=== PATIENT | male | born 1980 | race Caucasian/White ===

== ENCOUNTER 2019-10-25 16:06 | Emergency (ER) | payer SELFPAY ==
[2019-10-25] MEDS ORDERED: LORAZEPAM 1 MG TABLET ONE (16:51)
--- NOTE | 2019-10-25 17:18 | EDPHYS ---
Physician Documentation [facility] Name: Hermann Blackburn Age: 38 yrs Sex: Male : 1980 Arrival Date: 10/25/2019 Time: 16:08 Bed 5 Private MD: ED Physician Kirk Watson HPI: 10/24 16:42 This 38 yrs old Male presents to ER via Ambulatory with complaints of Anxiety.rn 16:42 The patient presents to the emergency department with anxiety. Onset: The rn symptoms/episode began/occurred yesterday. Severity of symptoms: At their worst the symptoms were moderate in the emergency department the symptoms are unchanged. The patient has experienced similar episodes in the past. The patient has not recently seen a physician. Reports having a lot of anxiety lately, recently moved from [place], denies drug use, states these symptoms identical to previous panic attacks. No new symptoms. Thoughts are racing but denies suicidal or homicidal thoughts. Denies hallucinations.. Historical: - Allergies: 16:30 No Known Allergies; ca1 - Home Meds: 16:30 None [Active]; ca1 - PMHx: 16:30 Anxiety; Hypertension; ca1 - PSHx: 16:30 None; ca1 - Immunization history:: Adult Immunizations up to date, Flu vaccine is up to date. - Social history:: Smoking status: Patient reports the use of cigarette tobacco products, smokes one pack cigarettes per day. Patient uses alcohol, Patient/guardian denies using street drugs, IV drugs. ROS: 16:52 Constitutional: Negative for fever, chills, and weight loss, Neck: Negative for injury, rn pain, and swelling, Cardiovascular: Negative for chest pain, palpitations, and edema, Respiratory: Negative for shortness of breath, cough, wheezing, and pleuritic chest pain, Abdomen/GI: Negative for abdominal pain, nausea, vomiting, diarrhea, and constipation, MS/Extremity: Negative for injury and deformity, Skin: Negative for injury, rash, and discoloration, Neuro: Negative for headache, weakness, numbness, tingling, and seizure. Exam: 16:52 Constitutional: This is a well developed, well nourished patient who is awake, alert, rn and in no acute distress. Ambulatory to room without difficulty or assistance. Head/Face: Normocephalic, atraumatic. ENT: MMM Cardiovascular: Tachycardic, regular Respiratory: Speaking full sentences, no increased respiratory effort Skin: Warm, dry MS/ Extremity: Pulses equal, no cyanosis. Neurovascular intact. Full, normal range of motion. Equal circumference. Neuro: Awake and alert, GCS 15, oriented to person, place, time, and situation. Cranial nerves II-XII grossly intact. Motor strength 5/5 in all extremities. Sensory grossly intact. Cerebellar exam normal. Normal gait. Vital Signs: 16:23 BP 133 / 90; Pulse 108; Resp 17 S; Temp 97.6(TE); Pulse Ox 97% on R/A; Weight 68.04 kg ca1 (R); Height 5 ft. 11 in. (180.34 cm) (R); Pain 0/10; 17:10 BP 120 / 90; Pulse 98; Resp 16; Pulse Ox 100% on R/A; Pain 0/10; iw 16:23 Body Mass Index 20.92 (68.04 kg, 180.34 cm) ca1 MDM: 16:30 Patient medically screened. rn 17:17 Differential diagnosis: anxiety, paranoia, bipolar. Data reviewed: vital signs, nurses rn notes, and as a result, I will discharge patient. Counseling: I had a detailed discussion with the patient and/or guardian regarding: the historical points, exam findings, and any diagnostic results supporting the discharge/admit diagnosis, the need for outpatient follow up, to return to the emergency department if symptoms worsen or persist or if there are any questions or concerns that arise at home. Response to treatment: the patient's symptoms have markedly improved after treatment, and as a result, I will discharge patient. Special discussion: I discussed with the patient/guardian in detail that at this point there is no indication for admission to the hospital. It is understood, however, that if the symptoms persist or worsen the patient needs to return immediately for re-evaluation. ED course: Has ride home, feels better, recommend pcp and psychiatric f/u. . Administered Medications: 16:51 Drug: Ativan 2 mg Route: PO; iw 17:24 Follow up: Response: No adverse reaction iw Disposition: 10/25/19 17:18 Discharged to Home. Impression: Anxiety disorder, unspecified. - Condition is Stable. - Discharge Instructions: Panic Attacks, Generalized Anxiety Disorder. - Medication Reconciliation Form, Thank You Letter, Antibiotic Education, Prescription Opioid Use form. - Follow up: Private Physician; When: As needed; Reason: Recheck today's complaints, Re-evaluation by your physician. - Problem is an acute exacerbation. - Symptoms have improved. Signatures: Melita Lopez RN RN iw Kirk Watson MD MD rn Acob, JEFF Caicedo RN ca1 Corrections: (The following items were deleted from the chart) 17:01 16:52 Constitutional: This is a well developed, well nourished patient who is awake, rn alert, and in no acute distress. Ambulatory to room without difficulty or assistance. rn 17:24 17:18 10/25/2019 17:18 Discharged to Home. Impression: Anxiety disorder, unspecified. iw Condition is Stable. Forms are Medication Reconciliation Form, Thank You Letter, Antibiotic Education, Prescription Opioid Use. Follow up: Private Physician; When: As needed; Reason: Recheck today's complaints, Re-evaluation by your physician. Problem is an acute exacerbation. Symptoms have improved. rn
--- NOTE | 2019-10-25 17:18 | ER ---
Nurse's Notes [facility] Name: Hermann Blackburn Age: 38 yrs Sex: Male : 1980 Arrival Date: 10/25/2019 Time: 16:08 Bed 5 Private MD: Diagnosis: Anxiety disorder, unspecified Presentation: 10/24 16:23 Chief complaint: Patient states: I have panic attacks periodically. I come to the ER, ca1 they give me Ativan I feel better after few hours. I am supposed to take medications but there are some process I have to get through but I haven't done yet because of work and because of everything that's going on. Today, around 1pm I started having anxiety attacks, I can't breathe, some SOB, rapid thoughts. Coronavirus screen: Proceed with normal triage. Patient denies a cough. Patient reports shortness of breath or difficulty breathing. Patient denies measured and/or subjective temperature greater than 100.4F prior to today's visit. Patient denies travel on a cruise ship or to a country the [facility] currently lists as an affected area. Patient denies contact with known and/or suspected case of COVID-19. Ebola Screen: Patient negative for fever greater than or equal to 101.5 degrees Fahrenheit, and additional compatible Ebola Virus Disease symptoms Patient denies exposure to infectious person. Patient denies travel to an Ebola-affected area in the 21 days before illness onset. No symptoms or risks identified at this time. Initial Sepsis Screen: Does the patient meet any 2 criteria? No. Patient's initial sepsis screen is negative. Does the patient have a suspected source of infection? No. Patient's initial sepsis screen is negative. Risk Assessment: Do you want to hurt yourself or someone else? Patient reports no desire to harm self or others. Onset of symptoms was October 25, 2019 at 13:00. 16:23 Method Of Arrival: Ambulatory ca1 16:23 Acuity: MEGHNA 3 ca1 16:34 Note Reports taking half of Xanax [employer]. ca1 Historical: - Allergies: 16:30 No Known Allergies; ca1 - Home Meds: 16:30 None [Active]; ca1 - PMHx: 16:30 Anxiety; Hypertension; ca1 - PSHx: 16:30 None; ca1 - Immunization history:: Adult Immunizations up to date, Flu vaccine is up to date. - Social history:: Smoking status: Patient reports the use of cigarette tobacco products, smokes one pack cigarettes per day. Patient uses alcohol, Patient/guardian denies using street drugs, IV drugs. Screenin:42 Abuse screen: Denies threats or abuse. Denies injuries from another. Nutritional iw screening: No deficits noted. Tuberculosis screening: No symptoms or risk factors identified. Fall Risk None identified. Assessment: 16:41 General: Appears in no apparent distress. comfortable, well developed, Behavior is iw cooperative, anxious. Pain: Denies pain. Neuro: Level of Consciousness is awake, alert, obeys commands, Oriented to person, place, time, situation, Moves all extremities. Full function. Cardiovascular: Patient's skin is warm and dry. Respiratory: Respiratory effort is even, unlabored, Respiratory pattern is regular, symmetrical. GI: Abdomen is flat, non-distended. Derm: Skin is intact, is healthy with good turgor. Musculoskeletal: Range of motion: intact in all extremities. Vital Signs: 16:23 BP 133 / 90; Pulse 108; Resp 17 S; Temp 97.6(TE); Pulse Ox 97% on R/A; Weight 68.04 kg ca1 (R); Height 5 ft. 11 in. (180.34 cm) (R); Pain 0/10; 17:10 BP 120 / 90; Pulse 98; Resp 16; Pulse Ox 100% on R/A; Pain 0/10; iw 16:23 Body Mass Index 20.92 (68.04 kg, 180.34 cm) ca1 ED Course: 16:08 Patient arrived in ED. as 16:28 Triage completed. ca1 16:30 Kirk Watson MD is Attending Physician. rn 16:30 Arm band placed on right wrist. ca1 16:35 Melita Lopez RN is Primary Nurse. iw 16:42 Patient has correct armband on for positive identification. iw 16:42 No provider procedures requiring assistance completed. Patient did not have IV access iw during this emergency room visit. Administered Medications: 16:51 Drug: Ativan 2 mg Route: PO; iw 17:24 Follow up: Response: No adverse reaction iw Outcome: 17:18 Discharge ordered by . rn 17:24 Patient left the ED. iw 17:25 Discharged to home ambulatory. iw 17:25 Condition: good 17:25 Discharge instructions given to patient, Instructed on discharge instructions, follow up and referral plans. Signatures: Keli Dangelo Irene, RN RN iw Kirk Watson MD MD rn AcMarifer benoit RN RN ca1
[2019-10-25 17:30] VITALS: TEMP 97.6
[2019-10-25 17:31] VITALS: BP 120/90; O2SAT 100
== END 2019-10-25 17:24 | disposition home or self-care (01) ==
LOC: ER 16:06
DX: F41.9 Anxiety disorder, unspecified (principal); I10 Essential (primary) hypertension; F17.210 Nicotine dependence, cigarettes, uncomplicated
CPT/HCPCS: 99283

== ENCOUNTER 2019-11-04 22:16 | Emergency (ER) | payer SELFPAY ==
--- NOTE | 2019-11-05 00:06 | EDPHYS ---
Physician Documentation [facility] Name: Hermann Blackburn Age: 38 yrs Sex: Male : 1980 Arrival Date: 11/04/2019 Time: 22:17 Bed 17 Private MD: ED Physician Kenneth Meade HPI: 11/04 00:00 This 38 yrs old Male presents to ER via Ambulatory with complaints of snw Anxiety, PTSD. 00:00 Associated signs and symptoms: Pertinent positives: unable to sleep, cannot calm snw himself, was here before and had ativan which helps. The patient has experienced similar episodes in the past, multiple times, and the symptoms today are exactly the same. The patient has been recently seen by a physician: The patient has been recently seen at the [facility], last week, for similar complaints encouraged to f/u psych and pcp. Historical: - Allergies: 11/03 22:33 No Known Allergies; ao - Home Meds: 22:33 None [Active]; ao - PMHx: 22:33 Anxiety; Hypertension; PTSD; Depression; ao - PSHx: 22:33 None; ao - Immunization history:: Adult Immunizations up to date. - Social history:: Smoking status: Patient reports the use of cigarette tobacco products, smokes one pack cigarettes per day. Patient/guardian denies using alcohol, street drugs. ROS: 23:59 Constitutional: Negative for fever, chills, and weight loss, Eyes: Negative for injury, snw pain, redness, and discharge, ENT: Negative for injury, pain, and discharge, Neck: Negative for injury, pain, and swelling, Cardiovascular: Negative for chest pain, palpitations, and edema, Respiratory: Negative for shortness of breath, cough, wheezing, and pleuritic chest pain, Abdomen/GI: Negative for abdominal pain, nausea, vomiting, diarrhea, and constipation, Back: Negative for injury and pain, : Negative for injury, bleeding, discharge, and swelling, MS/Extremity: Negative for injury and deformity, Skin: Negative for injury, rash, and discoloration, Neuro: Negative for headache, weakness, numbness, tingling, and seizure. 23:59 Psych: Positive for anxiety, depression, paranoia . Exam: 23:58 Head/Face: Normocephalic, atraumatic. snw 23:58 ENT: Nares patent. No nasal discharge, no septal abnormalities noted. Tympanic membranes are normal and external auditory canals are clear. Oropharynx with no redness, swelling, or masses, exudates, or evidence of obstruction, uvula midline. Mucous membranes moist. Neck: Trachea midline, no thyromegaly or masses palpated, and no cervical lymphadenopathy. Supple, full range of motion without nuchal rigidity, or vertebral point tenderness. No Meningismus. Chest/axilla: Normal chest wall appearance and motion. Nontender with no deformity. No lesions are appreciated. Cardiovascular: Regular rate and rhythm with a normal S1 and S2. No gallops, murmurs, or rubs. Normal PMI, no JVD. No pulse deficits. Respiratory: Lungs have equal breath sounds bilaterally, clear to auscultation and percussion. No rales, rhonchi or wheezes noted. No increased work of breathing, no retractions or nasal flaring. Abdomen/GI: Soft, non-tender, with normal bowel sounds. No distension or tympany. No guarding or rebound. No evidence of tenderness throughout. Back: No spinal tenderness. No costovertebral tenderness. Full range of motion. Skin: Warm, dry with normal turgor. Normal color with no rashes, no lesions, and no evidence of cellulitis. MS/ Extremity: Pulses equal, no cyanosis. Neurovascular intact. Full, normal range of motion. Neuro: Awake and alert, GCS 15, oriented to person, place, time, and situation. Cranial nerves II-XII grossly intact. Motor strength 5/5 in all extremities. Sensory grossly intact. Cerebellar exam normal. Normal gait. 23:58 Constitutional: The patient appears alert, awake, anxious, restless. 23:58 Eyes: Pupils: equal, round, and reactive to light and accomodation, right pupil is approximately 2 mm(s), left pupil is approximately 2 mm(s), Extraocular movements: no acute changes, Conjunctiva: normal. 23:58 Psych: Behavior/mood is cooperative, anxious, paranoid. Affect is animated, Oriented to person, place, time, Patient has no thoughts/intents to harm self or others. Judgement / Insight is normal. Memory is normal. Vital Signs: 22:27 BP 124 / 99; Pulse 98; Resp 18; Temp 100.3(TE); Pulse Ox 99% on R/A; Weight 68.04 kg; ao Height 5 ft. 11 in. (180.34 cm); Pain 0/10; 23:38 BP 130 / 86; Pulse 60; Resp 18; Pulse Ox 98% on R/A; Pain 0/10; jb4 11/04 00:00 BP 124 / 84; Pulse 62; Resp 16; Pulse Ox 100% on R/A; jb4 11/03 22:27 Body Mass Index 20.92 (68.04 kg, 180.34 cm) ao MDM: 11/03 23:54 Patient medically screened. 7 11/04 00:02 Data reviewed: vital signs, nurses notes. Data interpreted: Pulse oximetry: on room air snw is 98 %. Interpretation: normal. Counseling: I had a detailed discussion with the patient and/or guardian regarding: the historical points, exam findings, and any diagnostic results supporting the discharge/admit diagnosis, the need for outpatient follow up, to return to the emergency department if symptoms worsen or persist or if there are any questions or concerns that arise at home. Response to treatment: the patient's symptoms have mildly improved after treatment. Special discussion: Based on the history and exam findings, there is no indication for further emergent testing or inpatient evaluation. I discussed with the patient/guardian the need to see the primary care provider for further evaluation of the symptoms. I discussed with the patient/guardian the need to see the psychiatrist for further evaluation of the symptoms. ED course: Pt notified that Ativan is not appropriate for lobsterman management of anxiety. Encouraged to f/u psych. Administered Medications: 00:17 Drug: Ativan 1 mg Route: PO; jb4 00:17 Follow up: Response: Medication administered at discharge. jb4 Disposition: 06:39 Co-signature as Attending Physician, Kenneth Meade MD. mh7 Disposition: 11/05/19 00:05 Discharged to Home. Impression: Anxiety disorder, unspecified, Panic disorder [episodic paroxysmal anxiety] without agoraphobia. - Condition is Stable. - Discharge Instructions: Panic Attacks, Generalized Anxiety Disorder. - Medication Reconciliation Form, Thank You Letter, Antibiotic Education, Prescription Opioid Use form. - Follow up: Emergency Department; When: As needed; Reason: Worsening of condition. Follow up: Private Physician; When: 1 - 2 days; Reason: Recheck today's complaints, Continuance of care, Re-evaluation by your physician. Signatures: Jodi Llanes FNP-C [employer]GER [employer] Francisco Javier Taylor, RN RN Matt Varela RN RN jb4 Lenard Brown mw2 Kenneth Meade MD MD mh7 Corrections: (The following items were deleted from the chart) 00:17 00:05 11/05/2019 00:05 Discharged to Home. Impression: Anxiety disorder, unspecified; mw2 Panic disorder [episodic paroxysmal anxiety] without agoraphobia. Condition is Stable. Forms are Medication Reconciliation Form, Thank You Letter, Antibiotic Education, Prescription Opioid Use. Follow up: Emergency Department; When: As needed; Reason: Worsening of condition. Follow up: Private Physician; When: 1 - 2 days; Reason: Recheck today's complaints, Continuance of care, Re-evaluation by your physician. [facility] 00:17 00:17 11/05/2019 00:05 Discharged to Home. Impression: Anxiety disorder, unspecified; mw2 Panic disorder [episodic paroxysmal anxiety] without agoraphobia. Condition is Stable. Discharge Instructions: Panic Attacks, Generalized Anxiety Disorder. Forms are Medication Reconciliation Form, Thank You Letter, Antibiotic Education, Prescription Opioid Use. Follow up: Emergency Department; When: As needed; Reason: Worsening of condition. Follow up: Private Physician; When: 1 - 2 days; Reason: Recheck today's complaints, Continuance of care, Re-evaluation by your physician. mw2
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
[2019-11-05] MEDS ORDERED: LORAZEPAM 1 MG TABLET ONE (00:22)
[2019-11-05 00:34] VITALS: TEMP 100.3
[2019-11-05 00:39] VITALS: BP 130/86; O2SAT 98
== END 2019-11-05 00:17 | disposition home or self-care (01) ==
LOC: ER 22:16
DX: F41.0 Panic disorder [episodic paroxysmal anxiety] (principal); F43.10 Post-traumatic stress disorder, unspecified; F17.210 Nicotine dependence, cigarettes, uncomplicated; I10 Essential (primary) hypertension
CPT/HCPCS: 99283

== ENCOUNTER 2019-11-12 03:22 | Emergency (ER) | payer SELFPAY ==
--- NOTE | 2019-11-12 03:54 | ER ---
Nurse's Notes [facility] Name: Hermann Blackburn Age: 38 yrs Sex: Male : 1980 Arrival Date: 11/12/2019 Time: 03:24 Bed 17 Private MD: Diagnosis: Encounter for issue of repeat prescription Presentation: 11/11 03:25 Chief complaint: EMS states: he has PTSD and anxiety attack tonight. been out of his mg2 medication. last time he took ativan was 4 days ago here in ED. Coronavirus screen: Proceed with normal triage. Patient denies a cough. Patient denies shortness of breath or difficulty breathing. Patient denies measured and/or subjective temperature greater than 100.4F prior to today's visit. Patient denies travel on a cruise ship or to a country the [facility] currently lists as an affected area. Patient denies contact with known and/or suspected case of COVID-19. Ebola Screen: No symptoms or risks identified at this time. Initial Sepsis Screen: Does the patient meet any 2 criteria? No. Patient's initial sepsis screen is negative. Does the patient have a suspected source of infection? No. Patient's initial sepsis screen is negative. Risk Assessment: Do you want to hurt yourself or someone else? Patient reports no desire to harm self or others. Onset of symptoms was November 12, 2019. 03:25 Method Of Arrival: EMS: [place] [id number] 03:25 Acuity: MEGHNA 4 mg2 Triage Assessment: 03:32 General: Appears in no apparent distress. comfortable, Behavior is calm, cooperative. mg2 Pain: Denies pain. 03:32 EENT: No deficits noted. Neuro: Level of Consciousness is awake, alert, obeys commands, mg2 Oriented to person, place, time, situation, Reports anxiety. Cardiovascular: Capillary refill < 3 seconds Patient's skin is warm and dry. Respiratory: Airway is patent Respiratory effort is even, unlabored, Respiratory pattern is regular, symmetrical. GI: No signs and/or symptoms were reported involving the gastrointestinal system. : No signs and/or symptoms were reported regarding the genitourinary system. Derm: Skin is intact, is healthy with good turgor, Skin is pink, warm \T\ dry. normal. Musculoskeletal: Circulation, motion, and sensation intact. Capillary refill < 3 seconds. Historical: - Allergies: 03:31 No Known Allergies; mg2 - Home Meds: 03:31 Ativan Oral [Active]; mg2 - PMHx: 03:31 Anxiety; Depression; Hypertension; PTSD; mg2 - PSHx: 03:31 None; mg2 - Immunization history:: Flu vaccine status is unknown. - Social history:: Smoking status: Patient reports the use of cigarette tobacco products, smokes one pack cigarettes per day. Patient uses alcohol, occasionally. Patient/guardian denies using street drugs, IV drugs. Screenin:32 Abuse screen: Denies threats or abuse. Denies injuries from another. Nutritional mg2 screening: No deficits noted. Tuberculosis screening: No symptoms or risk factors identified. Fall Risk None identified. Assessment: 03:32 Reassessment: see triage assessment. mg2 Vital Signs: 03:25 Pulse 67; Temp 98.6; Pulse Ox 100% on R/A; sg 03:25 BP 142 / 80; Resp 18; sg ED Course: 03:24 Patient arrived in ED. sg 03:28 Ulices Krishnan, RN is Primary Nurse. mg2 03:30 Triage completed. mg2 03:31 Arm band placed on. mg2 03:33 Patient has correct armband on for positive identification. mg2 03:33 No provider procedures requiring assistance completed. Patient did not have IV access mg2 during this emergency room visit. 03:37 Gregorio Choudhary MD is Attending Physician. tw4 Administered Medications: 04:15 Drug: Ativan 1 mg Route: PO; mg2 04:15 Follow up: Response: No adverse reaction; Medication administered at discharge. mg2 Outcome: 03:52 Discharge ordered by . [facility] 04:16 Discharged to home ambulatory. mg2 04:16 Condition: good 04:16 Discharge instructions given to patient, Instructed on discharge instructions, follow up and referral plans. Demonstrated understanding of instructions, follow-up care. 04:16 Patient left the ED. mg2 Signatures: Josue Jaramillo RN RN sg Wadley, Terrence, MD MD [facility] Ulices Krishnan RN RN mg2
--- NOTE | 2019-11-12 03:54 | EDPHYS ---
Physician Documentation [facility] Name: Hermann Blackburn Age: 38 yrs Sex: Male : 1980 Arrival Date: 11/12/2019 Time: 03:24 Bed 17 Private MD: ED Physician Gregorio Choudhary HPI: 11/11 04:41 This 38 yrs old Male presents to ER via EMS with complaints of Anxiety. tw4 04:41 pt states he is having anxiety and needs medication for his anxiety and PTSD. Onset: tw4 The symptoms/episode began/occurred today. Severity of symptoms: At their worst the symptoms were mild in the emergency department the symptoms are unchanged. The patient has not experienced similar symptoms in the past. Historical: - Allergies: 03:31 No Known Allergies; mg2 - Home Meds: 03:31 Ativan Oral [Active]; mg2 - PMHx: 03:31 Anxiety; Depression; Hypertension; PTSD; mg2 - PSHx: 03:31 None; mg2 - Immunization history:: Flu vaccine status is unknown. - Social history:: Smoking status: Patient reports the use of cigarette tobacco products, smokes one pack cigarettes per day. Patient uses alcohol, occasionally. Patient/guardian denies using street drugs, IV drugs. ROS: 04:41 Constitutional: Negative for fever, chills, and weight loss, Eyes: Negative for injury, tw4 pain, redness, and discharge, Cardiovascular: Negative for chest pain, palpitations, and edema, Respiratory: Negative for shortness of breath, cough, wheezing, and pleuritic chest pain, Abdomen/GI: Negative for abdominal pain, nausea, vomiting, diarrhea, and constipation, Back: Negative for injury and pain, Skin: Negative for injury, rash, and discoloration, Neuro: Negative for headache, weakness, numbness, tingling, and seizure. 04:41 Psych: Positive for anxiety, Negative for depression, drug dependence, alcohol dependence, auditory hallucinations, visual hallucinations, homicidal ideation, insomnia, suicide gesture. Exam: 04:44 Constitutional: This is a well developed, well nourished patient who is awake, alert, tw4 and in no acute distress. Head/Face: Normocephalic, atraumatic. Eyes: Pupils equal round and reactive to light, extra-ocular motions intact. Lids and lashes normal. Conjunctiva and sclera are non-icteric and not injected. Cornea within normal limits. Periorbital areas with no swelling, redness, or edema. Chest/axilla: Normal chest wall appearance and motion. Nontender with no deformity. No lesions are appreciated. Cardiovascular: Regular rate and rhythm with a normal S1 and S2. No gallops, murmurs, or rubs. Normal PMI, no JVD. No pulse deficits. Respiratory: Lungs have equal breath sounds bilaterally, clear to auscultation and percussion. No rales, rhonchi or wheezes noted. No increased work of breathing, no retractions or nasal flaring. Abdomen/GI: Soft, non-tender, with normal bowel sounds. No distension or tympany. No guarding or rebound. No evidence of tenderness throughout. Back: No spinal tenderness. No costovertebral tenderness. Full range of motion. MS/ Extremity: Pulses equal, no cyanosis. Neurovascular intact. Full, normal range of motion. Neuro: Awake and alert, GCS 15, oriented to person, place, time, and situation. Cranial nerves II-XII grossly intact. Motor strength 5/5 in all extremities. Sensory grossly intact. Cerebellar exam normal. Normal gait. Psych: Awake, alert, with orientation to person, place and time. Behavior, mood, and affect are within normal limits. Vital Signs: 03:25 Pulse 67; Temp 98.6; Pulse Ox 100% on R/A; sg 03:25 BP 142 / 80; Resp 18; sg MDM: 03:37 Patient medically screened. tw4 03:47 Differential Diagnosis medication refill, anxiety. Data reviewed: vital signs, nurses tw4 notes. Data interpreted: Pulse oximetry: Interpretation: normal. Test interpretation: by ED physician or midlevel provider: not applicable. Counseling: I had a detailed discussion with the patient and/or guardian regarding: the historical points, exam findings, and any diagnostic results supporting the discharge/admit diagnosis. Medical screen evaluation completed. EMTALA emergency medical condition absent. Special discussion: I discussed with the patient/guardian in detail that at this point there is no indication for admission to the hospital. It is understood, however, that if the symptoms persist or worsen the patient needs to return immediately for re-evaluation. Administered Medications: 04:15 Drug: Ativan 1 mg Route: PO; mg2 04:15 Follow up: Response: No adverse reaction; Medication administered at discharge. mg2 Disposition: 11/12/19 03:52 Discharged to Home. Impression: Encounter for issue of repeat prescription. - Condition is Stable. - Medication Reconciliation Form, Thank You Letter, Antibiotic Education, Prescription Opioid Use form. - Follow up: Private Physician; When: Upon discharge from the Emergency Department; Reason: Recheck today's complaints, Continuance of care, Re-evaluation by your physician. - Problem is new. - Symptoms are unchanged. Signatures: Gregorio Choudhary MD MD tw4 Ulices Krishnan RN RN mg2 Corrections: (The following items were deleted from the chart) 04:16 03:52 11/12/2019 03:52 Discharged to Home. Impression: Encounter for issue of repeat mg2 prescription. Condition is Stable. Forms are Medication Reconciliation Form, Thank You Letter, Antibiotic Education, Prescription Opioid Use. Follow up: Private Physician; When: Upon discharge from the Emergency Department; Reason: Recheck today's complaints, Continuance of care, Re-evaluation by your physician. Problem is new. Symptoms are unchanged. tw4
[2019-11-12] MEDS ORDERED: LORAZEPAM 1 MG TABLET ONE (04:18)
[2019-11-12 04:21] VITALS: BP 142/80; TEMP 98.6; O2SAT 100
== END 2019-11-12 04:16 | disposition home or self-care (01) ==
LOC: ER 03:22
DX: F41.9 Anxiety disorder, unspecified (principal); F17.210 Nicotine dependence, cigarettes, uncomplicated; F43.10 Post-traumatic stress disorder, unspecified; Z76.0 Encounter for issue of repeat prescription
CPT/HCPCS: 99283

== ENCOUNTER 2020-02-17 20:43 | Emergency (ER) | payer SELFPAY ==
--- OUTSIDE RECORDS SUMMARY | 2020-02-17 20:45 | XMS REPORT | Continuity of Care Document ---
:1980 Author Organization [facility] t Address [address] [place] [address] [address] [place] [address] Care Team Providers Name Role Phone Singer HAMMOND Attending Clinician Problems This patient has no known problems. Allergies, Adverse Reactions, Alerts This patient has no known allergies or adverse reactions. Medications This patient has no known medications. Procedures This patient has no known procedures. Encounters Start End Encounter Admission Attending Care Care Encounter Source Date/Time Date/Time Type Type Clinicians Facility Department ID 2019-11-19 2019-11-19 Emergency Singer [facility] [id number] 13:21:25 14:37:00 Tono Castaneda [id number] [place] [id number] [place] [id number] Results This patient has no known results.
[2020-02-17] MEDS ORDERED: LORAZEPAM 1 MG TABLET ONE ×2 (21:13→21:34)
--- NOTE | 2020-02-17 21:47 | EDPHYS ---
Physician Documentation [facility] Name: Hermann Blackburn Age: 39 yrs Sex: Male : 1980 Arrival Date: 02/17/2020 Time: 20:43 Bed 2 Private MD: ED Physician Kenneth Meade HPI: 02/16 21:02 This 39 yrs old Male presents to ER via Ambulatory with complaints of Anxiety.mh7 21:02 The patient presents to the emergency department with anxiety, over unknown mh7 circumstances. Onset: The symptoms/episode began/occurred 3 day(s) ago. Past psychiatric history: Prior diagnosis: depression, Anxiety. Associated signs and symptoms: Pertinent positives; hallucinations, Hearing voices sometimes, Pertinent negatives: abdominal pain, chest pain, chills, delusions, depression, fever, headache, homicidal ideation, nausea, night sweats, palpitations, paranoia, shortness of breath, substance abuse, suicide ideation, tremor, vomiting. Severity of symptoms: At their worst the symptoms were moderate yesterday, in the emergency department the symptoms have improved moderately. The patient has experienced similar episodes in the past, multiple times. Historical: - PMHx: 21:54 Anxiety; Hypertension; Depression; PTSD; mt2 - Immunization history:: Adult Immunizations up to date. - Social history:: Smoking status: Patient reports the use of cigarette tobacco products, smokes one pack cigarettes per day. ROS: 21:15 Constitutional: Negative for fever, chills, and weight loss, Eyes: Negative for injury, mh7 pain, redness, and discharge, ENT: Negative for injury, pain, and discharge, Neck: Negative for injury, pain, and swelling, Cardiovascular: Negative for chest pain, palpitations, and edema, Respiratory: Negative for shortness of breath, cough, wheezing, and pleuritic chest pain, Abdomen/GI: Negative for abdominal pain, nausea, vomiting, diarrhea, and constipation, Back: Negative for injury and pain, : Negative for injury, bleeding, discharge, and swelling, MS/Extremity: Negative for injury and deformity, Skin: Negative for injury, rash, and discoloration, Neuro: Negative for headache, weakness, numbness, tingling, and seizure, Allergy/Immunology: Negative for hives, rash, and allergies, Endocrine: Negative for neck swelling, polydipsia, polyuria, polyphagia, and marked weight changes, Hematologic/Lymphatic: Negative for swollen nodes, abnormal bleeding, and unusual bruising. Exam: 21:15 Head/Face: Normocephalic, atraumatic. Eyes: Pupils equal round and reactive to light, mh7 extra-ocular motions intact. Lids and lashes normal. Conjunctiva and sclera are non-icteric and not injected. Cornea within normal limits. Periorbital areas with no swelling, redness, or edema. Neck: Trachea midline, no thyromegaly or masses palpated, and no cervical lymphadenopathy. Supple, full range of motion without nuchal rigidity, or vertebral point tenderness. No Meningismus. Chest/axilla: Normal chest wall appearance and motion. Nontender with no deformity. No lesions are appreciated. Cardiovascular: Regular rate and rhythm with a normal S1 and S2. No gallops, murmurs, or rubs. Normal PMI, no JVD. No pulse deficits. Respiratory: Lungs have equal breath sounds bilaterally, clear to auscultation and percussion. No rales, rhonchi or wheezes noted. No increased work of breathing, no retractions or nasal flaring. Abdomen/GI: Soft, non-tender, with normal bowel sounds. No distension or tympany. No guarding or rebound. No evidence of tenderness throughout. Back: No spinal tenderness. No costovertebral tenderness. Full range of motion. Skin: Warm, dry with normal turgor. Normal color with no rashes, no lesions, and no evidence of cellulitis. MS/ Extremity: Pulses equal, no cyanosis. Neurovascular intact. Full, normal range of motion. Neuro: Awake and alert, GCS 15, oriented to person, place, time, and situation. Cranial nerves II-XII grossly intact. Motor strength 5/5 in all extremities. Sensory grossly intact. Cerebellar exam normal. Normal gait. 21:15 Constitutional: The patient appears in no acute distress, alert, awake, comfortable, anxious. 21:15 Psych: Behavior/mood is pleasant, cooperative, anxious, Affect is calm, Oriented to person, place, time, Patient has no thoughts/intents to harm self or others. Judgement / Insight is normal. Memory is normal. Delusions/hallucinations are not present. Vital Signs: 20:56 BP 153 / 96; Pulse 85; Resp 18; Temp 98.5; Pulse Ox 98% on R/A; Weight 68.04 kg; Height ea 5 ft. 11 in. (180.34 cm); 20:56 Body Mass Index 20.92 (68.04 kg, 180.34 cm) ea MDM: 21:01 Patient medically screened. [facility] 21:45 Differential diagnosis: depression, psychosis secondary to non-compliance, Anxiety. [facility] Data reviewed: vital signs, nurses notes, old medical records. Data interpreted: Pulse oximetry: on room air is 98 %. Interpretation: normal. Counseling: I had a detailed discussion with the patient and/or guardian regarding: the historical points, exam findings, and any diagnostic results supporting the discharge/admit diagnosis, the presence of at least one elevated blood pressure reading (>120/80) during this emergency department visit, the need for outpatient follow up, a psychiatrist, to return to the emergency department if symptoms worsen or persist or if there are any questions or concerns that arise at home. Response to treatment: the patient's symptoms have resolved after treatment, the patient's blood pressure is in an acceptable range, mental status has returned to baseline, the patient no longer shows bradycardia, the patient is not short of breath, the patient is not tachycardic, the patient's pain is gone, the patient's temperature has normalized, the patient is now symptom free, patient is well hydrated. Refusal of service: The patient/guardian displays adequate decision making capability and despite a detailed discussion of alternatives, benefits, risks, and consequences refuses: all lab tests. Administered Medications: 21:04 Drug: Ativan 1 mg Route: PO; ea 21:55 Follow up: Response: No adverse reaction; Anxiety decreased mt2 21:25 Drug: Ativan 1 mg Route: PO; ea 21:54 Follow up: Response: No adverse reaction; Anxiety decreased mt2 Disposition: 02/17 06:47 Co-signature as Attending Physician, Kenneth Meade MD. [facility] Disposition: 02/17/20 21:47 Discharged to Home. Impression: Anxiety. - Condition is Stable. - Discharge Instructions: Generalized Anxiety Disorder. - Medication Reconciliation Form, Thank You Letter, Antibiotic Education, Prescription Opioid Use form. - Follow up: Private Physician; When: 1 - 2 days; Reason: Worsening of condition, Recheck today's complaints, Continuance of care, Re-evaluation by your physician. Follow up: Mc Seals MD; When: 1 - 2 days; Reason: Worsening of condition, Recheck today's complaints. - Problem is an acute exacerbation. - Symptoms have improved. Signatures: Opal Pickens RN RN Kenneth Pisano MD MD mh7 Ivette Stevenson RN RN mt2 Corrections: (The following items were deleted from the chart) 02/16 21:55 21:47 02/17/2020 21:47 Discharged to Home. Impression: Anxiety. Condition is Stable. ea Forms are Medication Reconciliation Form, Thank You Letter, Antibiotic Education, Prescription Opioid Use. Follow up: Private Physician; When: 1 - 2 days; Reason: Worsening of condition, Recheck today's complaints, Continuance of care, Re-evaluation by your physician. Follow up: Mc Seals; When: 1 - 2 days; Reason: Worsening of condition, Recheck today's complaints. Problem is an acute exacerbation. Symptoms have improved. 7
--- NOTE | 2020-02-17 21:47 | ER ---
Nurse's Notes [facility] Name: Hermann Blackburn Age: 39 yrs Sex: Male : 1980 Arrival Date: 02/17/2020 Time: 20:43 Bed 2 Private MD: Diagnosis: Anxiety Presentation: 02/16 20:56 Chief complaint: Patient states: Reports he has been having anxiety attacks and has ea been hearing voices. Denies HI and SI . States "sometimes I just get really anxious and can't control my anxiety". Coronavirus screen: At this time, the client does not indicate any symptoms associated with coronavirus-19. Ebola Screen: No symptoms or risks identified at this time. Initial Sepsis Screen: Does the patient meet any 2 criteria? No. Patient's initial sepsis screen is negative. Does the patient have a suspected source of infection? No. Patient's initial sepsis screen is negative. Risk Assessment: Do you want to hurt yourself or someone else? Patient reports no desire to harm self or others. Onset of symptoms was February 17, 2020. 20:56 Method Of Arrival: Ambulatory ea 20:56 Acuity: MEGHNA 3 ea Triage Assessment: 20:59 General: Appears in no apparent distress. Behavior is calm, cooperative, appropriate ea for age. Pain: Denies pain. Historical: - PMHx: 21:54 Anxiety; Hypertension; Depression; PTSD; mt2 - Immunization history:: Adult Immunizations up to date. - Social history:: Smoking status: Patient reports the use of cigarette tobacco products, smokes one pack cigarettes per day. Screenin:56 Abuse screen: Denies threats or abuse. Nutritional screening: No deficits noted. ea Tuberculosis screening: No symptoms or risk factors identified. Fall Risk None identified. Assessment: 21:00 General: Appears in no apparent distress. Behavior is calm, cooperative, appropriate ea for age. Pain: Denies pain. Neuro: Level of Consciousness is awake, alert, obeys commands, Oriented to person, place, time. Cardiovascular: No deficits noted. Respiratory: Airway is patent Respiratory effort is even, unlabored, Respiratory pattern is regular, symmetrical. Derm: Skin is pink, warm \\T\\ dry. 21:53 Reassessment: Patient and/or family updated on plan of care and expected duration. Pain mt2 level reassessed. Patient is alert, oriented x 3, equal unlabored respirations, skin warm/dry/pink. Patient denies pain at this time. General: Appears in no apparent distress. Behavior is cooperative. 21:54 Reassessment: Patient and/or family updated on plan of care and expected duration. Pain ea level reassessed. Patient is alert, oriented x 3, equal unlabored respirations, skin warm/dry/pink. Discharge instruction given to patient, verbalized the understanding of instruction. Pt left ED ambulatory tolerating well. Vital Signs: 20:56 BP 153 / 96; Pulse 85; Resp 18; Temp 98.5; Pulse Ox 98% on R/A; Weight 68.04 kg; Height ea 5 ft. 11 in. (180.34 cm); 20:56 Body Mass Index 20.92 (68.04 kg, 180.34 cm) ea ED Course: 20:43 Patient arrived in ED. am2 20:47 Ivette Stevenson RN is Primary Nurse. mt2 20:47 Kenneth Meade MD is Attending Physician. [facility] 20:56 Patient has correct armband on for positive identification. Bed in low position. Call ea light in reach. 20:59 Triage completed. ea 20:59 Arm band placed on right wrist. Patient placed in an exam room, on a stretcher, on ea pulse oximetry. 21:46 Mc Seals MD is Referral Physician. [facility] 21:53 No provider procedures requiring assistance completed. Patient did not have IV access mt2 during this emergency room visit. Administered Medications: 21:04 Drug: Ativan 1 mg Route: PO; ea 21:55 Follow up: Response: No adverse reaction; Anxiety decreased mt2 21:25 Drug: Ativan 1 mg Route: PO; ea 21:54 Follow up: Response: No adverse reaction; Anxiety decreased mt2 Outcome: 21:47 Discharge ordered by . 7 21:54 Discharged to home ambulatory. mt2 21:54 Condition: good 21:54 Discharge instructions given to patient, Instructed on discharge instructions, follow up and referral plans. Demonstrated understanding of instructions, follow-up care. 21:55 Patient left the ED. ea Signatures: Brenda Moreira am2 Opal Pickens RN RN ea Holmes, Maurice, MD MD [facility] Graham, Ivette, RN RN mt2
[2020-02-22 17:25] VITALS: BP 153/96; TEMP 98.5; O2SAT 98
== END 2020-02-17 21:55 | disposition home or self-care (01) ==
LOC: ER 20:43
DX: F41.9 Anxiety disorder, unspecified (principal); I10 Essential (primary) hypertension; F43.10 Post-traumatic stress disorder, unspecified; F17.210 Nicotine dependence, cigarettes, uncomplicated
CPT/HCPCS: 93005; 99283

== ENCOUNTER 2020-03-04 19:31 | Emergency (ER) | payer SELFPAY ==
--- OUTSIDE RECORDS SUMMARY | 2020-03-04 19:34 | XMS REPORT | Continuity of Care Document ---
:1980 Author Organization [facility] t Address [address] [place] [address] Care Team Providers Name Role Phone Singer [...] Facility Department ID 2019-11-19 2019-11-19 Emergency Singer [facility] [id number] 13:21:25 14:37:00 Tono Castaneda [id number] [place] [id number] [place] [phone] [id number] Results This patient has no known results.
[2020-03-04 20:23] LABS: Absolute Lymphocytes (CBC) 2.3 K/uL (0.7-4.9); Basophils % 0.3 % (0-1.3); Hematocrit 44.5 % (39.6-49.0); Lymphocytes % 33.4 % (15.3-44.8); MPV 7.9 fL (7.6-11.3); RBC Red Blood Cell Count 5.11 M/uL (4.33-5.43)
[2020-03-04 20:25] LABS: Protime INR 0.97
[2020-03-04 20:36] LABS: Urine Blood NEGATIVE (NEG); Urine Glucose NEGATIVE (NEG); Urine Protein NEGATIVE (NEG); Urine Specific Gravity 1.015 (1.005-1.030)
[2020-03-04 20:39] LABS: ALT/SGPT 30 U/L (12-78); AST/SGOT 18 U/L (15-37); Albumin 4.1 g/dL (3.4-5.0); Alkaline Phosphatase 72 U/L (45-117); BUN Blood Urea Nitrogen 10 mg/dL (7-18); Bicarbonate 28 mmol/L (21-32); Bilirubin Direct < 0.1 mg/dL (0-0.2); Bilirubin Total 0.4 mg/dL (0.2-1.0); Glucose Level 93 mg/dL (74-106); Protein, Total 7.4 g/dL (6.4-8.2); Sodium Level 140 mmol/L (136-145)
[2020-03-04 20:49] LABS: Barbiturates NEGATIVE (NEGATIVE); Benzodiazepines NEGATIVE (NEGATIVE); Cocaine NEGATIVE (NEGATIVE); METHAMPHETAM NEGATIVE (NEGATIVE); Methadone NEGATIVE (NEGATIVE); Opiates NEGATIVE (NEGATIVE); Phencyclidine NEGATIVE (NEGATIVE); THC Cannibis NEGATIVE (NEGATIVE)
--- NOTE | 2020-03-04 21:01 | EDPHYS ---
Physician Documentation [facility] Name: Hermann Blackburn Age: 39 yrs Sex: Male : 1980 Arrival Date: 03/04/2020 Time: 19:33 Bed 17 Private MD: ED Physician Gregorio Choudhary HPI: 03/05 03:33 This 39 yrs old Male presents to ER via Ambulatory with complaints of tw4 Anxiety, HEARING VOICES. 03:33 The patient presents to the emergency department with psychosis, has experienced tw4 auditory hallucinations. Onset: The symptoms/episode began/occurred 2 week(s) ago, and became persistent today. Past psychiatric history: Prior diagnosis: bipolar disorder. Associated signs and symptoms: Pertinent positives; anxiety. Severity of symptoms: At their worst the symptoms were mild. The patient has not experienced similar symptoms in the past. 03:33 pt states that he has not been taking his medications. tw4 Historical: - Allergies: 03/04 19:40 No Known Allergies; jd3 - Home Meds: 19:40 None [Active]; jd3 - PMHx: 19:40 Anxiety; Depression; Hypertension; PTSD; jd3 - PSHx: 19:40 None; jd3 - Immunization history:: Adult Immunizations up to date. - Social history:: Smoking status: Patient reports the use of cigarette tobacco products, smokes one pack cigarettes per day. ROS: 03/05 03:33 Constitutional: Negative for fever, chills, and weight loss, Eyes: Negative for injury, tw4 pain, redness, and discharge, Cardiovascular: Negative for chest pain, palpitations, and edema, Respiratory: Negative for shortness of breath, cough, wheezing, and pleuritic chest pain, Abdomen/GI: Negative for abdominal pain, nausea, vomiting, diarrhea, and constipation, Back: Negative for injury and pain, Skin: Negative for injury, rash, and discoloration, Neuro: Negative for headache, weakness, numbness, tingling, and seizure. Psych: Positive for anxiety, auditory hallucinations. Exam: 03:33 Constitutional: This is a well developed, well nourished patient who is awake, alert, tw4 and in no acute distress. Head/Face: Normocephalic, atraumatic. Chest/axilla: Normal chest wall appearance and motion. Nontender with no deformity. No lesions are appreciated. Cardiovascular: Regular rate and rhythm with a normal S1 and S2. No gallops, murmurs, or rubs. Normal PMI, no JVD. No pulse deficits. Respiratory: Lungs have equal breath sounds bilaterally, clear to auscultation and percussion. No rales, rhonchi or wheezes noted. No increased work of breathing, no retractions or nasal flaring. Abdomen/GI: Soft, non-tender, with normal bowel sounds. No distension or tympany. No guarding or rebound. No evidence of tenderness throughout. Back: No spinal tenderness. No costovertebral tenderness. Full range of motion. MS/ Extremity: Pulses equal, no cyanosis. Neurovascular intact. Full, normal range of motion. Neuro: Awake and alert, GCS 15, oriented to person, place, time, and situation. Cranial nerves II-XII grossly intact. Motor strength 5/5 in all extremities. Sensory grossly intact. Cerebellar exam normal. Normal gait. 03:33 Psych: Behavior/mood is pleasant, Affect is calm, Oriented to person, place, time, Patient has no thoughts/intents to harm self or others. Judgement / Insight is normal. Vital Signs: 03/04 19:40 BP 130 / 87; Pulse 84; Resp 16 S; Temp 97.6(TE); Pulse Ox 97% on R/A; Weight 68.04 kg jd3 (R); Height 5 ft. 11 in. (180.34 cm) (R); Pain 0/10; 21:21 BP 123 / 83; Pulse 61; Resp 16; Pulse Ox 100% on R/A; jb4 19:40 Body Mass Index 20.92 (68.04 kg, 180.34 cm) jd3 MDM: 20:00 Patient medically screened. tw4 03/05 03:33 Differential diagnosis: drug withdrawal. acute psychotic break, psychosis secondary to tw4 non-compliance. Data reviewed: vital signs, nurses notes. Data interpreted: Pulse oximetry: Interpretation: normal. Counseling: I had a detailed discussion with the patient and/or guardian regarding: the historical points, exam findings, and any diagnostic results supporting the discharge/admit diagnosis, lab results. Special discussion: I discussed with the patient/guardian in detail that at this point there is no indication for admission to the hospital. It is understood, however, that if the symptoms persist or worsen the patient needs to return immediately for re-evaluation. 03/04 19:38 Order name: Acetaminophen; Complete Time: 20:43 03/04 20:43 Interpretation: Within normal limits: ACETA < 2.0. 03/04 19:38 Order name: Basic Metabolic Panel; Complete Time: 20:43 03/04 20:43 Interpretation: Normal except: GFR 85. 03/04 19:38 Order name: CBC with Diff; Complete Time: 20:43 03/04 20:44 Interpretation: Within normal limits. 03/04 19:38 Order name: ETOH Level; Complete Time: 20:44 03/04 20:44 Interpretation: Within normal limits: ETOH < 10. 03/04 19:38 Order name: Hepatic Function; Complete Time: 20:44 03/04 20:44 Interpretation: Within normal limits. 03/04 19:38 Order name: PT-INR; Complete Time: 20:43 03/04 20:44 Interpretation: Within normal limits: PT 11.4. 03/04 19:38 Order name: Ptt, Activated; Complete Time: 20:43 03/04 20:44 Interpretation: Within normal limits: PTT 30.9. 03/04 19:38 Order name: Salicylate; Complete Time: 20:43 03/04 20:45 Interpretation: Within normal limits: ROBIN 3.1. 03/04 19:38 Order name: Urine Drug Screen; Complete Time: 21:05 03/04 21:05 Interpretation: Within normal limits. 03/04 19:38 Order name: IV Saline Lock; Complete Time: 20:02 03/04 20:24 Order name: Urine Dipstick--Ancillary (enter results); Complete Time: 20:43 [facility] 03/04 20:45 Interpretation: Within normal limits. 03/04 19:38 Order name: Labs collected and sent; Complete Time: 20:02 03/04 19:38 Order name: Urine Dipstick-Ancillary (obtain specimen); Complete Time: 20:32 tw Administered Medications: 03/04 21:15 Not Given (Other Intervention Used): Depakene 250 mg PO once jb4 21:15 Drug: Ativan 0.5 mg Route: PO; jb4 21:22 Follow up: Response: No adverse reaction jb4 21:15 Drug: Depakote 250 mg Route: PO; jb4 21:22 Follow up: Response: No adverse reaction jb4 Disposition: 03/04/20 21:00 Discharged to Home. Impression: Anxiety disorder, unspecified. - Condition is Stable. - Discharge Instructions: Social Anxiety Disorder, Psychosis, Generalized Anxiety Disorder. - Prescriptions for Depakote 250 mg Oral Tablet - take 1 tablet by ORAL route every 12 hours; 60 tablet. - Medication Reconciliation Form, Thank You Letter, Antibiotic Education, Prescription Opioid Use form. - Follow up: Private Physician; When: Upon discharge from the Emergency Department; Reason: Recheck today's complaints, Continuance of care, Re-evaluation by your physician. - Problem is new. - Symptoms have improved. Signatures: Dispatcher [employer] EDMS Matt Rocha RN RN jb4 Akil Lamas RN RN jd3 Gregorio Choudhary MD MD tw4 Corrections: (The following items were deleted from the chart) 21:23 21:00 03/04/2020 21:00 Discharged to Home. Impression: Anxiety disorder, unspecified. jb4 Condition is Stable. Forms are Medication Reconciliation Form, Thank You Letter, Antibiotic Education, Prescription Opioid Use. Follow up: Private Physician; When: Upon discharge from the Emergency Department; Reason: Recheck today's complaints, Continuance of care, Re-evaluation by your physician. Problem is new. Symptoms have improved. tw4
--- NOTE | 2020-03-04 21:01 | ER ---
Nurse's Notes [facility] Name: Hermann Blackburn Age: 39 yrs Sex: Male : 1980 Arrival Date: 03/04/2020 Time: 19:33 Bed 17 Private MD: Diagnosis: Anxiety disorder, unspecified Presentation: 03/04 19:37 Chief complaint: Patient states: "I am having panic attacks and hearing voices. this is jd3 almost an everyday thing, but I don't have insurance for me to get the medications that I have prescribed to me. I don't want to hurt myself or others, I just want to stop this cycle of hearing these mean voices and the panic/anxiety attacks.". Coronavirus screen: At this time, the client does not indicate any symptoms associated with coronavirus-19. Ebola Screen: Patient negative for fever greater than or equal to 101.5 degrees Fahrenheit, and additional compatible Ebola Virus Disease symptoms. Initial Sepsis Screen: Does the patient meet any 2 criteria? No. Patient's initial sepsis screen is negative. Does the patient have a suspected source of infection? No. Patient's initial sepsis screen is negative. Risk Assessment: Do you want to hurt yourself or someone else? Patient reports no desire to harm self or others. Onset of symptoms was March 04, 2020. 19:37 Method Of Arrival: Ambulatory jd3 19:37 Acuity: MEGHNA 2 jd3 Historical: - Allergies: 19:40 No Known Allergies; jd3 - Home Meds: 19:40 None [Active]; jd3 - PMHx: 19:40 Anxiety; Depression; Hypertension; PTSD; jd3 - PSHx: 19:40 None; jd3 - Immunization history:: Adult Immunizations up to date. - Social history:: Smoking status: Patient reports the use of cigarette tobacco products, smokes one pack cigarettes per day. Screenin:00 Abuse screen: Denies threats or abuse. Nutritional screening: No deficits noted. jb4 Tuberculosis screening: No symptoms or risk factors identified. Fall Risk None identified. Assessment: 20:00 General: Appears in no apparent distress. comfortable, Behavior is calm, cooperative, jb4 appropriate for age. Pain: Denies pain. Neuro: Level of Consciousness is awake, alert, obeys commands, Oriented to person, place, time, situation, Reports Auditory Hallucinations. Cardiovascular: Patient's skin is warm and dry. Respiratory: Airway is patent Respiratory effort is even, unlabored, Respiratory pattern is regular, symmetrical. GI: No signs and/or symptoms were reported involving the gastrointestinal system. : No signs and/or symptoms were reported regarding the genitourinary system. EENT: No signs and/or symptoms were reported regarding the EENT system. Derm: Skin is intact, Skin is pink, warm \\T\\ dry. Musculoskeletal: Circulation, motion, and sensation intact. Range of motion: intact in all extremities. 21:13 Reassessment: Patient appears in no apparent distress at this time. Patient and/or jb4 family updated on plan of care and expected duration. Pain level reassessed. Patient is alert, oriented x 3, equal unlabored respirations, skin warm/dry/pink. 21:21 Reassessment: Patient appears in no apparent distress at this time. Patient and/or jb4 family updated on plan of care and expected duration. Pain level reassessed. Patient is alert, oriented x 3, equal unlabored respirations, skin warm/dry/pink. PT verbalized understanding of d/c and follow up instructions. Ambulated out of ED with steady gait. Vital Signs: 19:40 BP 130 / 87; Pulse 84; Resp 16 S; Temp 97.6(TE); Pulse Ox 97% on R/A; Weight 68.04 kg jd3 (R); Height 5 ft. 11 in. (180.34 cm) (R); Pain 0/10; 21:21 BP 123 / 83; Pulse 61; Resp 16; Pulse Ox 100% on R/A; jb4 19:40 Body Mass Index 20.92 (68.04 kg, 180.34 cm) jd3 ED Course: 19:33 Patient arrived in ED. cf2 19:37 Gregorio Choudhary MD is Attending Physician. tw4 19:39 Triage completed. jd3 19:41 Arm band placed on. jd3 19:47 Matt Rocha, RN is Primary Nurse. jb4 20:00 Patient has correct armband on for positive identification. Bed in low position. Call jb4 light in reach. Side rails up X 1. 20:00 Inserted saline lock: 20 gauge in right forearm, using aseptic technique. Blood jb4 collected. 21:21 No provider procedures requiring assistance completed. IV discontinued, intact, jb4 bleeding controlled, No redness/swelling at site. Pressure dressing applied. Administered Medications: 21:15 Not Given (Other Intervention Used): Depakene 250 mg PO once jb4 21:15 Drug: Ativan 0.5 mg Route: PO; jb4 21:22 Follow up: Response: No adverse reaction jb4 21:15 Drug: Depakote 250 mg Route: PO; jb4 21:22 Follow up: Response: No adverse reaction jb4 Outcome: 21:00 Discharge ordered by . tw4 21:21 Discharged to home ambulatory. jb4 21:21 Condition: stable 21:21 Discharge instructions given to patient, Instructed on discharge instructions, follow up and referral plans. medication usage, Demonstrated understanding of instructions, follow-up care, medications, Prescriptions given X 1. 21:23 Patient left the ED. jb4 Signatures: Matt Rocha RN RN jb4 Akil Lamas RN RN jd3 Wadley, Terrence, MD MD tw4 Brenda Willett cf2 Corrections: (The following items were deleted from the chart) 19:42 19:37 Chief complaint: Patient states: "I am having panic attacks and hearing voices. jd3 this is almost an everyday thing, but I don't have insurance for me to get the medications that I have prescribed to me." jd3
[2020-03-04] MEDS ORDERED: LORAZEPAM 0.5 MG TABLET ONE (21:18)
[2020-03-04] MEDS ORDERED: DIVALPROEX DR 250 MG TAB PO ONE (21:21)
[2020-03-04 21:30] VITALS: TEMP 97.6
[2020-03-04 21:31] VITALS: BP 123/83; O2SAT 100
== END 2020-03-04 21:23 | disposition home or self-care (01) ==
LOC: ER 19:31
DX: F41.9 Anxiety disorder, unspecified (principal); I10 Essential (primary) hypertension; F17.210 Nicotine dependence, cigarettes, uncomplicated
CPT/HCPCS: 36415; 80048; 80076; 80307; 80320; 80329; 81003; 85025; 85610; 85730; 99284

== ENCOUNTER 2020-05-19 06:29 | Emergency (ER) | payer SELFPAY ==
--- OUTSIDE RECORDS SUMMARY | 2020-05-19 06:31 | XMS REPORT | Continuity of Care Document ---
:1980 Author Organization [facility] t Address [address] [place] [address] Care Team Providers Name Role Phone Singer [...] Facility Department ID 2019-11-19 2019-11-19 Emergency Singer [facility] [id number] 13:21:25 14:37:00 Tono Castaneda [id number] [place] [id number] [place] [id number] Results This patient has no known results.
--- NOTE | 2020-05-19 07:30 | ER ---
Nurse's Notes [facility] Name: Hermann Blackburn Age: 39 yrs Sex: Male : 1980 Arrival Date: 05/19/2020 Time: 06:32 Bed 5 Private MD: Diagnosis: Anxiety disorder, unspecified Presentation: 05/19 06:42 Chief complaint: Patient states: I AM HEARING VOICES, IT HAPPENED BETWEEN 2-3AM LAST rv NIGHT. THEY ARE THREATENING ME. I TAKE ATIVAN FOR IT, BUT SINCE I MOVED FROM [place], DON'T HAVE MY INSURANCE, I COULD NOT GET A PRESCRIPTION. PATIENT DENIES THREAT TO SELF OR OTHERS. Coronavirus screen: Client denies travel out of the [place] in the last 14 days. Ebola Screen: No symptoms or risks identified at this time. Initial Sepsis Screen: Does the patient meet any 2 criteria? No. Patient's initial sepsis screen is negative. Does the patient have a suspected source of infection? No. Patient's initial sepsis screen is negative. Risk Assessment: Do you want to hurt yourself or someone else? Patient reports no desire to harm self or others. Onset of symptoms was May 19, 2020 at 02:00. 06:42 Method Of Arrival: Ambulatory rv 06:42 Acuity: MEGHNA 3 rv Triage Assessment: 06:45 General: Appears comfortable, Behavior is calm, cooperative. Pain: Denies pain. EENT: rv No signs and/or symptoms were reported regarding the EENT system. Neuro: Level of Consciousness is awake, alert, obeys commands, Oriented to person, place, time, situation. Cardiovascular: Patient's skin is warm and dry. Respiratory: Airway is patent Respiratory effort is even, unlabored, Breath sounds are clear bilaterally. Derm: Skin is intact. Historical: - Allergies: 06:45 No Known Allergies; rv - PMHx: 06:45 Anxiety; Depression; Hypertension; PTSD; rv - PSHx: 06:45 None; rv - Immunization history:: Adult Immunizations up to date. - Social history:: Smoking status: Patient reports the use of cigarette tobacco products, smokes one pack cigarettes per day. Patient/guardian denies using alcohol, street drugs, The patient lives with family. - Family history:: not pertinent. Screenin:46 Abuse screen: Denies threats or abuse. Denies injuries from another. Nutritional rv screening: No deficits noted. Tuberculosis screening: No symptoms or risk factors identified. Fall Risk None identified. Assessment: 07:20 General: Appears in no apparent distress. uncomfortable, Behavior is calm, cooperative. jl7 Pain: Denies pain. Neuro: Level of Consciousness is awake, alert, obeys commands, Oriented to person, place, time, situation, Moves all extremities. Full function Gait is steady, Speech is normal. Cardiovascular: Denies chest pain, Patient's skin is warm and dry. Respiratory: Airway is patent Respiratory effort is even, unlabored, Respiratory pattern is regular, symmetrical, Denies shortness of breath. Derm: Skin is pink, warm \T\ dry. Vital Signs: 06:42 BP 128 / 87; Pulse 65; Resp 16; Temp 98; Pulse Ox 98% ; Weight 70.31 kg; Height 5 ft. rv 11 in. (180.34 cm); Pain 0/10; 06:42 Body Mass Index 21.62 (70.31 kg, 180.34 cm) rv ED Course: 06:32 Patient arrived in ED. cl3 06:45 Triage completed. rv 06:45 Arm band placed on right wrist. Patient placed in the treatment room, on a stretcher, rv Patient notified of wait time. 06:46 Patient has correct armband on for positive identification. Call light in reach. Side rv rails up X 1. Side rails up X2. Pulse ox on. NIBP on. 07:21 Jerome Cronin RN is Primary Nurse. jl7 07:26 Sanket Alvarez MD is Attending Physician. ma2 07:36 No provider procedures requiring assistance completed. Patient did not have IV access jl7 during this emergency room visit. Administered Medications: 07:30 Drug: Ativan 1 mg Route: PO; jl7 07:37 Follow up: Response: Medication administered at discharge. jl7 Outcome: 07:30 Discharge ordered by . ma2 07:36 Discharged to home ambulatory. jl7 07:36 Condition: stable 07:36 Discharge instructions given to patient, Instructed on discharge instructions, follow up and referral plans. medication usage, Demonstrated understanding of instructions, follow-up care, medications, Prescriptions given X 1. 07:37 Patient left the ED. jl7 Signatures: Jerome Cronin RN RN jl7 Sanket Alvarez MD MD ma2 Jet Leija RN RN rv Tiffany Spear cl3
--- NOTE | 2020-05-19 07:31 | EDPHYS ---
Physician Documentation [facility] Name: Hermann Blackburn Age: 39 yrs Sex: Male : 1980 Arrival Date: 05/19/2020 Time: 06:32 Bed 5 Private MD: ED Physician Sanket Alvarez HPI: 05/19 07:27 This 39 yrs old Male presents to ER via Ambulatory with complaints of ma2 Anxiety, Hearing Voices. 07:27 The patient presents to the emergency department with anxiety. Onset: The ma2 symptoms/episode began/occurred gradually, 2 day(s) ago. Severity of symptoms: At their worst the symptoms were mild in the emergency department the symptoms are unchanged. The patient has not experienced similar symptoms in the past. Historical: - Allergies: 06:45 No Known Allergies; rv - PMHx: 06:45 Anxiety; Depression; Hypertension; PTSD; rv - PSHx: 06:45 None; rv - Immunization history:: Adult Immunizations up to date. - Social history:: Smoking status: Patient reports the use of cigarette tobacco products, smokes one pack cigarettes per day. Patient/guardian denies using alcohol, street drugs, The patient lives with family. - Family history:: not pertinent. ROS: 07:27 Constitutional: Negative for fever, chills, and weight loss. ma2 07:27 All other systems are negative. Exam: 07:27 Constitutional: This is a well developed, well nourished patient who is awake, alert, ma2 and in no acute distress. Chest/axilla: Normal chest wall appearance and motion. Nontender with no deformity. No lesions are appreciated. Cardiovascular: Regular rate and rhythm with a normal S1 and S2. No gallops, murmurs, or rubs. Normal PMI, no JVD. No pulse deficits. Respiratory: Lungs have equal breath sounds bilaterally, clear to auscultation and percussion. No rales, rhonchi or wheezes noted. No increased work of breathing, no retractions or nasal flaring. Abdomen/GI: Soft, non-tender, with normal bowel sounds. No distension or tympany. No guarding or rebound. No evidence of tenderness throughout. Back: No spinal tenderness. No costovertebral tenderness. Full range of motion. Skin: Warm, dry with normal turgor. Normal color with no rashes, no lesions, and no evidence of cellulitis. MS/ Extremity: Pulses equal, no cyanosis. Neurovascular intact. Full, normal range of motion. Neuro: Awake and alert, GCS 15, oriented to person, place, time, and situation. Cranial nerves II-XII grossly intact. Motor strength 5/5 in all extremities. Sensory grossly intact. Cerebellar exam normal. Normal gait. Psych: Awake, alert, with orientation to person, place and time. Behavior, and affect are within normal limits. he is anxius no si or hi or avh Vital Signs: 06:42 BP 128 / 87; Pulse 65; Resp 16; Temp 98; Pulse Ox 98% ; Weight 70.31 kg; Height 5 ft. rv 11 in. (180.34 cm); Pain 0/10; 06:42 Body Mass Index 21.62 (70.31 kg, 180.34 cm) rv MDM: 07:26 Patient medically screened. ma2 07:27 Differential diagnosis: acute psychotic break, depression, psychosis secondary to ma2 non-compliance. Data reviewed: vital signs, nurses notes. Counseling: I had a detailed discussion with the patient and/or guardian regarding: the historical points, exam findings, and any diagnostic results supporting the discharge/admit diagnosis, the presence of at least one elevated blood pressure reading (>120/80) during this emergency department visit, the need for outpatient follow up. Response to treatment: the patient's symptoms have markedly improved after treatment. Administered Medications: 07:30 Drug: Ativan 1 mg Route: PO; [facility] 07:37 Follow up: Response: Medication administered at discharge. jl7 Disposition: 05/19/20 07:30 Discharged to Home. Impression: Anxiety disorder, unspecified. - Condition is Stable. - Discharge Instructions: Generalized Anxiety Disorder. - Prescriptions for Ativan 0.5 mg Oral Tablet - take 1 tablet by ORAL route every 8 hours As needed; 20 tablet. - Medication Reconciliation Form, Thank You Letter, Antibiotic Education, Prescription Opioid Use form. - Follow up: Private Physician; When: Tomorrow; Reason: Continuance of care. Signatures: Jerome Cronin RN RN jl7 Sanket Alvarez MD MD il2 Jet Leija RN RN rv Corrections: (The following items were deleted from the chart) 07:37 07:30 05/19/2020 07:30 Discharged to Home. Impression: Anxiety disorder, unspecified. jl7 Condition is Stable. Forms are Medication Reconciliation Form, Thank You Letter, Antibiotic Education, Prescription Opioid Use. Follow up: Private Physician; When: Tomorrow; Reason: Continuance of care. ma2
[2020-05-19] MEDS ORDERED: LORAZEPAM 1 MG TABLET ONE (07:43)
[2020-05-19 07:44] VITALS: BP 128/87; TEMP 98; O2SAT 98
== END 2020-05-19 07:37 | disposition home or self-care (01) ==
LOC: ER 06:29
DX: F41.8 Other specified anxiety disorders (principal); I10 Essential (primary) hypertension; F17.210 Nicotine dependence, cigarettes, uncomplicated
CPT/HCPCS: 99283

== ENCOUNTER 2020-06-06 19:13 | Emergency (ER) | payer SELFPAY ==
--- OUTSIDE RECORDS SUMMARY | 2020-06-06 19:15 | XMS REPORT | Continuity of Care Document ---
:1980 Author Organization [facility] t Address [address] [place] [address] Care Team Providers Name Role Phone Singer [...] Facility Department ID 2019-11-19 2019-11-19 Emergency Singer [facility] [id number] 13:21:25 14:37:00 Tono Castaneda [id number] [place] [id number] [place] [id number] Results This patient has no known results.
--- NOTE | 2020-06-06 20:27 | ER ---
Nurse's Notes [facility] Name: Hermann Blackburn Age: 39 yrs Sex: Male : 1980 Arrival Date: 06/06/2020 Time: 19:15 Bed 7 Private MD: Diagnosis: Anxiety disorder, unspecified Presentation: 06/06 19:24 Chief complaint: Patient states: Really bad anxiety attacks, I couldn't sleep last ca1 night. Hallucinations and delusions, way different than any normal day. it just so weird. I ran out of my meds about a week ago. Coronavirus screen: Client denies travel out of the [place] in the last 14 days. At this time, the client does not indicate any symptoms associated with coronavirus-19. Ebola Screen: Patient negative for fever greater than or equal to 101.5 degrees Fahrenheit, and additional compatible Ebola Virus Disease symptoms Patient denies exposure to infectious person. Patient denies travel to an Ebola-affected area in the 21 days before illness onset. No symptoms or risks identified at this time. Initial Sepsis Screen: Does the patient meet any 2 criteria? No. Patient's initial sepsis screen is negative. Does the patient have a suspected source of infection? No. Patient's initial sepsis screen is negative. Risk Assessment: Do you want to hurt yourself or someone else? Patient reports no desire to harm self or others. Onset of symptoms was June 06, 2020. 19:24 Method Of Arrival: Ambulatory ca1 19:24 Acuity: MEGHNA 4 ca1 Historical: - Allergies: 19:27 No Known Allergies; ca1 - PMHx: 19:27 Anxiety; Depression; Hypertension; PTSD; ca1 - PSHx: 19:27 None; ca1 - Immunization history:: Adult Immunizations up to date, Flu vaccine is up to date. - Social history:: Smoking status: Patient reports the use of cigarette tobacco products, smokes one pack cigarettes per day. Patient/guardian denies using alcohol, street drugs. Screenin:10 Abuse screen: Denies threats or abuse. Denies injuries from another. Nutritional ca1 screening: No deficits noted. Tuberculosis screening: No symptoms or risk factors identified. Fall Risk None identified. Assessment: 20:10 General: Appears in no apparent distress. comfortable, Behavior is calm, cooperative, ca1 appropriate for age. Pain: Denies pain. Neuro: Level of Consciousness is awake, alert, obeys commands, Oriented to person, place, time, situation. Derm: Skin is intact, is healthy with good turgor, Skin is pink, warm \T\ dry. Musculoskeletal: Circulation, motion, and sensation intact. Capillary refill < 3 seconds. Vital Signs: 19:24 BP 120 / 77; Pulse 79; Resp 16 S; Temp 97.8(TE); Pulse Ox 100% on R/A; Weight 70.31 kg ca1 (R); Height 5 ft. 11 in. (180.34 cm) (R); Pain 0/10; 20:10 BP 110 / 71; Pulse 81; Resp 16 S; Pulse Ox 100% on R/A; ca1 19:24 Body Mass Index 21.62 (70.31 kg, 180.34 cm) ca1 ED Course: 19:15 Patient arrived in ED. mr 19:26 Triage completed. ca1 19:27 Arm band placed on right wrist. ca1 20:05 Kendrick Washington NP is PHCP. pm1 20:05 Kirk Watson MD is Attending Physician. pm1 20:10 Patient has correct armband on for positive identification. Bed in low position. Call ca1 light in reach. Side rails up X 1. Pulse ox on. NIBP on. 20:33 Marifer Benitez RN is Primary Nurse. ca1 20:37 No provider procedures requiring assistance completed. Patient did not have IV access ca1 during this emergency room visit. Administered Medications: 20:35 Drug: Ativan 0.5 mg Route: PO; ca1 Outcome: 20:27 Discharge ordered by . pm1 20:37 Discharged to home ambulatory. ca1 20:37 Condition: stable 20:37 Discharge instructions given to patient, Instructed on discharge instructions, follow up and referral plans. no drinking with medication, no driving heavy equipment, medication usage, Demonstrated understanding of instructions, follow-up care, medications, Prescriptions given X 1. 20:39 Patient left the ED. ca1 Signatures: Karl Radha adams Kendrick Washington, FILER HELPER FILER HELPER pm1 Marifer Benitez RN RN ca1
--- NOTE | 2020-06-06 20:27 | EDPHYS ---
Physician Documentation [facility] Name: Hermann Blackburn Age: 39 yrs Sex: Male : 1980 Arrival Date: 06/06/2020 Time: 19:15 Bed 7 Private MD: ED Physician Kirk Watson HPI: 06/06 20:26 This 39 yrs old Male presents to ER via Ambulatory with complaints of Anxiety.pm1 20:26 The patient presents to the emergency department requesting refill(s) for: Ativan. The pm1 patient chronically suffers from Anxiety, Depression, PTSD. The patient has not recently seen a physician, and does not have an established primary care provider. Patient here for refill of Ativan for anxiety. Reports having hallucinations and delusions when his anxiety gets this bad. Historical: - Allergies: 19:27 No Known Allergies; ca1 - PMHx: 19:27 Anxiety; Depression; Hypertension; PTSD; ca1 - PSHx: 19:27 None; ca1 - Immunization history:: Adult Immunizations up to date, Flu vaccine is up to date. - Social history:: Smoking status: Patient reports the use of cigarette tobacco products, smokes one pack cigarettes per day. Patient/guardian denies using alcohol, street drugs. ROS: 20:26 Constitutional: Negative for fever, chills, and weight loss, Cardiovascular: Negative pm1 for chest pain, palpitations, and edema, Respiratory: Negative for shortness of breath, cough, wheezing, and pleuritic chest pain, Abdomen/GI: Negative for abdominal pain, nausea, vomiting, diarrhea, and constipation. 20:26 MS/Extremity: Negative for injury and deformity, Skin: Negative for injury, rash, and discoloration. 20:26 Psych: Positive for anxiety, Negative for homicidal ideation, suicide gesture, suicidal ideation. Exam: 20:26 Constitutional: This is a well developed, well nourished patient who is awake, alert, pm1 and in no acute distress. Head/Face: Normocephalic, atraumatic. 20:26 Back: No spinal tenderness. No costovertebral tenderness. Full range of motion. Skin: Warm, dry with normal turgor. Normal color with no rashes, no lesions, and no evidence of cellulitis. MS/ Extremity: Pulses equal, no cyanosis. Neurovascular intact. Full, normal range of motion. 20:26 Cardiovascular: Exam negative for acute changes, Rate: normal, Rhythm: regular, Pulses: no pulse deficits are appreciated. 20:26 Respiratory: Exam negative for acute changes, respiratory distress, shortness of breath. 20:26 Neuro: Exam negative for acute changes, Orientation: is normal, Mentation: is normal, Motor: is normal, moves all fours, Gait: is steady, at a normal pace, without difficulty. Vital Signs: 19:24 BP 120 / 77; Pulse 79; Resp 16 S; Temp 97.8(TE); Pulse Ox 100% on R/A; Weight 70.31 kg ca1 (R); Height 5 ft. 11 in. (180.34 cm) (R); Pain 0/10; 20:10 BP 110 / 71; Pulse 81; Resp 16 S; Pulse Ox 100% on R/A; ca1 19:24 Body Mass Index 21.62 (70.31 kg, 180.34 cm) ca1 MDM: 20:22 Patient medically screened. pm1 20:26 Data reviewed: vital signs. Data interpreted: Pulse oximetry: on room air is 100 %. pm1 Interpretation: normal. Counseling: I had a detailed discussion with the patient and/or guardian regarding: the historical points, exam findings, and any diagnostic results supporting the discharge/admit diagnosis, the need for outpatient follow up, for definitive care, a family practitioner, a psychiatrist, to return to the emergency department if symptoms worsen or persist or if there are any questions or concerns that arise at home. 20:26 ED course: [place] reviewed. pm1 Administered Medications: 20:35 Drug: Ativan 0.5 mg Route: PO; ca1 Disposition: 20:51 Co-signature as Attending Physician, Kirk Watson MD. rn Disposition: 06/06/20 20:27 Discharged to Home. Impression: Anxiety disorder, unspecified. - Condition is Stable. - Discharge Instructions: Panic Attacks, Generalized Anxiety Disorder. - Prescriptions for Ativan 0.5 mg Oral Tablet - take 1 tablet by ORAL route every 8 hours As needed; 12 tablet. - Medication Reconciliation Form, Thank You Letter, Antibiotic Education, Prescription Opioid Use form. - Follow up: Emergency Department; When: As needed; Reason: Worsening of condition. Follow up: Private Physician; When: 2 - 3 days; Reason: Recheck today's complaints, Continuance of care, Re-evaluation by your physician. - Problem is new. - Symptoms are unchanged. Signatures: Kirk Watson MD MD rn Marinas, Patrick, CHANGE CONTROL MANAGER CHANGE CONTROL MANAGER pm1 Marifer Benitez RN RN ca1 Corrections: (The following items were deleted from the chart) 20:39 20:27 06/06/2020 20:27 Discharged to Home. Impression: Anxiety disorder, unspecified. ca1 Condition is Stable. Forms are Medication Reconciliation Form, Thank You Letter, Antibiotic Education, Prescription Opioid Use. Follow up: Emergency Department; When: As needed; Reason: Worsening of condition. Follow up: Private Physician; When: 2 - 3 days; Reason: Recheck today's complaints, Continuance of care, Re-evaluation by your physician. Problem is new. Symptoms are unchanged. pm1
[2020-06-06] MEDS ORDERED: LORAZEPAM 0.5 MG TABLET ONE (20:48)
[2020-06-09 12:15] VITALS: TEMP 97.8; O2SAT 100
[2020-06-09 12:16] VITALS: BP 110/71
== END 2020-06-06 20:39 | disposition home or self-care (01) ==
LOC: ER 19:13
DX: F41.9 Anxiety disorder, unspecified (principal); F32.9 Major depressive disorder, single episode, unspecified; I10 Essential (primary) hypertension; F17.210 Nicotine dependence, cigarettes, uncomplicated
CPT/HCPCS: 99283

== ENCOUNTER 2020-08-21 20:24 | Emergency (ER) | payer SELFPAY ==
--- OUTSIDE RECORDS SUMMARY | 2020-08-21 20:27 | XMS REPORT | Continuity of Care Document ---
:1980 Author Organization [facility] t Address [address] [place] [id number] Care Team Providers Name Role Phone Singer [...] Department ID 2019-11-19 2019-11-19 Emergency Singer [facility] [id number] 13:21:25 14:37:00 Tono Castaneda [id number] [place] [id number] [place] [id number] Results This patient has no known results.
--- NOTE | 2020-08-21 21:37 | EDPHYS ---
Physician Documentation [facility] Name: Hermann Blackburn Age: 39 yrs Sex: Male : 1980 Arrival Date: 08/21/2020 Time: 20:25 Bed 23 Private MD: ED Physician Kenneth Meade HPI: 08/21 21:30 This 39 yrs old Male presents to ER via Ambulatory with complaints of Panic mh7 Attack. 21:30 The patient presents to the emergency department with anxiety, over unknown mh7 circumstances. Onset: The symptoms/episode began/occurred 1 week(s) ago. Past psychiatric history: Prior diagnosis: depression, Anxiety, Psychiatric medications include: Ativan, Primary psychiatric physician: the patient does not have a primary psychiatric physician, the patient has not had a prior suicide gesture, the patient does not have a previous inpatient psychiatric history, the patient's last psychiatric treatment was 1 year(s) ago. Associated signs and symptoms: Pertinent positives; anxiety, hallucinations, auditory without any directions to do anything, Pertinent negatives: abdominal pain, chest pain, chills, delusions, depression, fever, headache, homicidal ideation, nausea, night sweats, palpitations, paranoia, shortness of breath, substance abuse, suicide ideation, tremor, vomiting. Severity of symptoms: At their worst the symptoms were moderate 5 day(s) ago, in the emergency department the symptoms are unchanged. The patient has experienced similar episodes in the past, chronically. Historical: - Allergies: 20:32 No Known Allergies; mg2 - Home Meds: 20:32 None [Active]; mg2 - PMHx: 20:32 Anxiety; Depression; PTSD; Hypertension; mg2 - PSHx: 20:32 None; mg2 - Immunization history:: Flu vaccine is not up to date. - Social history:: Smoking status: Patient reports the use of cigarette tobacco products, smokes one pack cigarettes per day. Patient/guardian denies using alcohol, street drugs, IV drugs. ROS: 21:30 Constitutional: Negative for fever, chills, and weight loss, Eyes: Negative for injury, mh7 pain, redness, and discharge, ENT: Negative for injury, pain, and discharge, Neck: Negative for injury, pain, and swelling, Cardiovascular: Negative for chest pain, palpitations, and edema, Respiratory: Negative for shortness of breath, cough, wheezing, and pleuritic chest pain, Abdomen/GI: Negative for abdominal pain, nausea, vomiting, diarrhea, and constipation, Back: Negative for injury and pain, : Negative for injury, bleeding, discharge, and swelling, MS/Extremity: Negative for injury and deformity, Skin: Negative for injury, rash, and discoloration, Neuro: Negative for headache, weakness, numbness, tingling, and seizure, Allergy/Immunology: Negative for hives, rash, and allergies, Endocrine: Negative for neck swelling, polydipsia, polyuria, polyphagia, and marked weight changes, Hematologic/Lymphatic: Negative for swollen nodes, abnormal bleeding, and unusual bruising. Exam: 21:30 Head/Face: Normocephalic, atraumatic. Eyes: Pupils equal round and reactive to light, mh7 extra-ocular motions intact. Lids and lashes normal. Conjunctiva and sclera are non-icteric and not injected. Cornea within normal limits. Periorbital areas with no swelling, redness, or edema. Neck: Trachea midline, no thyromegaly or masses palpated, and no cervical lymphadenopathy. Supple, full range of motion without nuchal rigidity, or vertebral point tenderness. No Meningismus. Chest/axilla: Normal chest wall appearance and motion. Nontender with no deformity. No lesions are appreciated. Cardiovascular: Regular rate and rhythm with a normal S1 and S2. No gallops, murmurs, or rubs. Normal PMI, no JVD. No pulse deficits. Respiratory: Lungs have equal breath sounds bilaterally, clear to auscultation and percussion. No rales, rhonchi or wheezes noted. No increased work of breathing, no retractions or nasal flaring. Abdomen/GI: Soft, non-tender, with normal bowel sounds. No distension or tympany. No guarding or rebound. No evidence of tenderness throughout. Back: No spinal tenderness. No costovertebral tenderness. Full range of motion. Skin: Warm, dry with normal turgor. Normal color with no rashes, no lesions, and no evidence of cellulitis. MS/ Extremity: Pulses equal, no cyanosis. Neurovascular intact. Full, normal range of motion. Neuro: Awake and alert, GCS 15, oriented to person, place, time, and situation. Cranial nerves II-XII grossly intact. Motor strength 5/5 in all extremities. Sensory grossly intact. Cerebellar exam normal. Normal gait. 21:30 Constitutional: The patient appears in no acute distress, alert, awake, anxious. 08/22 03:08 Psych: Behavior/mood is pleasant, cooperative, anxious, Affect is calm, Oriented to [facility] person, place, time, Patient has no thoughts/intents to harm self or others. Judgement / Insight is normal. Memory is normal. Delusions/hallucinations are not present. Vital Signs: 08/21 20:30 BP 135 / 90; Pulse 80; Resp 18; Temp 98.2; Pulse Ox 98% on R/A; Weight 65.77 kg; Height mg2 5 ft. 11 in. (180.34 cm); 21:15 BP 114 / 99; Pulse 70; Resp 20; Pulse Ox 99% on R/A; vg1 20:30 Body Mass Index 20.22 (65.77 kg, 180.34 cm) mg2 MDM: 21:36 Patient medically screened. [facility] 08/22 03:08 Differential diagnosis: depression, psychosis secondary to non-compliance, Anxiety, 7 Panic attack. Data reviewed: vital signs, nurses notes, old medical records. Data interpreted: Pulse oximetry: on room air is 99 %. Interpretation: normal. Counseling: I had a detailed discussion with the patient and/or guardian regarding: the historical points, exam findings, and any diagnostic results supporting the discharge/admit diagnosis, the need for outpatient follow up, to return to the emergency department if symptoms worsen or persist or if there are any questions or concerns that arise at home. Response to treatment: the patient's symptoms have resolved after treatment, the patient's blood pressure is in an acceptable range, mental status has returned to baseline, the patient no longer shows bradycardia, the patient is not short of breath, the patient is not tachycardic, the patient's pain is gone, the patient's temperature has normalized. Administered Medications: 08/21 21:29 Drug: Ativan 0.5 mg Route: PO; vg1 21:41 Follow up: Response: Medication administered at discharge. vg1 Disposition: 08/21/20 21:36 Discharged to Home. Impression: Anxiety. - Condition is Stable. - Discharge Instructions: Generalized Anxiety Disorder. - Medication Reconciliation Form, Thank You Letter, Antibiotic Education, Prescription Opioid Use form. - Follow up: Emergency Department; When: 1 - 2 days; Reason: Worsening of condition, Recheck today's complaints, Continuance of care, Re-evaluation by your physician. - Problem is chronic. - Symptoms have improved. Signatures: Ulices Krishnan RN RN mg2 Sandra Asher RN RN vg1 Kenneth Meade MD MD mh7 Corrections: (The following items were deleted from the chart) 21:41 21:36 08/21/2020 21:36 Discharged to Home. Impression: Anxiety. Condition is Stable. vg1 Forms are Medication Reconciliation Form, Thank You Letter, Antibiotic Education, Prescription Opioid Use. Follow up: Emergency Department; When: 1 - 2 days; Reason: Worsening of condition, Recheck today's complaints, Continuance of care, Re-evaluation by your physician. Problem is chronic. Symptoms have improved. mh7
--- NOTE | 2020-08-21 21:37 | ER ---
Nurse's Notes [facility] Name: Hermann Blackburn Age: 39 yrs Sex: Male : 1980 Arrival Date: 08/21/2020 Time: 20:25 Bed 23 Private MD: Diagnosis: Anxiety Presentation: 08/21 20:30 Chief complaint: Patient states: jorge luis been having panic attack, hearing voices, but im mg2 not suicidal. Coronavirus screen: Client denies travel out of the [place] in the last 14 days. Ebola Screen: No symptoms or risks identified at this time. Initial Sepsis Screen: Does the patient meet any 2 criteria? No. Patient's initial sepsis screen is negative. Does the patient have a suspected source of infection? No. Patient's initial sepsis screen is negative. Risk Assessment: Do you want to hurt yourself or someone else? Patient reports no desire to harm self or others. Onset of symptoms was July 2020. 20:30 Method Of Arrival: Ambulatory mg2 20:30 Acuity: MEGHNA 3 mg2 Triage Assessment: 20:32 General: Appears in no apparent distress. comfortable, Behavior is cooperative. mg2 Historical: - Allergies: 20:32 No Known Allergies; mg2 - Home Meds: 20:32 None [Active]; mg2 - PMHx: 20:32 Anxiety; Depression; PTSD; Hypertension; mg2 - PSHx: 20:32 None; mg2 - Immunization history:: Flu vaccine is not up to date. - Social history:: Smoking status: Patient reports the use of cigarette tobacco products, smokes one pack cigarettes per day. Patient/guardian denies using alcohol, street drugs, IV drugs. Screenin:15 Abuse screen: Denies threats or abuse. Nutritional screening: No deficits noted. vg1 Tuberculosis screening: No symptoms or risk factors identified. Fall Risk No fall in past 12 months (0 pts). No secondary diagnosis (0 pts). No IV (0 pts). Ambulatory Aid- None/Bed Rest/Nurse Assist (0 pts). Gait- Normal/Bed Rest/Wheelchair (0 pts) Mental Status- Oriented to own ability (0 pts). Total Herrera Fall Scale indicates No Risk (0-24 pts). Assessment: 21:14 General: Appears in no apparent distress. uncomfortable, Behavior is cooperative, vg1 anxious. Pain: Denies pain. Neuro: Level of Consciousness is awake, alert, obeys commands, Oriented to person, place, time. Cardiovascular: Patient's skin is warm and dry. Respiratory: Airway is patent Respiratory effort is even, unlabored, Respiratory pattern is regular, symmetrical. Derm: Skin is intact, is healthy with good turgor. Musculoskeletal: Circulation, motion, and sensation intact. 21:22 Reassessment: Received VO from Dr Meade to administer Ativan 0.5 mg PO x1. vg1 Vital Signs: 20:30 BP 135 / 90; Pulse 80; Resp 18; Temp 98.2; Pulse Ox 98% on R/A; Weight 65.77 kg; Height mg2 5 ft. 11 in. (180.34 cm); 21:15 BP 114 / 99; Pulse 70; Resp 20; Pulse Ox 99% on R/A; vg1 20:30 Body Mass Index 20.22 (65.77 kg, 180.34 cm) mg2 ED Course: 20:25 Patient arrived in ED. cl3 20:31 Triage completed. mg2 20:32 Arm band placed on. mg2 21:01 Kenneth Meade MD is Attending Physician. 7 21:10 Sandra Asher RN is Primary Nurse. vg1 21:16 Patient has correct armband on for positive identification. Bed in low position. Call vg1 light in reach. 21:40 No provider procedures requiring assistance completed. Patient did not have IV access vg1 during this emergency room visit. Administered Medications: 21:29 Drug: Ativan 0.5 mg Route: PO; vg1 21:41 Follow up: Response: Medication administered at discharge. vg1 Outcome: 21:36 Discharge ordered by . 7 21:40 Discharged to home ambulatory. vg1 21:40 Condition: good 21:40 Discharge instructions given to patient, Instructed on discharge instructions, follow up and referral plans. Demonstrated understanding of instructions, follow-up care. 21:41 Patient left the ED. vg1 Signatures: Ulices Krishnan RN [place] [facility] [place]iffany Spear cl3 Sandra Asher RN RN 1 Kenneth Meade MD MD [facility]
[2020-08-21] MEDS ORDERED: LORAZEPAM 0.5 MG TABLET ONE (21:43)
[2020-08-22 01:56] VITALS: TEMP 98.2
[2020-08-22 01:57] VITALS: BP 114/99; O2SAT 99
== END 2020-08-21 21:41 | disposition home or self-care (01) ==
LOC: ER 20:24
DX: F41.8 Other specified anxiety disorders (principal); I10 Essential (primary) hypertension; F17.210 Nicotine dependence, cigarettes, uncomplicated
CPT/HCPCS: 99283

== ENCOUNTER 2020-08-28 23:10 | Emergency (ER) | payer SELFPAY ==
--- OUTSIDE RECORDS SUMMARY | 2020-08-28 23:15 | XMS REPORT | Continuity of Care Document ---
:1980 Author Organization [facility] t Address [address] [place] [id number] Care Team Providers Name Role Phone Singer [...] Facility Department ID 2019-11-19 2019-11-19 Emergency Singer [facility] [id number] 13:21:25 14:37:00 Tono Castaneda [id number] [place] [id number] [place] [id number] Results This patient has no known results.
--- NOTE | 2020-08-28 23:54 | EDPHYS ---
Physician Documentation [facility] Name: Hermann Blackburn Age: 39 yrs Sex: Male : 1980 Arrival Date: 08/28/2020 Time: 23:19 Bed 6 Private MD: ED Physician Kenneth Meade HPI: 08/29 00:15 This 39 yrs old Male presents to ER via Ambulatory with complaints of kb Toothache. 00:15 The patient presents with pain, swelling. The problem is located in the lower right kb second bicuspid (#29). Onset: The symptoms/episode began/occurred 3 day(s) ago. Duration: The symptoms are continuous. Modifying factors: The symptoms are alleviated by nothing, the symptoms are aggravated by nothing. Associated signs and symptoms: Pertinent positives: pain, redness in area, swelling. Severity of symptoms: At their worst the symptoms were severe, in the emergency department the symptoms are unchanged. The patient has not experienced similar symptoms in the past. The patient has not recently seen a physician. Historical: - Allergies: 08/28 23:29 No Known Allergies; rr5 - Home Meds: 23:29 None [Active]; rr5 - PMHx: 23:29 Hypertension; Anxiety; Depression; PTSD; rr5 - PSHx: 23:29 None; rr5 - Immunization history:: Adult Immunizations unknown. - Social history:: Smoking status: Patient reports the use of cigarette tobacco products, smokes one pack cigarettes per day. ROS: 08/29 00:10 Constitutional: Negative for fever, chills, and weight loss, Cardiovascular: Negative kb for chest pain, palpitations, and edema, Respiratory: Negative for shortness of breath, cough, wheezing, and pleuritic chest pain, Abdomen/GI: Negative for abdominal pain, nausea, vomiting, diarrhea, and constipation, MS/Extremity: Negative for injury and deformity, Skin: Negative for injury, rash, and discoloration, Neuro: Negative for headache, weakness, numbness, tingling, and seizure. ENT: Positive for dental pain. Exam: 00:10 Constitutional: This is a well developed, well nourished patient who is awake, alert, kb and in no acute distress. Head/Face: Normocephalic, atraumatic. Skin: Warm, dry with normal turgor. Normal color with no rashes, no lesions, and no evidence of cellulitis. MS/ Extremity: Pulses equal, no cyanosis. Neurovascular intact. Full, normal range of motion. Neuro: Awake and alert, GCS 15, oriented to person, place, time, and situation. Cranial nerves II-XII grossly intact. Moves all extremities. Sensory grossly intact. Cerebellar exam normal. Normal gait. 00:10 ENT: Dental exam: abscess, that is mild, specifically in the lower right second bicuspid, gum swelling, that is mild, specifically in the lower right second bicuspid (#29), pain, that is moderate, that is severe, specifically in the lower right second bicuspid (#29). 00:10 Respiratory: the patient does not display signs of respiratory distress, Respirations: normal. Vital Signs: 08/28 23:27 BP 121 / 70; Pulse 60; Resp 16; Temp 98; Pulse Ox 100% ; Weight 68.04 kg; Height 5 ft. rr5 11 in. (180.34 cm); Pain 8/10; 23:27 Body Mass Index 20.92 (68.04 kg, 180.34 cm) rr5 MDM: 23:32 Patient medically screened. kb 08/29 00:10 Data reviewed: vital signs, nurses notes. Data interpreted: Pulse oximetry: on room air kb is 100 %. Interpretation: normal. Counseling: I had a detailed discussion with the patient and/or guardian regarding: the historical points, exam findings, and any diagnostic results supporting the discharge/admit diagnosis, the need for outpatient follow up, a dentist, to return to the emergency department if symptoms worsen or persist or if there are any questions or concerns that arise at home. Administered Medications: 00:13 Drug: [place] 10 mg-325 mg 1 tabs Route: PO; em 00:15 Follow up: Response: Medication administered at discharge. em 00:13 Drug: Augmentin 875 mg Route: PO; em 00:15 Follow up: Response: Medication held due to patient's status em Disposition: 05:54 Co-signature as Attending Physician, Kenneth Meade MD. [email or web address] Disposition: 08/28/20 23:53 Discharged to Home. Impression: Periapical abscess without sinus. - Condition is Stable. - Discharge Instructions: Dental Pain, [id number], Dental Abscess, [id number]. - Prescriptions for Augmentin 875- 125 mg Oral Tablet - take 1 tablet by ORAL route every 12 hours for 10 days; 20 tablet. Tramadol 50 mg Oral Tablet - take 1 tablet by ORAL route every 8 hours as needed; 12 tablet. - Medication Reconciliation Form, Thank You Letter, Antibiotic Education, Prescription Opioid Use form. - Follow up: Emergency Department; When: As needed; Reason: Worsening of condition. Follow up: Private Physician; When: 2 - 3 days; Reason: Recheck today's complaints, Continuance of care, Re-evaluation by your physician. Signatures: Jyothi Mills FNP-C ZACKARY-Ben Marion RN RN Brian Gautam RN RN rr5 Kenneth Meade MD MD 7 Corrections: (The following items were deleted from the chart) 00:15 08/28 23:53 08/28/2020 23:53 Discharged to Home. Impression: Periapical abscess without em sinus. Condition is Stable. Forms are Medication Reconciliation Form, Thank You Letter, Antibiotic Education, Prescription Opioid Use. Follow up: Emergency Department; When: As needed; Reason: Worsening of condition. Follow up: Private Physician; When: 2 - 3 days; Reason: Recheck today's complaints, Continuance of care, Re-evaluation by your physician. kb
--- NOTE | 2020-08-28 23:54 | ER ---
Nurse's Notes [facility] Name: Hermann Blackburn Age: 39 yrs Sex: Male : 1980 Arrival Date: 08/28/2020 Time: 23:19 Bed 6 Private MD: Diagnosis: Periapical abscess without sinus Presentation: 08/28 23:27 Chief complaint: Patient states: my tooth is hurting so bad started 2 days ago,took rr5 ibuprofen 30 before I got here. no fever. Coronavirus screen: Client denies travel out of the [place] in the last 14 days. At this time, the client does not indicate any symptoms associated with coronavirus-19. Ebola Screen: Patient negative for fever greater than or equal to 101.5 degrees Fahrenheit, and additional compatible Ebola Virus Disease symptoms Patient denies exposure to infectious person. Patient denies travel to an Ebola-affected area in the 21 days before illness onset. Initial Sepsis Screen: Does the patient meet any 2 criteria? No. Patient's initial sepsis screen is negative. Does the patient have a suspected source of infection? No. Patient's initial sepsis screen is negative. Risk Assessment: Do you want to hurt yourself or someone else? Patient reports no desire to harm self or others. Onset of symptoms was August 27, 2020. 23:27 Method Of Arrival: Ambulatory rr5 23:27 Acuity: MEGHNA 4 rr5 Triage Assessment: 23:34 General: Appears in no apparent distress. uncomfortable, Behavior is calm, cooperative, rr5 appropriate for age. Pain: Complains of pain in lower right second bicuspid. EENT: Reports pain in lower right second bicuspid Pain is 8 out of 10 on a pain scale. Historical: - Allergies: 23:29 No Known Allergies; rr5 - Home Meds: 23:29 None [Active]; rr5 - PMHx: 23:29 Hypertension; Anxiety; Depression; PTSD; rr5 - PSHx: 23:29 None; rr5 - Immunization history:: Adult Immunizations unknown. - Social history:: Smoking status: Patient reports the use of cigarette tobacco products, smokes one pack cigarettes per day. Screenin:33 Abuse screen: Denies threats or abuse. Denies injuries from another. Nutritional rr5 screening: No deficits noted. Tuberculosis screening: No symptoms or risk factors identified. Fall Risk None identified. Total Herrera Fall Scale indicates No Risk (0-24 pts). Vital Signs: 23:27 BP 121 / 70; Pulse 60; Resp 16; Temp 98; Pulse Ox 100% ; Weight 68.04 kg; Height 5 ft. rr5 11 in. (180.34 cm); Pain 8/10; 23:27 Body Mass Index 20.92 (68.04 kg, 180.34 cm) rr5 ED Course: 23:19 Patient arrived in ED. es 23:29 Triage completed. rr5 23:30 Arm band placed on right wrist. rr5 23:31 Jyothi Mills FNP-C is PHCP. kb 23:32 Kenneth Meade MD is Attending Physician. kb 23:33 Patient has correct armband on for positive identification. Bed in low position. Call rr5 light in reach. Pulse ox on. NIBP on. 23:57 Opal Pickens, RN is Primary Nurse. cayden 08/29 00:14 No provider procedures requiring assistance completed. Patient did not have IV access em during this emergency room visit. Administered Medications: 00:13 Drug: [place] 10 mg-325 mg 1 tabs Route: PO; em 00:15 Follow up: Response: Medication administered at discharge. em 00:13 Drug: Augmentin 875 mg Route: PO; em 00:15 Follow up: Response: Medication held due to patient's status em Outcome: 08/28 23:53 Discharge ordered by . tiesha 08/29 00:14 Discharged to home ambulatory. em Condition: good Discharge instructions given to patient, Instructed on discharge instructions, follow up and referral plans. no drinking with medication, no driving heavy equipment, medication usage, Demonstrated understanding of instructions, follow-up care, medications, Prescriptions given X 2. 00:15 Patient left the ED. em Signatures: Jyothi Mills FNP-C FNP-Yelena Collado Edgar, RN JEFF em Opal Pickens, Brian Rodriguez RN, ea RN RN rr5
[2020-08-29] MEDS ORDERED: AMOX/K CLAV 875 MG TAB ONE (00:27)
[2020-08-29] MEDS ORDERED: HYDROCODONE/APAP 10/325 TAB ONE (00:27)
[2020-08-29 01:18] VITALS: BP 121/70; TEMP 98; O2SAT 100
== END 2020-08-29 00:15 | disposition home or self-care (01) ==
LOC: ER 23:10
DX: K04.7 Periapical abscess without sinus (principal); I10 Essential (primary) hypertension; F17.210 Nicotine dependence, cigarettes, uncomplicated
CPT/HCPCS: 99283

== ENCOUNTER 2020-09-19 04:09 | Emergency (ER) | payer SELFPAY ==
--- OUTSIDE RECORDS SUMMARY | 2020-09-19 04:12 | XMS REPORT | Continuity of Care Document ---
:1980 Author Organization [facility] t Address [address] [place] [id number] Care Team Providers Name Role Phone Singer [...] Facility Department ID 2019-11-19 2019-11-19 Emergency Singer [facility] [phone] 13:21:25 14:37:00 Tono Castaneda [id number] [place] [id number] [place] [id number] Results This patient has no known results.
[2020-09-19 04:45] LABS: Basophils % 0.7 % (0-1.3); Hematocrit 42.7 % (39.6-49.0); Lymphocytes % 46.8 % (15.3-44.8); MPV 7.7 fL (7.6-11.3); RBC Red Blood Cell Count 4.85 M/uL (4.33-5.43)
[2020-09-19 04:53] LABS: Protime INR 0.96
[2020-09-19] MEDS ORDERED: NALOXONE 0.4 MG/ML VIAL ONE (04:57)
[2020-09-19 05:05] LABS: Barbiturates NEGATIVE (NEGATIVE); Benzodiazepines POSITIVE (NEGATIVE); Cocaine POSITIVE (NEGATIVE); METHAMPHETAM NEGATIVE (NEGATIVE); Methadone NEGATIVE (NEGATIVE); Opiates NEGATIVE (NEGATIVE); Phencyclidine NEGATIVE (NEGATIVE); THC Cannibis NEGATIVE (NEGATIVE)
[2020-09-19 05:14] LABS: ALT/SGPT 30 U/L (12-78); AST/SGOT 24 U/L (15-37); Albumin 3.5 g/dL (3.4-5.0); Alkaline Phosphatase 69 U/L (45-117); BUN Blood Urea Nitrogen 13 mg/dL (7-18); Bicarbonate 29 mmol/L (21-32); Bilirubin Direct < 0.1 mg/dL (0-0.2); Bilirubin Total 0.3 mg/dL (0.2-1.0); Glucose Level 90 mg/dL (74-106); Potassium 3.4 mmol/L (3.5-5.1); Sodium Level 141 mmol/L (136-145)
[2020-09-19] MEDS ORDERED: NA CHLORIDE 0.9% 1,000 ML ONE (05:37)
[2020-09-19 06:01] LABS: Creatine Phosphokinase 154 U/L (39-308); Troponin (Emerg Dept Use Only) < 0.02 ng/mL (0.0-0.045)
[2020-09-19 06:21] LABS: Urine Blood TRACE (Negative); Urine Glucose NEGATIVE (Negative); Urine Protein NEGATIVE (NEG); Urine pH 5.5 (5.0-7.0)
[2020-09-19] MEDS ORDERED: TETANUS & DIPHTHERIA TOX,ADULT 0.5 ML VIAL ONE (06:46)
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
[2020-09-19 11:33] VITALS: TEMP 97.5
[2020-09-19 11:38] VITALS: BP 100/67; O2SAT 96
--- NOTE | 2020-09-20 12:57 | EKG ---
Test Date: 2020-09-19 Test Time: 04:52:45 Financial Legal Assistant: MORTEZA MEASUREMENT RESULTS: Intervals: Rate: 69 CA: 140 QRSD: 82 QT: 398 QTc: 426 [place]: P: 83 CA: 140 QRS: 63 T: 68 INTERPRETIVE STATEMENTS: Normal sinus rhythm Possible Left atrial enlargement Early repolarization Borderline ECG Compared to ECG 02/17/2020 20:52:59 Early repolarization now present Left ventricular hypertrophy no longer present Electronically Signed On 09-20-20 12:53:01 CDT by Clement Mcclellan
== END 2020-09-19 11:11 | disposition home or self-care (01) ==
LOC: ER 04:09
DX: S02.2XXA Fracture of nasal bones, initial encounter for closed fracture (principal); Y00.XXXA Assault by blunt object, initial encounter; Y93.9 Activity, unspecified; Y92.89 Other specified places as the place of occurrence of the external cause; I10 Essential (primary) hypertension; F43.10 Post-traumatic stress disorder, unspecified
CPT/HCPCS: 36415; 70450; 70486; 71260; 72125; 74177; 76377; 80048; 80076; 80307; 80320; 80329; 81003; 82550; 82565; 84484; 85025; 85610; 85730; 86850; 86900; 86901; 90471; 90714; 93005; 96361; 96374; 99291; 99292; G0390; J2310; J7030; Q9967

== ENCOUNTER 2020-10-20 00:22 | Emergency (ER) | payer SELFPAY ==
--- OUTSIDE RECORDS SUMMARY | 2020-10-20 00:25 | XMS REPORT | Continuity of Care Document ---
:1980 Author Organization [facility] t Address [address] [place] [id number] Care Team Providers Name Role Phone Singer [...] Facility Department ID 2019-11-19 2019-11-19 Emergency [facility] [id number] 13:21:25 14:37:00 Tono Castaneda [id number] [place] [id number] [place] [phone] [id number] Results This patient has no known results.
--- NOTE | 2020-10-20 01:28 | EDPHYS ---
Physician Documentation [facility] Name: Hermann Blackburn Age: 39 yrs Sex: Male : 1980 Arrival Date: 10/20/2020 Time: 00:26 Bed Waiting Private MD: ED Physician Rikki Cho HPI: 10/20 01:25 This 39 yrs old Male presents to ER via Ambulatory with complaints of Dental jr8 pain. 01:25 Onset: The symptoms/episode began/occurred gradually, 2 day(s) ago, and became worse jr8 and became persistent. Associated signs and symptoms: The patient has no apparent associated signs or symptoms. Severity of symptoms: At their worst the symptoms were moderate, in the emergency department the symptoms are unchanged. The patient has experienced a previous episode. The patient has not recently seen a physician. Patient stated that he has history of bad dentition with infection in past. Started with pain for the past couple of days that is now not being relieved and getting worse . Historical: - Allergies: :53 No Known Allergies; bb - Home Meds: :53 None [Active]; bb - PMHx: :53 Anxiety; Depression; Hypertension; PTSD; bb - PSHx: :53 None; bb - Immunization history:: Adult Immunizations up to date. - Social history:: Smoking status: Patient reports the use of cigarette tobacco products, smokes one-half pack cigarettes per day. ROS: 01:25 Eyes: Negative for injury, pain, redness, and discharge, Neck: Negative for injury, jr8 pain, and swelling, Cardiovascular: Negative for chest pain, palpitations, and edema, Respiratory: Negative for shortness of breath, cough, wheezing, and pleuritic chest pain, Abdomen/GI: Negative for abdominal pain, nausea, vomiting, diarrhea, and constipation, Back: Negative for injury and pain, MS/Extremity: Negative for injury and deformity, Skin: Negative for injury, rash, and discoloration, Neuro: Negative for headache, weakness, numbness, tingling, and seizure. 01:25 ENT: Positive for dental pain. Exam: 01:25 Head/Face: Normocephalic, atraumatic. Eyes: Pupils equal round and reactive to light, jr8 extra-ocular motions intact. Lids and lashes normal. Conjunctiva and sclera are non-icteric and not injected. Cornea within normal limits. Periorbital areas with no swelling, redness, or edema. Neck: Trachea midline, no thyromegaly or masses palpated, and no cervical lymphadenopathy. Supple, full range of motion without nuchal rigidity, or vertebral point tenderness. No Meningismus. Cardiovascular: Regular rate and rhythm with a normal S1 and S2. No gallops, murmurs, or rubs. Normal PMI, no JVD. No pulse deficits. Respiratory: Lungs have equal breath sounds bilaterally, clear to auscultation and percussion. No rales, rhonchi or wheezes noted. No increased work of breathing, no retractions or nasal flaring. Skin: Warm, dry with normal turgor. Normal color with no rashes, no lesions, and no evidence of cellulitis. MS/ Extremity: Pulses equal, no cyanosis. Neurovascular intact. Full, normal range of motion. Neuro: Awake and alert, GCS 15, oriented to person, place, time, and situation. Motor strength 5/5 in all extremities. Sensory grossly intact. 01:25 ENT: Exam is negative for ear discharge, TM abnormalities, nasal discharge, pharyngitis, exudate, Dental exam: dental caries, that is moderate, diffusely, missing teeth, diffusely, pain, that is moderate, specifically in the upper right first molar (#3), no gum abscess noted . Vital Signs: 00:51 BP 119 / 88; Pulse 73; Resp 16 S; Temp 98.1(O); Pulse Ox 98% on R/A; Weight 70.31 kg bb (R); Height 5 ft. 11 in. (180.34 cm) (R); Pain 8/10; 00:51 Body Mass Index 21.62 (70.31 kg, 180.34 cm) bb MDM: 01:25 Data reviewed: vital signs, nurses notes, and as a result, I will discharge patient. jr8 Data interpreted: Pulse oximetry: on room air is 98 %. Interpretation: normal. Counseling: I had a detailed discussion with the patient and/or guardian regarding: the historical points, exam findings, and any diagnostic results supporting the discharge/admit diagnosis, the need for outpatient follow up, a dentist, to return to the emergency department if symptoms worsen or persist or if there are any questions or concerns that arise at home. 01:28 Patient medically screened. jr8 Administered Medications: 01:30 Drug: Stryker (HYDROcodone-acetaminophen) (7.5 mg-325 mg) 1 tabs {Note: RASS 0.} Route: bb PO; 01:39 Follow up: Response: No adverse reaction; RASS: Alert and Calm (0) bb Disposition: 03:06 Co-signature as Attending Physician, Rikki Cho MD. pkl Disposition: 10/20/20 01:28 Discharged to Home. Impression: Dental pain, Periapical abscess without sinus. - Condition is Stable. - Discharge Instructions: Dental Abscess, Dental Pain, Root Canal. - Prescriptions for Amoxicillin 875 mg Oral Tablet - take 1 tablet by ORAL route every 12 hours for 10 days; 20 tablet. Tramadol 50 mg Oral Tablet - take 1 tablet by ORAL route every 8 hours as needed; 12 tablet. - Medication Reconciliation Form, Thank You Letter, Antibiotic Education, Prescription Opioid Use form. - Follow up: Private Physician; When: 5 - 6 days; Reason: Recheck today's complaints, Continuance of care, Re-evaluation by your physician. - Problem is new. - Symptoms have improved. Signatures: Rikki Cho MD MD pkl Luisa Cam RN RN Shawn Damian PA PA jr8 Corrections: (The following items were deleted from the chart) 01:40 01:28 10/20/2020 01:28 Discharged to Home. Impression: Dental pain; Periapical abscess bb without sinus. Condition is Stable. Forms are Medication Reconciliation Form, Thank You Letter, Antibiotic Education, Prescription Opioid Use. Follow up: Private Physician; When: 5 - 6 days; Reason: Recheck today's complaints, Continuance of care, Re-evaluation by your physician. Problem is new. Symptoms have improved. jr8
--- NOTE | 2020-10-20 01:28 | ER ---
Nurse's Notes [facility] Name: Hermann Blackburn Age: 39 yrs Sex: Male : 1980 Arrival Date: 10/20/2020 Time: 00:26 Bed Waiting Private MD: Diagnosis: Dental pain;Periapical abscess without sinus Presentation: 10/20 00:51 Chief complaint: Patient states: he has had a tooth abscess for several days and the bb pain is getting worse. Coronavirus screen: At this time, the client does not indicate any symptoms associated with coronavirus-19. Ebola Screen: No symptoms or risks identified at this time. Initial Sepsis Screen: Does the patient meet any 2 criteria? No. Patient's initial sepsis screen is negative. Does the patient have a suspected source of infection? No. Patient's initial sepsis screen is negative. Risk Assessment: Do you want to hurt yourself or someone else? Patient reports no desire to harm self or others. Onset of symptoms is unknown. 00:51 Method Of Arrival: Ambulatory bb 00:51 Acuity: MEGHNA 5 bb Triage Assessment: 00:53 General: Appears in no apparent distress. uncomfortable, slender, Behavior is calm, bb cooperative. Pain: Complains of pain in lower right jaw Pain currently is 8 out of 10 on a pain scale. EENT: Reports pain in right lower jaw. Neuro: Level of Consciousness is awake, alert, obeys commands, Oriented to person, place, time, situation. Cardiovascular: No deficits noted. Respiratory: Respiratory effort is even, unlabored, Respiratory pattern is regular. GI: No deficits noted. Derm: Skin is pink, warm \T\ dry. Musculoskeletal: Circulation, motion, and sensation intact. Historical: - Allergies: 00:53 No Known Allergies; bb - Home Meds: 00:53 None [Active]; bb - PMHx: 00:53 Anxiety; Depression; Hypertension; PTSD; bb - PSHx: 00:53 None; bb - Immunization history:: Adult Immunizations up to date. - Social history:: Smoking status: Patient reports the use of cigarette tobacco products, smokes one-half pack cigarettes per day. Assessment: 01:39 Reassessment: pt discharged from triage and verbalized understanding of and agrees to plan of care discharge instructions given pt ambulated with steady gait to exit states his ride his waiting for him. Vital Signs: 00:51 BP 119 / 88; Pulse 73; Resp 16 S; Temp 98.1(O); Pulse Ox 98% on R/A; Weight 70.31 kg bb (R); Height 5 ft. 11 in. (180.34 cm) (R); Pain 8/10; 00:51 Body Mass Index 21.62 (70.31 kg, 180.34 cm) bb ED Course: 00:26 Patient arrived in ED. cf2 00:52 Triage completed. bb 00:53 Arm band placed on. bb 01:19 Shawn Watts PA is PHCP. jr8 01:20 Rikki Cho MD is Attending Physician. jr8 01:40 No provider procedures requiring assistance completed. Patient did not have IV access bb during this emergency room visit. Administered Medications: 01:30 Drug: [place] (HYDROcodone-acetaminophen) (7.5 mg-325 mg) 1 tabs {Note: RASS 0.} Route: bb PO; 01:39 Follow up: Response: No adverse reaction; RASS: Alert and Calm (0) bb Outcome: 01:28 Discharge ordered by . jr8 01:40 Discharged to home ambulatory. bb 01:40 Condition: stable 01:40 Discharge instructions given to patient, Instructed on discharge instructions, follow up and referral plans. no driving heavy equipment, medication usage, Demonstrated understanding of instructions, follow-up care, medications, Prescriptions given X 2. 01:40 Patient left the ED. bb Signatures: Luisa Cam RN RN bb Shawn Watts PA PA jr8 Brenda Willett cf2
[2020-10-20] MEDS ORDERED: HYDROCODONE/APAP 7.5/325 MG TAB ONE (01:42)
[2020-10-20 01:57] VITALS: BP 119/88; TEMP 98.1; O2SAT 98
== END 2020-10-20 01:40 | disposition home or self-care (01) ==
LOC: ER 00:22
DX: K04.7 Periapical abscess without sinus (principal); I10 Essential (primary) hypertension; F17.210 Nicotine dependence, cigarettes, uncomplicated
CPT/HCPCS: 99283

== ENCOUNTER 2020-11-08 19:43 | Emergency (ER) | payer SELFPAY ==
--- OUTSIDE RECORDS SUMMARY | 2020-11-08 19:45 | XMS REPORT | Continuity of Care Document ---
:1980 Author Organization [facility] t Address [address] [place] [address] Care Team Providers Name Role Phone Singer [...] Facility Department ID 2019-11-19 2019-11-[address] [facility] [id number] 13:21:25 14:37:00 Tono Castaneda [id number] [place] [id number] [place] [phone] [phone] Results This patient has no known results.
[2020-11-08 21:59] LABS: Urine Blood Negative (Negative); Urine Glucose Negative (Negative); Urine Protein Negative (Negative)
[2020-11-08] MEDS ORDERED: LORAZEPAM 1 MG TABLET ONE (23:50)
--- NOTE | 2020-11-09 00:01 | ER ---
Nurse's Notes [facility] Name: Hermann Blackburn Age: 39 yrs Sex: Male : 1980 Arrival Date: 11/08/2020 Time: 19:46 Bed 18 Private MD: Diagnosis: Hallucinations, unspecified Presentation: 11/08 20:48 Chief complaint: Patient states: Pt stated had anxiety attack earlier today and is vg1 having auditory hallucinations stating "Im going to kill you". Coronavirus screen: Client denies travel out of the [place] in the last 14 days. Ebola Screen: Patient negative for fever greater than or equal to 101.5 degrees Fahrenheit, and additional compatible Ebola Virus Disease symptoms. Initial Sepsis Screen: Does the patient meet any 2 criteria? No. Patient's initial sepsis screen is negative. Does the patient have a suspected source of infection? No. Patient's initial sepsis screen is negative. Risk Assessment: Do you want to hurt yourself or someone else? Patient reports no desire to harm self or others. Risk Assessment: Do you want to hurt yourself or someone else? Patient reports no desire to harm self or others. Onset of symptoms was November 08, 2020. 20:48 Method Of Arrival: Ambulatory 1 20:48 Acuity: MEGHNA 2 bb Triage Assessment: 22:58 General: Appears in no apparent distress. Behavior is calm, cooperative. Pain: Denies pain. 22:58 General: ran out of ativan prescription. auditory/visual hallucinations. none at this time. denies si/hi.. Historical: - Allergies: 20:53 No Known Allergies; vg1 - Home Meds: 20:53 None [Active]; vg1 - PMHx: 20:53 Anxiety; Depression; PTSD; Hypertension; vg1 - Immunization history:: Adult Immunizations up to date. - Social history:: Smoking status: Patient reports the use of cigarette tobacco products, smokes one pack cigarettes per day. Screenin:57 Abuse screen: Denies threats or abuse. Denies injuries from another. Nutritional screening: No deficits noted. Tuberculosis screening: No symptoms or risk factors identified. 22:58 Fall Risk None identified. Vital Signs: 20:48 BP 127 / 84; Pulse 76; Resp 18; Temp 98.2; Pulse Ox 99% ; Weight 70.31 kg; Height 5 ft. vg1 11 in. (180.34 cm); Pain 0/10; 22:59 BP 114 / 62; Pulse 67; Resp 16; Pulse Ox 99% on R/A; 20:48 Body Mass Index 21.62 (70.31 kg, 180.34 cm) vg1 ED Course: 19:46 Patient arrived in ED. [facility] 20:52 Triage completed. 1 20:53 Arm band placed on Patient placed in waiting room, Patient notified of wait time. 1 21:58 Urine collected: clean catch specimen, clear. [facility] 22:47 Jordana Santiago, RN is Primary Nurse. 22:47 Austin Herndon PA is PHCP. [facility] 22:47 Saturnino Phelps MD is Attending Physician. [facility] 22:57 Patient has correct armband on for positive identification. 22:57 No provider procedures requiring assistance completed. 11/09 00:23 Patient did not have IV access during this emergency room visit. ak2 Administered Medications: 11/08 23:33 Drug: Ativan (LORazepam) 1 mg Route: PO; Outcome: 11/09 00:00 Discharge ordered by . [facility] 00:23 Discharged to home ambulatory. ak2 00:23 Condition: good 00:23 Discharge instructions given to patient, Prescriptions given X 1. 00:24 Patient left the ED. ak2 Signatures: Austin Herndon PA PA jmm Ballard, Brenda, RN RN Jordana Santiago RN RN Sandra Asher RN JEFF [facility] Gardenia Ramos [facility] Madhav Delaney ak2 Corrections: (The following items were deleted from the chart) 11/08 23:48 20:48 Acuity: [facility] 3 [facility]
--- NOTE | 2020-11-09 00:01 | EDPHYS ---
[facility] Name: Hermann Blackburn Age: 39 yrs Sex: Male : 1980 Arrival Date: 11/08/2020 Time: 19:46 Bed 18 Private MD: ED Physician Saturnino Phelps HPI: 11/08 23:18 This 39 yrs old Male presents to ER via Ambulatory with complaints of jmm Anxiety, Hallucinations. 23:18 The patient presents to the emergency department with anxiety, psychosis, has jmm experienced auditory hallucinations. Onset: The symptoms/episode began/occurred today. Onset: The symptoms/episode began/occurred acutely. This is a 39 year old male with a histoyr of anxiety, ptsd, htn that presents to the ED with complaints of hallucinations telling him that they will harm him. Denies command hallucinations, denies SI or HI. . Historical: - Allergies: 20:53 No Known Allergies; vg1 - Home Meds: 20:53 None [Active]; vg1 - PMHx: 20:53 Anxiety; Depression; PTSD; Hypertension; vg1 - Immunization history:: Adult Immunizations up to date. - Social history:: Smoking status: Patient reports the use of cigarette tobacco products, smokes one pack cigarettes per day. ROS: 23:18 Constitutional: Negative for fever, chills, and weight loss, Cardiovascular: Negative jmm for chest pain, palpitations, and edema, Respiratory: Negative for shortness of breath, cough, wheezing, and pleuritic chest pain. 23:18 Psych: Positive for anxiety. 23:18 All other systems are negative. Exam: 23:18 Constitutional: This is a well developed, well nourished patient who is awake, alert, jmm and in no acute distress. Head/Face: atraumatic. Eyes: EOMI, no conjunctival erythema appreciated ENT: Moist Mucus Membranes Neck: Trachea midline, Supple Chest/axilla: Normal chest wall appearance and motion. Cardiovascular: Regular rate and rhythm. No edema appreciated Respiratory: Normal respirations, no respiratory distress appreciated Abdomen/GI: Non distended, soft Back: Normal ROM Skin: General appearance color normal MS/ Extremity: Moves all extremities, no obvious deformities appreciated, no edema noted to the lower extremities Neuro: Awake and alert, normal gait Psych: Behavior is normal, Mood is normal, Patient is cooperative and pleasant Vital Signs: 20:48 BP 127 / 84; Pulse 76; Resp 18; Temp 98.2; Pulse Ox 99% ; Weight 70.31 kg; Height 5 ft. vg1 11 in. (180.34 cm); Pain 0/10; 22:59 BP 114 / 62; Pulse 67; Resp 16; Pulse Ox 99% on R/A; wh 20:48 Body Mass Index 21.62 (70.31 kg, 180.34 cm) vg1 MDM: 22:50 Patient medically screened. [facility] 23:20 Data reviewed: vital signs, nurses notes. Counseling: I had a detailed discussion with [facility] the patient and/or guardian regarding: the historical points, exam findings, and any diagnostic results supporting the discharge/admit diagnosis, lab results. 23:59 ED course: Patient does not have command hallucinations, SI, or HI. Will follow up with [facility] psychiatry. patient is given strict return precautions. patient understood and agrees with the plan of care. . 11/08 22:00 Order name: Urine Dipstick-Ancillary; Complete Time: 23:02 EDMS Administered Medications: 23:33 Drug: Ativan (LORazepam) 1 mg Route: PO; Disposition: 11/09 16:51 Co-signature as Attending Physician, Saturnino Phelps MD I agree with the assessment and [facility] plan of care. Disposition: 11/09/20 00:00 Discharged to Home. Impression: Hallucinations, unspecified. - Condition is Stable. - Discharge Instructions: Schizophrenia. - Prescriptions for Ativan 1 mg Oral Tablet - take 1 tablet by ORAL route every 8 hours As needed; 20 tablet. - Medication Reconciliation Form, Thank You Letter, Antibiotic Education, Prescription Opioid Use form. - Follow up: Private Physician; When: 2 - 3 days; Reason: Recheck today's complaints, Continuance of care, Re-evaluation by your physician. Signatures: Saturnino Phelps MD MD cha Mickail, Joel, PA PA [facility] Jordana Santiago RN RN Sandra Asher RN RN vg1 Madhav Delaney2 Corrections: (The following items were deleted from the chart) 00:24 00:00 11/09/2020 00:00 Discharged to Home. Impression: Hallucinations, unspecified. ak2 Condition is Stable. Forms are Medication Reconciliation Form, Thank You Letter, Antibiotic Education, Prescription Opioid Use. Follow up: Private Physician; When: 2 - 3 days; Reason: Recheck today's complaints, Continuance of care, Re-evaluation by your physician. caroline
[2020-11-09 00:35] VITALS: TEMP 98.2; O2SAT 99
[2020-11-09 00:37] VITALS: BP 114/62
== END 2020-11-09 00:24 | disposition home or self-care (01) ==
LOC: ER 19:43
DX: R44.0 Auditory hallucinations (principal); F41.8 Other specified anxiety disorders; I10 Essential (primary) hypertension; F17.210 Nicotine dependence, cigarettes, uncomplicated
CPT/HCPCS: 81003; 99283

== ENCOUNTER 2021-02-13 18:51 | Emergency (ER) | payer SELFPAY ==
--- NOTE | 2021-02-13 22:13 | ER ---
Nurse's Notes [facility] Name: Hermann Blackburn Age: 40 yrs Sex: Male : 1980 Arrival Date: 02/13/2021 Time: 18:55 Bed External Waiting Private MD: Diagnosis: Adjustment disorder with anxiety Presentation: 02/13 20:17 Chief complaint: Patient states: Pt stated, "I've feeling very anxious like my brain is kg in over drive and I cant over come the voices. They started 3 days ago. This happens to me like every three months and I try to over come it and the medication helps a little to chip off the edge but doesn't take care of it.". Coronavirus screen: Client denies travel out of the [place] in the last 14 days. At this time, unable to obtain information related to travel outside the [place] At this time, the client does not indicate any symptoms associated with coronavirus-19. Ebola Screen: Patient negative for fever greater than or equal to 101.5 degrees Fahrenheit, and additional compatible Ebola Virus Disease symptoms Patient denies exposure to infectious person. Patient denies travel to an Ebola-affected area in the 21 days before illness onset. Initial Sepsis Screen: Does the patient meet any 2 criteria? No. Patient's initial sepsis screen is negative. Does the patient have a suspected source of infection? No. Patient's initial sepsis screen is negative. Risk Assessment: Do you want to hurt yourself or someone else? Patient reports no desire to harm self or others. Onset of symptoms was February 10, 2021. 20:17 Method Of Arrival: Ambulatory kg 20:17 Acuity: MEGHNA 4 kg Triage Assessment: 20:22 General: Appears in no apparent distress. Behavior is calm, cooperative, appropriate kg for age, quiet. Pain: Denies pain. Neuro: Reports auditory hallucinations x 3 days, . Historical: - Allergies: 20:22 No Known Allergies; kg - Home Meds: 20:22 Ativan 0.5 mg Oral tab [Active]; kg - PMHx: 20:22 Anxiety; Depression; Hypertension; PTSD; Schizophrenia; kg - PSHx: 20:22 None; kg - Immunization history:: Adult Immunizations up to date, Client reports receiving the 1st dose of the Covid vaccine, Moderna Pt thinks he got the moderna vaccines here about 6 months ago but is unsure. - Social history:: Smoking status: Patient reports the use of cigarette tobacco products, Patient uses alcohol, occasionally. Screenin:23 Abuse screen: Denies threats or abuse. Nutritional screening: No deficits noted. em Tuberculosis screening: No symptoms or risk factors identified. Fall Risk None identified. Vital Signs: 20:17 BP 134 / 77; Pulse 62; Resp 20; Temp 98.5(O); Pulse Ox 100% on R/A; Weight 68.04 kg kg (R); Height 6 ft. 0 in. (182.88 cm); Pain 0/10; 20:17 Body Mass Index 20.34 (68.04 kg, 182.88 cm) kg ED Course: 18:55 Patient arrived in ED. rg4 20:22 Triage completed. kg 20:41 Gregorio Choudhary MD is Attending Physician. tw4 21:23 Patient has correct armband on for positive identification. em 21:23 No provider procedures requiring assistance completed. Patient did not have IV access em during this emergency room visit. Administered Medications: No medications were administered Outcome: 21:23 Medical screen evaluation completed per provider. Patient declined treatment. em 21:23 Condition: stable 21:23 Discharge instructions given to patient, Instructed on discharge instructions, follow up and referral plans. Demonstrated understanding of instructions, follow-up care. 22:13 Discharge ordered by . tw4 22:15 Patient left the ED. em Signatures: Ben Mo, RN RN em Rachel Asher [facility] Gregorio Choudhary MD MD [facility] Diamond Fleming, RN RN kg Corrections: (The following items were deleted from the chart) 20:26 20:22 Home Meds: Paxil Oral; kg kg 20:26 20:22 Home Meds: lithium carbonate Oral; kg kg
--- NOTE | 2021-02-13 22:13 | EDPHYS ---
Physician Documentation [facility] Name: Hermann Blackburn Age: 40 yrs Sex: Male : 1980 Arrival Date: 02/13/2021 Time: 18:55 Bed External Waiting Private MD: ED Physician Gregorio Choudhary HPI: 02/13 22:21 This 40 yrs old Male presents to ER via Ambulatory with complaints of Anxiety.tw4 22:21 The patient presents to the emergency department with anxiety, over unknown tw4 circumstances. Onset: The symptoms/episode began/occurred today. Past psychiatric history: Prior diagnosis: no previous psychiatric diagnosis known. Associated signs and symptoms: The patient has no apparent associated signs or symptoms. Severity of symptoms: At their worst the symptoms were moderate in the emergency department the symptoms are unchanged. The patient has not experienced similar symptoms in the past. Historical: - Allergies: 20:22 No Known Allergies; kg - Home Meds: 20:22 Ativan 0.5 mg Oral tab [Active]; kg - PMHx: 20:22 Anxiety; Depression; Hypertension; PTSD; Schizophrenia; kg - PSHx: 20:22 None; kg - Immunization history:: Adult Immunizations up to date, Client reports receiving the 1st dose of the Covid vaccine, Moderna Pt thinks he got the moderna vaccines here about 6 months ago but is unsure. - Social history:: Smoking status: Patient reports the use of cigarette tobacco products, Patient uses alcohol, occasionally. ROS: 22:21 Constitutional: Negative for fever, chills, and weight loss, Eyes: Negative for injury, tw4 pain, redness, and discharge, Cardiovascular: Negative for chest pain, palpitations, and edema, Respiratory: Negative for shortness of breath, cough, wheezing, and pleuritic chest pain, Abdomen/GI: Negative for abdominal pain, nausea, vomiting, diarrhea, and constipation, Back: Negative for injury and pain, MS/Extremity: Negative for injury and deformity, Skin: Negative for injury, rash, and discoloration, Neuro: Negative for headache, weakness, numbness, tingling, and seizure. 22:21 Psych: Positive for anxiety, Negative for depression, drug dependence, alcohol dependence, auditory hallucinations, visual hallucinations, homicidal ideation, insomnia, suicide gesture, suicidal ideation. Exam: 22:21 Constitutional: This is a well developed, well nourished patient who is awake, alert, tw4 and in no acute distress. Head/Face: Normocephalic, atraumatic. Chest/axilla: Normal chest wall appearance and motion. Nontender with no deformity. No lesions are appreciated. Cardiovascular: Regular rate and rhythm with a normal S1 and S2. No gallops, murmurs, or rubs. Normal PMI, no JVD. No pulse deficits. Respiratory: Lungs have equal breath sounds bilaterally, clear to auscultation and percussion. No rales, rhonchi or wheezes noted. No increased work of breathing, no retractions or nasal flaring. Abdomen/GI: Soft, non-tender, with normal bowel sounds. No distension or tympany. No guarding or rebound. No evidence of tenderness throughout. Back: No spinal tenderness. No costovertebral tenderness. Full range of motion. Skin: Warm, dry with normal turgor. Normal color with no rashes, no lesions, and no evidence of cellulitis. MS/ Extremity: Pulses equal, no cyanosis. Neurovascular intact. Full, normal range of motion. 22:21 Psych: exam not indicated, patient is an , Behavior/mood is pleasant, tw4 cooperative, anxious, Affect is animated. Vital Signs: 20:17 BP 134 / 77; Pulse 62; Resp 20; Temp 98.5(O); Pulse Ox 100% on R/A; Weight 68.04 kg kg (R); Height 6 ft. 0 in. (182.88 cm); Pain 0/10; 20:17 Body Mass Index 20.34 (68.04 kg, 182.88 cm) kg MDM: 21:07 Patient medically screened. tw4 22:13 Differential diagnosis: drug withdrawal. acute psychotic break, depression. Data tw4 reviewed: vital signs, nurses notes. Medical screen evaluation completed. EMTALA emergency medical condition absent. Special discussion: I discussed with the patient/guardian in detail that at this point there is no indication for admission to the hospital. It is understood, however, that if the symptoms persist or worsen the patient needs to return immediately for re-evaluation. Administered Medications: No medications were administered Disposition Summary: 02/13/21 22:13 Discharge Ordered Location: Home tw4 Problem: an ongoing problem tw4 Symptoms: are unchanged tw4 Condition: Stable tw4 Diagnosis - Adjustment disorder with anxiety tw4 Followup: tw4 - With: Private Physician - When: Upon discharge from the Emergency Department - Reason: Recheck today's complaints, Continuance of care, Re-evaluation by your physician Forms: - Medication Reconciliation Form tw4 - Thank You Letter tw4 - Antibiotic Education tw4 - Prescription Opioid Use tw4 Signatures: Gregorio Choudhary MD MD tw4 Diamond Fleming, RN RN kg Corrections: (The following items were deleted from the chart) 20:26 20:22 Home Meds: Paxil Oral; kg kg 20:26 20:22 Home Meds: lithium carbonate Oral; kg kg
[2021-02-13 22:20] VITALS: BP 134/77; TEMP 98.5; O2SAT 100
--- OUTSIDE RECORDS SUMMARY | 2021-02-13 22:50 | XMS REPORT | Continuity of Care Document ---
:1980 Author Organization [facility] t Address [address] [place] [address] Care Team Providers Name Role Phone Singer [...] Department ID 2019-11-19 2019-11-19 Emergency Singer [facility] [id number] 13:21:25 14:37:00 Tono Castaneda [id number] [place] [id number] [place] [phone] [id number] Results This patient has no known results.
== END 2021-02-13 22:15 | disposition home or self-care (01) ==
LOC: ER 18:51
DX: F43.22 Adjustment disorder with anxiety (principal); I10 Essential (primary) hypertension; F20.9 Schizophrenia, unspecified; Z72.0 Tobacco use
CPT/HCPCS: 99281

== ENCOUNTER 2021-04-11 11:20 | Emergency (ER) | payer SELFPAY ==
--- NOTE | 2021-04-11 12:24 | ER ---
Nurse's Notes [facility] Name: Hermann Blackburn Age: 40 yrs Sex: Male : 1980 Arrival Date: 04/11/2021 Time: 11:22 Bed 7 Private MD: Diagnosis: Generalized anxiety disorder Presentation: 04/11 11:42 Chief complaint: Patient states: Going through some family issues and started feeling vg1 anxious and BP was elevated. Denies NV, headache; states is having some 'chest tension'. Coronavirus screen: Vaccine status: Patient reports receiving the 1st dose of the Covid vaccine. Client denies travel out of the [place] in the last 14 days. Ebola Screen: Patient negative for fever greater than or equal to 101.5 degrees Fahrenheit, and additional compatible Ebola Virus Disease symptoms. Initial Sepsis Screen: Does the patient meet any 2 criteria? No. Patient's initial sepsis screen is negative. Does the patient have a suspected source of infection? No. Patient's initial sepsis screen is negative. Risk Assessment: Do you want to hurt yourself or someone else? Patient reports no desire to harm self or others. Onset of symptoms was April 11, 2021. 11:42 Method Of Arrival: Ambulatory vg1 11:42 Acuity: MEGHNA 3 vg1 Triage Assessment: 11:45 General: Appears in no apparent distress. uncomfortable, Behavior is cooperative, vg1 anxious. Pain: Complains of pain in mid-sternal area. Historical: - Allergies: 11:45 No Known Allergies; vg1 - Home Meds: 11:45 Ativan 0.5 mg Oral tab [Active]; vg1 - PMHx: 11:45 Anxiety; Depression; Hypertension; PTSD; Schizophrenia; vg1 - Immunization history:: Adult Immunizations up to date, Client reports receiving the 1st dose of the Covid vaccine. - Social history:: Smoking status: Patient reports the use of cigarette tobacco products, smokes one pack cigarettes per day. - Family history:: not pertinent. Screenin:01 Abuse screen: Denies threats or abuse. Nutritional screening: No deficits noted. ap3 Tuberculosis screening: No symptoms or risk factors identified. Fall Risk None identified. Assessment: 12:01 General: Appears comfortable, Behavior is anxious. Pain: Denies pain. Neuro: Level of ap3 Consciousness is awake, alert, obeys commands, Oriented to person, place, time, Speech is normal. Cardiovascular: Patient's skin is warm and dry. Respiratory: Airway is patent. GI: No signs and/or symptoms were reported involving the gastrointestinal system. : No signs and/or symptoms were reported regarding the genitourinary system. EENT: No signs and/or symptoms were reported regarding the EENT system. 12:30 Reassessment: No changes from previously documented assessment. Patient and/or family ll1 updated on plan of care and expected duration. Pain level reassessed. Patient is alert, oriented x 3, equal unlabored respirations, skin warm/dry/pink. Vital Signs: 11:42 BP 120 / 77; Pulse 82; Resp 20; Temp 98.3; Pulse Ox 100% ; Weight 68.04 kg; Height 5 vg1 ft. 11 in. (180.34 cm); Pain 0/10; 12:30 BP 128 / 78; Pulse 61; Resp 18; Pulse Ox 99% on R/A; Pain 0/10; ll1 11:42 Body Mass Index 20.92 (68.04 kg, 180.34 cm) vg1 ED Course: 11:22 Patient arrived in ED. ds1 11:45 Triage completed. vg1 11:45 Arm band placed on. vg1 11:52 Brenda Purdy, JEFF is Primary Nurse. ap3 11:52 Sanket Alvarez MD is Attending Physician. ma2 12:01 Patient has correct armband on for positive identification. Pulse ox on. NIBP on. Door ap3 closed. Noise minimized. 12:31 No provider procedures requiring assistance completed. Patient did not have IV access ll1 during this emergency room visit. Administered Medications: 12:08 Drug: Ativan (LORazepam) 1 mg Route: PO; ap3 12:30 Follow up: Response: No adverse reaction; RASS: Alert and Calm (0) ll1 Outcome: 12:23 Discharge ordered by . ma2 12:31 Discharged to home ambulatory. ll1 12:31 Condition: stable 12:31 Discharge instructions given to patient, Instructed on discharge instructions, follow up and referral plans. Demonstrated understanding of instructions, follow-up care. 12:31 Patient left the ED. ll1 Signatures: Kamini Black ds1 Sanket Alvarez MD MD ma2 Prokisch, Brenda, RN RN ap3 Sandra Asher RN RN vg1 Nohemi Spear RN RN ll1 Corrections: (The following items were deleted from the chart) 11:46 11:42 Acuity: MEGHNA 4 vg1 vg1
--- NOTE | 2021-04-11 12:24 | EDPHYS ---
Physician Documentation [facility] Name: Hermann Blackburn Age: 40 yrs Sex: Male : 1980 Arrival Date: 04/11/2021 Time: 11:22 Bed 7 Private MD: ED Physician Sanket Alvarez HPI: 04/11 12:22 This 40 yrs old Male presents to ER via Ambulatory with complaints of ma2 Anxiety, High Blood Pressure. 12:22 Onset: The symptoms/episode began/occurred gradually, 1 day(s) ago. Associated signs ma2 and symptoms: Pertinent negatives: dyspnea, lightheadedness, vomiting. Severity of symptoms: At its worst the blood pressure was moderate, in the emergency department the blood pressure is improved. The patient has experienced similar episodes in the past. Historical: - Allergies: 11:45 No Known Allergies; vg1 - Home Meds: 11:45 Ativan 0.5 mg Oral tab [Active]; vg1 - PMHx: 11:45 Anxiety; Depression; Hypertension; PTSD; Schizophrenia; vg1 - Immunization history:: Adult Immunizations up to date, Client reports receiving the 1st dose of the Covid vaccine. - Social history:: Smoking status: Patient reports the use of cigarette tobacco products, smokes one pack cigarettes per day. - Family history:: not pertinent. ROS: 12:22 Constitutional: Negative for fever, chills, and weight loss. ma2 12:22 All other systems are negative. Exam: 12:22 Constitutional: This is a well developed, well nourished patient who is awake, alert, ma2 and in no acute distress. Chest/axilla: Normal chest wall appearance and motion. Nontender with no deformity. No lesions are appreciated. Cardiovascular: Regular rate and rhythm with a normal S1 and S2. No gallops, murmurs, or rubs. Normal PMI, no JVD. No pulse deficits. Respiratory: Lungs have equal breath sounds bilaterally, clear to auscultation and percussion. No rales, rhonchi or wheezes noted. No increased work of breathing, no retractions or nasal flaring. Abdomen/GI: Soft, non-tender, with normal bowel sounds. No distension or tympany. No guarding or rebound. No evidence of tenderness throughout. MS/ Extremity: Pulses equal, no cyanosis. Neurovascular intact. Full, normal range of motion. Neuro: Awake and alert, GCS 15, oriented to person, place, time, and situation. Cranial nerves II-XII grossly intact. Motor strength 5/5 in all extremities. Sensory grossly intact. Cerebellar exam normal. Normal gait. 12:22 Neuro: Awake and alert, GCS 15, oriented to person, place, time, and situation. ma2 Cranial nerves II-XII grossly intact. Motor strength 5/5 in all extremities. Sensory grossly intact. Cerebellar exam normal. Normal gait. Psych: Awake, alert, with orientation to person, place and time. Behavior, mood, and affect are within normal limits. Vital Signs: 11:42 BP 120 / 77; Pulse 82; Resp 20; Temp 98.3; Pulse Ox 100% ; Weight 68.04 kg; Height 5 vg1 ft. 11 in. (180.34 cm); Pain 0/10; 12:30 BP 128 / 78; Pulse 61; Resp 18; Pulse Ox 99% on R/A; Pain 0/10; ll1 11:42 Body Mass Index 20.92 (68.04 kg, 180.34 cm) vg1 MDM: 11:52 Patient medically screened. ma2 12:22 Differential diagnosis: anxiety, panic attacks vs bipolar. Data reviewed: vital signs, ma2 nurses notes. Counseling: I had a detailed discussion with the patient and/or guardian regarding: the historical points, exam findings, and any diagnostic results supporting the discharge/admit diagnosis, the presence of at least one elevated blood pressure reading (>120/80) during this emergency department visit, the need for outpatient follow up. Response to treatment: the patient's symptoms have markedly improved after treatment. Administered Medications: 12:08 Drug: Ativan (LORazepam) 1 mg Route: PO; ap3 12:30 Follow up: Response: No adverse reaction; RASS: Alert and Calm (0) ll1 Disposition Summary: 04/11/21 12:23 Discharge Ordered Location: Home ma2 Condition: Stable ma2 Diagnosis - Generalized anxiety disorder ma2 Followup: ma2 - With: Private Physician - When: Tomorrow - Reason: Continuance of care Discharge Instructions: - Discharge Summary Sheet ma2 - Generalized Anxiety Disorder, Pediatric ma2 Forms: - Medication Reconciliation Form ma2 - Thank You Letter ma2 - Antibiotic Education ma2 - Prescription Opioid Use ma2 Signatures: Sanket Alvarez MD MD ma2 Brenda Purdy RN RN ap3 Sandra Asher RN RN vg1 Nohemi Spear RN ll1
[2021-04-11] MEDS ORDERED: LORAZEPAM 1 MG TABLET ONE (12:32)
[2021-04-11 12:37] VITALS: TEMP 98.3
[2021-04-11 12:38] VITALS: BP 128/78; O2SAT 99
== END 2021-04-11 12:31 | disposition home or self-care (01) ==
LOC: ER 11:20
DX: F41.1 Generalized anxiety disorder (principal); I10 Essential (primary) hypertension; F20.9 Schizophrenia, unspecified; F17.210 Nicotine dependence, cigarettes, uncomplicated
CPT/HCPCS: 99283

== ENCOUNTER 2022-03-25 22:18 | Emergency (ER) | payer SELFPAY ==
--- OUTSIDE RECORDS SUMMARY | 2022-03-25 22:21 | XMS REPORT | Continuity of Care Document ---
:1980 Author Organization [facility] t Address [address] [place] [address] Care Team Providers Name Role Phone ABBY MOCK Attending Clinician Unavailable Tono Lewis DO Attending Clinician TONO LEWIS Attending Clinician Unavailable Payers Payer Name Policy Type Policy Number Effective Date Expiration Date S [facility] MEDICAID PENDING PENDING 2020 00:00:00 Problems This patient has no known problems. Allergies, Adverse Reactions, Alerts Allergy Allergy Status Severity Reaction(s) Onset Inactive Treating Comm ents Source Name Type Date Date Clinician NO KNOWN Drug Active Univers ALLERGIE Class ity of [facility] Social History Social Habit Start Date Stop Date Quantity Comments Source [facility] to SARS-CoV-2 Not sure [facility] [place] (event) [facility] Smoking Status Start Date Stop Date Source Unknown if ever smoked [facility] Medications Ordered Filled Start Stop Current Ordering Indication Dosage Frequency Signature Comments Components Source Medication Medication Date Date Medication? Clinician (SIG) Name Name hydrOXYzine 2019- Yes [id number] 10mg Take 1 Univers 10 mg 5-28 tablet by ity of tablet 00:00: mouth [place] 00 every 6 Medical (six) Branch hours as needed for Itching. LORazepam 2019-0 Yes [id number] .5mg Take 1 Un henna (ATIVAN) 5-28 tablet by ity of 0.5 mg 00:00: mouth [place] tablet 00 every 4 Medical (four) Branch hours as needed for Anxiety. Vital Signs Vital Name Observation Time Observation Value Comments Source Heart rate 2019-11-19 18:19:00 69 /min [facility] Body temperature 2019-11-19 18:19:00 37.39 Lisandra [facility] [place] [facility] Respiratory rate 2019-11-19 18:19:00 16 /min [facility] [place] [facility] Body height 2019-11-19 18:19:00 182.9 cm [facility] [place] [facility] Body weight 2019-11-19 18:19:00 68.04 kg [facility] [place] [facility] BMI 2019-11-19 18:19:00 20.34 kg/m2 [facility] [place] [facility] Oxygen saturation in 2019-11-19 18:19:00 100 /min University of Arterial blood by [place] [employer] brigid Pulse oximetry Branch Systolic blood 2019-11-19 18:19:00 122 mm[Hg] Univer sity [facility] pressure [place] [facility] Diastolic blood 2019-11-19 18:19:00 79 mm[Hg] Unive rsity [facility] pressure [place] [facility] Heart rate 2019-11-19 18:19:00 69 /min [facility] [place] [facility] Body temperature 2019-11-19 18:19:00 37.39 Lisandra [facility] [place] [facility] Respiratory rate 2019-11-19 18:19:00 16 /min [facility] [place] [facility] Body height 2019-11-19 18:19:00 182.9 cm [facility] [place] [facility] Body weight 2019-11-19 18:19:00 68.04 kg [facility] [place] [facility] BMI 2019-11-19 18:19:00 20.34 kg/m2 [facility] [place] [facility] Oxygen saturation in 2019-11-19 18:19:00 100 /min University of Arterial blood by [place] [employer] brigid Pulse oximetry Branch Systolic blood 2019-11-19 18:19:00 122 mm[Hg] Univer sity [facility] pressure [place] [facility] Diastolic blood 2019-11-19 18:19:00 79 mm[Hg] Unive rsity [facility] pressure [place] [facility] Procedures Procedure Date / Time Performed Performing Clinician [facility] e NOTICE OF PRIVACY 2019-11-19 18:09:36 Doctor Unassigned, No [facility] [place] [facility] Name [facility] Branch CONSENT/REFUSAL FOR 2019-11-19 18:09:12 Doctor Unassigned, No [facility] [place] DIAGNOSIS AND Name Medical Branch TREATMENT Encounters Start End Encounter Admission Attending Care Care Encounter Source Date/Time Date/Time Type Type Clinicians Facility Department ID 2020-01-01 2020-01-01 Emergency X [facility] ERT [id number] Univers 01:09:04 01:09:04 ABBY hwang [facility] 2019-11-19 2019-11-19 Emergency [facility] [id number] Univers 13:21:25 14:37:00 Tono Castaneda [id number] i ty of [place] [id number] [facility] [id number] [address] 2019-11-19 2019-11-19 [facility] [id number] 13:21:25 14:37:00 Tono Castaneda [id number] [place] [id number] [place] [id number] [facility] 2019-11-19 2019-11-19 [facility] [id number] Univers 13:09:00 13:09:00 TONO hwang [facility] Results This patient has no known results.
--- NOTE | 2022-03-25 23:44 | ER ---
Nurse's Notes [facility] Name: Hermann Blackburn Age: 41 yrs Sex: Male : 1980 Arrival Date: 03/25/2022 Time: 22:19 Bed 11 Private MD: Diagnosis: Presentation: 03/25 22:47 Chief complaint: Patient states: "I'm having anxiety attacks. I'm prescribed medicine vc1 but I just moved here and don't have insurance. I am having a hard time eating and sleeping. I'm just having pretty bad anxiety its like every thing I don't want to think of is just there.". Coronavirus screen: Vaccine status: Patient reports receiving the 2nd dose of the covid vaccine. no booster; doesn't remember senior lead software engineer. At this time, the client does not indicate any symptoms associated with coronavirus-19. Ebola Screen: No symptoms or risks identified at this time. Risk Assessment: Do you want to hurt yourself or someone else? Patient reports no desire to harm self or others. Onset of symptoms is unknown. 22:47 Method Of Arrival: Ambulatory vc1 22:47 Acuity: MEGHNA 5 vc1 Triage Assessment: 22:51 General: Appears uncomfortable, slender, Behavior is anxious. Pain: Denies pain. Neuro: vc1 Level of Consciousness is awake, alert, obeys commands, Oriented to person, place, time, situation, Appropriate for age. Cardiovascular: Capillary refill < 3 seconds Patient's skin is warm and dry. Respiratory: Airway. GI: No deficits noted. : No deficits noted. Derm: No deficits noted. Musculoskeletal: No deficits noted. Historical: - Home Meds: 22:50 Ativan 0.5 mg Oral tab [Active]; vc1 - PMHx: 22:50 Anxiety; Depression; Hypertension; PTSD; Schizophrenia; vc1 - PSHx: 22:50 None; vc1 - Immunization history:: Adult Immunizations up to date, Client reports receiving the 2nd dose of the Covid vaccine. - Social history:: Smoking status: Patient reports the use of cigarette tobacco products, 7 cigs, Reported history of juuling and/or vaping. Assessment: 23:43 General: called, no answer in lobby. Was informed by Agency Owner that they were ld1 outside smoking a cigarette, the left. Stated the wait was too long. . Vital Signs: 22:47 Weight 68.04 kg; Height 5 ft. 11 in. (180.34 cm); Pain 0/10; vc1 22:54 BP 108 / 69; Pulse 65; Resp 16; Temp 98.4; Pulse Ox 98% ; vc1 22:47 Body Mass Index 20.92 (68.04 kg, 180.34 cm) vc1 ED Course: 22:19 Patient arrived in ED. bp1 22:50 Triage completed. vc1 22:53 Arm band placed on right wrist. vc1 23:37 Wilfrido Douglass, RN is Primary Nurse. as6 Administered Medications: No medications were administered Outcome: 23:44 Patient left the ED. ld1 Signatures: Gardenia Ramos bp1 Moni Strange, RN RN ld1 Wilfrido Douglass, RN RN as6 Tami Song RN RN vc1
[2022-03-25 23:56] VITALS: BP 108/69; TEMP 98.4; O2SAT 98
== END 2022-03-25 23:44 | disposition left against medical advice (07) ==
LOC: ER 22:18
DX: F41.9 Anxiety disorder, unspecified (principal); Z53.21 Procedure and treatment not carried out due to patient leaving prior to being seen by health care provider; F32.A Depression, unspecified; I10 Essential (primary) hypertension; F43.10 Post-traumatic stress disorder, unspecified; F20.9 Schizophrenia, unspecified; F17.210 Nicotine dependence, cigarettes, uncomplicated
CPT/HCPCS: 99281

== ENCOUNTER 2023-12-24 05:12 | Emergency (ER) | payer SELFPAY ==
--- OUTSIDE RECORDS SUMMARY | 2023-12-24 05:15 | XMS REPORT | Continuity of Care Document ---
Author Name Unknown Address [address] [place] [address] [facility] thconnect Address [address] [place] [address] Care Team Providers Care Transition Nurse Name Role Phone ABBY MOCK Attending Clinician Unavailable Tono Varela DO Attending Clinician TONO VARELA Attending Clinician Unavailable Payers Payer Name Policy Type Policy Number Effective Date Expirati on Date Source MEDICAID PENDING PENDING 2020 00:00:00 Allergies, Adverse Reactions, Alerts Allergy Name Allergy Type Status Severity Reaction(s) Onset Date Inactive Date Treating Clinician Comments Source NO KNOWN ALLERGIE S Drug Class Active [facility] Social History Social Habit Start Date Stop Date Quantity Comments Source Sex Assigned At [facility] Exposure to SARS-CoV-2 (event) Not sure [facility] Smoking Status Start Date Stop Date Source Unknown if ever smoked [facility] Medications Ordered Medication Name Filled Medication Name Start Date Stop Date Current Medication? Ordering Clinician Indication Dosage Frequency Signature (SIG) Comments Components Source hydrOXYzine 10 mg tablet 11-18 00:00: 00 Yes [id number] 10mg Take 1 tablet by mouth every 6 (six) hours as needed for Itching. [facility] LORazepam (ATIVAN) 0.5 mg tablet 11-18 00:00: 00 Yes [id number] .5mg Take 1 tablet by mouth every 4 (four) hours as needed for Anxiety. [facility] Vital Signs Vital Name Observation Time Observation Value Comments S ource Heart rate 2019-11-19 18:19:00 69 /min Un[facility] Body temperature 2019-11-19 18:19:00 37.39 Lisandra [facility] Respiratory rate 2019-11-19 18:19:00 16 /min [facility] Body height 2019-11-19 18:19:00 182.9 cm [facility] Body weight 2019-11-19 18:19:00 68.04 kg Univ [facility] BMI 2019-11-19 18:19:00 20.34 kg/m2 [facility] Oxygen saturation in Arterial blood by Pulse oximetry 2019-11-19 18:19:00 100 /min [facility] Systolic blood pressure 2019-11-19 18:19:00 122 mm[Hg] [facility] Diastolic blood pressure 2019-11-19 18:19:00 79 mm[Hg] [facility] Heart rate 2019-11-19 18:19:00 69 /min Unive [facility] Body temperature 2019-11-19 18:19:00 37.39 Lisandra [facility] Respiratory rate 2019-11-19 18:19:00 16 /min [facility] Body height 2019-11-19 18:19:00 182.9 cm [facility] Body weight 2019-11-19 18:19:00 68.04 kg [facility] BMI 2019-11-19 18:19:00 20.34 kg/m2 [facility] Oxygen saturation in Arterial blood by Pulse oximetry 2019-11-19 18:19:00 100 /min [facility] Systolic blood pressure 2019-11-19 18:19:00 122 mm[Hg] [place] [facility] Diastolic blood pressure 2019-11-19 18:19:00 79 mm[Hg] [place] [facility] Procedures Procedure Date / Time Performed Performing Clinicia n Source NOTICE OF PRIVACY PRACTICES 2019-11-19 18:09:36 Doctor Unassigned, [place] [facility] CONSENT/REFUSAL FOR DIAGNOSIS AND TREATMENT 2019-11-19 18:09:12 Doctor Unassigned, [place] [facility] Encounters Start Date/Time End Date/Time Encounter Type Admission Type Attending Clinicians Care Facility Care Department Encounter ID Source 2020-01-01 01:09:04 2020-01-01 01:09:04 Emergency X ABBY MOCK [facility] ERT [id number] [facility] 2019-11-19 13:21:25 2019-11-19 14:37:00 Emergency Tono Varela [facility] [id number] [facility] 2019-11-19 13:21:25 2019-11-19 14:37:00 Emergency Singer Tono [facility] [id number] 2019-11-19 13:09:00 2019-11-19 13:09:00 Emergency X TONO VARELA [facility] E[facility] [id number] [facility]
[2023-12-24] MEDS ORDERED: LORAZEPAM 1 MG TABLET ONE (05:28)
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
--- NOTE | 2023-12-24 06:34 | ER ---
Nurse's Notes [facility] Name: Hermann Blackburn Age: 43 yrs Sex: Male : 1980 Arrival Date: 12/24/2023 Time: 05:12 Bed 5 Private MD: Diagnosis: Anxiety disorder, unspecified;Acute anxiety attack Presentation: 12/23 05:19 Chief complaint: Patient states: I feel really anxious and I ran out of my ativan. bm8 Coronavirus screen: At this time, the client does not indicate any symptoms associated with coronavirus-19. Ebola Screen: Patient negative for fever greater than or equal to 101.5 degrees Fahrenheit, and additional compatible Ebola Virus Disease symptoms Patient denies exposure to infectious person. Patient denies travel to an Ebola-affected area in the 21 days before illness onset. No symptoms or risks identified at this time. Initial Sepsis Screen: Does the patient meet any 2 criteria? No. Patient's initial sepsis screen is negative. Does the patient have a suspected source of infection? No. Patient's initial sepsis screen is negative. Risk Assessment: Do you want to hurt yourself or someone else? Patient reports no desire to harm self or others. Onset of symptoms is unknown. 05:19 Method Of Arrival: EMS: [facility] bm8 05:19 Acuity: MEGHNA 4 bm8 Triage Assessment: 05:21 General: Appears in no apparent distress. comfortable, Behavior is cooperative, bm8 appropriate for age, anxious, restless. Pain: Denies pain. EENT: No deficits noted. No signs and/or symptoms were reported regarding the EENT system. Neuro: Level of Consciousness is awake, alert, obeys commands, Oriented to person, place, time, situation, Appropriate for age. Cardiovascular: No deficits noted. Denies chest pain, shortness of breath, Heart tones S1 S2 present Capillary refill < 3 seconds Patient's skin is warm and dry. Respiratory: No deficits noted. Airway is patent Trachea midline Respiratory effort is even, unlabored, Respiratory pattern is regular, symmetrical, Breath sounds are clear bilaterally. GI: No signs and/or symptoms were reported involving the gastrointestinal system. : No signs and/or symptoms were reported regarding the genitourinary system. Derm: No signs and/or symptoms reported regarding the dermatologic system. Musculoskeletal: No signs and/or symptoms reported regarding the musculoskeletal system. Historical: - Allergies: 05:21 No Known Allergies; bm8 - Home Meds: 05:21 Ativan 0.5 mg Oral tab [Active]; bm8 - PMHx: 05:21 Anxiety; Depression; Hypertension; PTSD; Schizophrenia; bm8 - PSHx: 05:21 None; bm8 - Immunization history:: Adult Immunizations up to date. - Infectious Disease History:: Denies. - Social history:: Smoking status: Patient reports the use of cigarette tobacco products, smokes one pack cigarettes per day. - Family history:: not pertinent. Screenin:23 [facility] ED Fall Risk Assessment (Adult) History of falling in the last 3 months, bm8 including since admission No falls in past 3 months (0 pts) Confusion or Disorientation No (0 pts) Intoxicated or Sedated No (0 pts) Impaired Gait No (0 pts) Mobility Assist Device Used No (0 pt) Altered Elimination No (0 pt) Score/Fall Risk Level 0 - 2 = Low Risk Oriented to surroundings, Maintained a safe environment, Educated pt \T\ family on fall prevention, incl call for assistance when getting out of bed, Assessed \T\ reinforced patient's understanding of fall precautions. Abuse screen: Denies threats or abuse. Nutritional screening: No deficits noted. Tuberculosis screening: No symptoms or risk factors identified. Assessment: :23 Reassessment: see triage note. bm8 06:19 Reassessment: Patient appears in no apparent distress at this time. Patient and/or bm8 family updated on plan of care and expected duration. Pain level reassessed. Patient is alert, oriented x 3, equal unlabored respirations, skin warm/dry/pink. pt appears to completely relaxed, no sign of anxiety noted Patient states feeling better. Patient states symptoms have improved. General: Appears in no apparent distress. comfortable, Behavior is calm, cooperative. Pain: Denies pain. Neuro: No deficits noted. Level of Consciousness is alert, obeys commands, Oriented to person, place, time, situation, Appropriate for age. Cardiovascular: No deficits noted. Capillary refill < 3 seconds Patient's skin is warm and dry. Respiratory: Airway is patent Trachea midline Respiratory effort is even, unlabored, Respiratory pattern is regular, symmetrical. GI: No signs and/or symptoms were reported involving the gastrointestinal system. : No signs and/or symptoms were reported regarding the genitourinary system. EENT: No signs and/or symptoms were reported regarding the EENT system. Derm: No signs and/or symptoms reported regarding the dermatologic system. Musculoskeletal: No signs and/or symptoms reported regarding the musculoskeletal system. Vital Signs: 05:19 BP 103 / 79; Pulse 102; Resp 16; Temp 98.7; Pulse Ox 98% on R/A; Weight 68.04 kg; bm8 Height 5 ft. 11 in. ; Pain 0/10; 06:19 BP 111 / 75; Pulse 86; Resp 14; Temp 98.7; Pulse Ox 97% on R/A; Pain 0/10; bm8 05:19 Body Mass Index 20.92 (68.04 kg, 180.34 cm) bm8 05:19 Pain Scale: Adult bm8 06:19 Pain Scale: Adult bm8 [place] Coma Score: 05:23 Eye Response: spontaneous(4). Motor Response: obeys commands(6). Verbal Response: bm8 oriented(5). Total: 15. 06:19 Eye Response: spontaneous(4). Motor Response: obeys commands(6). Verbal Response: bm8 oriented(5). Total: 15. 06:29 Eye Response: spontaneous(4). Motor Response: obeys commands(6). Verbal Response: sp4 oriented(5). Total: 15. ED Course: 05:19 Patient arrived in ED. bm8 05:21 Triage completed. bm8 05:21 Arm band placed on right wrist. bm8 05:23 Patient has correct armband on for positive identification. Call light in reach. Side bm8 rails up X 1. Client placed on continuous cardiac and pulse oximetry monitoring. NIBP monitoring applied. Pulse ox on. NIBP on. Door closed. Noise minimized. Diet tray given. PO fluids given. Verbal reassurance given. 05:23 No provider procedures requiring assistance completed. Patient did not have IV access bm8 during this emergency room visit. 05:25 Micha Nesbitt MD is Attending Physician. sp4 06:18 Nima Kaufman, RN is Primary Nurse. bm8 06:19 Provided Education on: post er care. bm8 Administered Medications: 05:31 Drug: LORazepam PO 2 mg PO once Route: PO; rg5 06:19 Follow up: Response: No adverse reaction bm8 Medication: 05:23 VIS not applicable for this client. bm8 Outcome: 06:33 Discharge ordered by . spSandro 06:44 Discharged to home ambulatory, bm8 06:44 Condition: stable 06:44 Discharge instructions given to patient, Instructed on discharge instructions, follow up and referral plans. medication usage, safety practices, Demonstrated understanding of instructions, follow-up care, medications, Prescriptions given X 1, 06:45 Patient left the ED. bm8 Signatures: Micha Nesbitt MD MD sp4 Nima Kaufman, RN RN bm8 Ronn Khan, RN RN rg5
[2023-12-24 07:01] VITALS: BP 111/75; TEMP 98.7; O2SAT 97
== END 2023-12-24 06:45 | disposition home or self-care (01) ==
LOC: ER 05:12
DX: F41.0 Panic disorder [episodic paroxysmal anxiety] (principal); F41.9 Anxiety disorder, unspecified

== ENCOUNTER 2024-03-23 00:37 | Emergency (ER) | payer OTHER ==
--- OUTSIDE RECORDS SUMMARY | 2024-03-23 00:41 | XMS REPORT | Continuity of Care Document ---
Author Name Unknown Address [address] [facility] [address] [place] [address] [facility] thconnect Address [address] [place] [address] Care Team Providers Care Deputy Director Of Public Works Name Role Phone ABBY MOCK Attending Clinician Unavailable Tono Varela DO Attending Clinician TONO VARELA Attending Clinician Unavailable Payers Payer Name Policy Type Policy Number Effective Date Expirati on Date Source MEDICAID PENDING PENDING 2020 00:00:00 Allergies, Adverse Reactions, Alerts Allergy Name Allergy Type Status Severity Reaction(s) Onset Date Inactive Date Treating Clinician Comments Source NO KNOWN ALLERGIE S Drug Class Active [facility] Social History Social Habit Start Date Stop Date Quantity Comments Source Sex Assigned At [facility] Exposure to SARS-CoV-2 (event) Not sure [facility] Smoking Status Start Date Stop Date Source Unknown if ever smoked [facility] Medications Ordered Medication Name Filled Medication Name Start Date Stop Date Current Medication? Ordering Clinician Indication Dosage Frequency Signature (SIG) Comments Components Source hydrOXYzine 10 mg tablet 11-18 00:00: 00 Yes [id number] 10mg Take 1 tablet by mouth every 6 (six) hours as needed for Itching. [facility] LORazepam (ATIVAN) 0.5 mg tablet 11-18 00:00: 00 Yes [id number] .5mg Take 1 tablet by mouth every 4 (four) hours as needed for Anxiety. [facility] Vital Signs Vital Name Observation Time Observation Value Comments S reji Heart rate 2019-11-19 18:19:00 69 /min [facility] Body temperature 2019-11-19 18:19:00 37.39 Lisandra [facility] Respiratory rate 2019-11-19 18:19:00 16 /min [facility] Body height 2019-11-19 18:19:00 182.9 cm [facility] Body weight 2019-11-19 18:19:00 68.04 kg [facility] BMI 2019-11-19 18:19:00 20.34 kg/m2 [facility] Oxygen saturation in Arterial blood by Pulse oximetry 2019-11-19 18:19:00 100 /min [facility] Systolic blood pressure 2019-11-19 18:19:00 122 mm[Hg] [facility] Diastolic blood pressure 2019-11-19 18:19:00 79 mm[Hg] [facility] Heart rate 2019-11-19 18:19:00 69 /min [facility] Body temperature 2019-11-19 18:19:00 37.39 Lisandra [facility] Respiratory rate 2019-11-19 18:19:00 16 /min [facility] Body height 2019-11-19 18:19:00 182.9 cm [facility] Body weight 2019-11-19 18:19:00 68.04 kg [facility] BMI 2019-11-19 18:19:00 20.34 kg/m2 [facility] Oxygen saturation in Arterial blood by Pulse oximetry 2019-11-19 18:19:00 100 /min [facility] Systolic blood pressure 2019-11-19 18:19:00 122 mm[Hg] [facility] Diastolic blood pressure 2019-11-19 18:19:00 79 mm[Hg] [facility] Procedures Procedure Date / Time Performed Performing Clinicia n Source NOTICE OF PRIVACY PRACTICES 2019-11-19 18:09:36 Doctor Unassigned, [place] [facility] CONSENT/REFUSAL FOR DIAGNOSIS AND TREATMENT 2019-11-19 18:09:12 Doctor Unassigned, [place] [facility] Encounters Start Date/Time End Date/Time Encounter Type Admission Type Attending Clinicians Care Facility Care Department Encounter ID Source 2020-01-01 01:09:04 2020-01-01 01:09:04 Emergency X ABBY MOCK [facility] ERT [id number] [facility] 2019-11-19 13:21:25 2019-11-19 14:37:00 Emergency Tono Varela [facility] [id number] [facility] 2019-11-19 13:21:25 2019-11-19 14:37:00 Emergency Tono Varela [facility] [id number] 2019-11-19 13:09:00 2019-11-19 13:09:00 Emergency X TONO VARELA [facility] ERT [id number] [facility]
[2024-03-23] MEDS ORDERED: LORAZEPAM 1 MG TABLET ONE (00:54)
--- NOTE | 2024-03-23 03:02 | EDPHYS ---
Physician Documentation [facility] Name: Hermann Blackburn Age: 43 yrs Sex: Male : 1980 Arrival Date: 03/23/2024 Time: 00:37 Bed 14 Private MD: ED Physician Loy Rey HPI: 03/23 03:28 This 43 yrs old Male presents to ER via EMS with complaints of panic attack, auditory rt hallucinations. 03:28 Patient presents to the ED with reported anxiety disorder, auditory hallucinations. The rt patient denies suicidal ideation, homicidal ideation. Denies physical complaints. Symptoms are moderate in severity, no other aggravating alleviating factors.. Historical: - Allergies: 00:50 No Known Allergies; al5 - PMHx: 00:50 Anxiety; Depression; Hypertension; PTSD; schizoaffective; Schizophrenia; al5 - PSHx: 00:50 None; al5 - Immunization history:: Adult Immunizations up to date. - Infectious Disease History:: Denies. - Social history:: Smoking status: unknown. - Family history:: not pertinent. ROS: 03:28 Constitutional: Negative for fever, chills, and weight loss, Cardiovascular: Negative rt for chest pain, palpitations, and edema, Respiratory: Negative for shortness of breath, cough, wheezing, and pleuritic chest pain, Abdomen/GI: Negative for abdominal pain, nausea, vomiting, diarrhea, and constipation, MS/Extremity: Negative for injury and deformity, 03:28 Psych: Positive for anxiety, auditory hallucinations, Exam: 03:28 Constitutional: This is a well developed, well nourished patient who is awake, alert, rt and in no acute distress. Head/Face: Normocephalic, atraumatic. Chest/axilla: Normal chest wall appearance and motion. Nontender with no deformity. No lesions are appreciated. Cardiovascular: Regular rate and rhythm with a normal S1 and S2. No gallops, murmurs, or rubs. Normal PMI, no JVD. No pulse deficits. Respiratory: Lungs have equal breath sounds bilaterally, clear to auscultation and percussion. No rales, rhonchi or wheezes noted. No increased work of breathing, no retractions or nasal flaring. Abdomen/GI: Soft, non-tender, with normal bowel sounds. No distension or tympany. No guarding or rebound. No evidence of tenderness throughout. Skin: Warm, dry with normal turgor. Normal color with no rashes, no lesions, and no evidence of cellulitis. MS/ Extremity: Pulses equal, no cyanosis. Neurovascular intact. Full, normal range of motion. 03:28 Psych: Denies SI, HI. Vital Signs: 00:44 BP 128 / 92; Pulse 80; Resp 18; Temp 97.7; Pulse Ox 100% on R/A; Weight 79.38 kg; al5 Height 6 ft. 0 in. ; Pain 0/10; 03:17 al5 00:44 Body Mass Index 23.73 (79.38 kg, 182.88 cm) al5 00:44 Pain Scale: Adult al5 03:17 patient refused vitals al5 MDM: 00:47 Patient medically screened. rt 03:28 Differential Diagnosis Anxiety disorder, schizoaffective. Data reviewed: vital signs, rt nurses notes. I considered the following discharge prescriptions or medication management in the emergency department Medications were administered in the Emergency Department. See MAR. ED course: Patient is not suicidal nor homicidal. I do not believe that he requires involuntary hospitalization. Patient initially stated that he wished to go to a psychiatric hospital. I offered to help arrange this for the patient but stated that we needed blood work, urine. Patient subsequently refused this. As he is not on PRIYANKA nor does he require 1, cannot force patient to obtain these. At this time, no further evaluation is needed in the emergency department, he will be discharged to follow-up as an outpatient.. 03/23 00:56 Order name: Suicide Screening (Meryl); Complete Time: 01:08 rt Administered Medications: 00:58 Drug: LORazepam PO 2 mg PO once Route: PO; al5 03:17 Follow up: Response: No adverse reaction; Anxiety decreased al5 Disposition Summary: 03/23/24 03:02 Discharge Ordered Notes: Location: Home rt Problem: new rt Symptoms: have improved rt Condition: Stable rt Diagnosis - Anxiety disorder, unspecified rt - Auditory hallucinations rt Followup: rt - With: Private Physician - When: 2 - 3 days - Reason: Discharge Instructions: - Discharge Summary Sheet rt - Panic Attack rt Forms: - Medication Reconciliation Form rt - Antibiotic Education rt - Prescription Opioid Use rt - Patient Portal Instructions rt - Leadership Thank You Letter rt Signatures: Dispatcher [employer] EDMS [place], Loy, MD MD rt Brenda Stephens, RN RN al5
--- NOTE | 2024-03-23 03:02 | ER ---
Nurse's Notes [facility] Name: Hermann Blackburn Age: 43 yrs Sex: Male : 1980 Arrival Date: 03/23/2024 Time: 00:37 Bed 14 Private MD: Diagnosis: Anxiety disorder, unspecified;Auditory hallucinations Presentation: 03/23 00:44 Chief complaint: Patient states: states that he needs to be in the hospital and that he al5 is fearing for his life. states he has been getting threats, has hx of schizoaffective disorder, bipolar, anxiety. has not been taking his medications. Coronavirus screen: At this time, the client does not indicate any symptoms associated with coronavirus-19. Ebola Screen: No symptoms or risks identified at this time. Initial Sepsis Screen: Does the patient meet any 2 criteria? No. Patient's initial sepsis screen is negative. Does the patient have a suspected source of infection? No. Patient's initial sepsis screen is negative. Risk Assessment: Do you want to hurt yourself or someone else? Patient reports no desire to harm self or others. Other: is experiencing auditory hallucinations. Onset of symptoms was March 23, 2024. 00:44 Method Of Arrival: EMS: [facility] al5 00:44 Acuity: MEGHNA 2 al5 Triage Assessment: 00:44 General: Appears distressed, Behavior is cooperative, anxious. Pain: Denies pain. EENT: al5 No signs and/or symptoms were reported regarding the EENT system. Neuro: Level of Consciousness is awake, alert, obeys commands, listless, Oriented to person, place, time, situation. Cardiovascular: Capillary refill < 3 seconds Patient's skin is warm and dry. Respiratory: Airway is patent Respiratory effort is even, unlabored, Respiratory pattern is regular, symmetrical. GI: No signs and/or symptoms were reported involving the gastrointestinal system. : No signs and/or symptoms were reported regarding the genitourinary system. Derm: Skin is intact, Skin is pink, warm \T\ dry. normal. Musculoskeletal: No signs and/or symptoms reported regarding the musculoskeletal system. Historical: - Allergies: 00:50 No Known Allergies; al5 - PMHx: 00:50 Anxiety; Depression; Hypertension; PTSD; schizoaffective; Schizophrenia; al5 - PSHx: 00:50 None; al5 - Immunization history:: Adult Immunizations up to date. - Infectious Disease History:: Denies. - Social history:: Smoking status: unknown. - Family history:: not pertinent. Screenin:10 [facility] ED Fall Risk Assessment (Adult) History of falling in the last 3 months, al5 including since admission No falls in past 3 months (0 pts) Confusion or Disorientation No (0 pts) Intoxicated or Sedated No (0 pts) Impaired Gait No (0 pts) Mobility Assist Device Used No (0 pt) Altered Elimination No (0 pt) Score/Fall Risk Level 0 - 2 = Low Risk Oriented to surroundings, Maintained a safe environment, Hourly rounding (assess needs \T\ fall precautionary measures) done. Abuse screen: Denies threats or abuse. Denies injuries from another. Nutritional screening: No deficits noted. Tuberculosis screening: No symptoms or risk factors identified. Assessment: 00:44 Reassessment: see triage assessment. al5 01:07 Reassessment: patient refusing all blood work and diagnostics, charge nurse notified, al5 charge nurse aware, notifying md. 01:31 Reassessment: patient refusing blood work and diagnostics after being spoken with by al5 the charge nurse. patient has been informed by this nurse and charge nurse that [facility] will only speak with him once the patient has been medically cleared. patient verbalizes understanding, agrees to the blood work, then immediately refuses blood work and diagnostics again. charge nurse aware. 01:43 Reassessment: Patient appears in no apparent distress at this time. Patient and/or al5 family updated on plan of care and expected duration. Pain level reassessed. Patient is alert, oriented x 3, equal unlabored respirations, skin warm/dry/pink. patient speaking with inanimate objects at this time. 02:02 Reassessment: Patient appears in no apparent distress at this time. Patient and/or al5 family updated on plan of care and expected duration. Pain level reassessed. Patient is alert, oriented x 3, equal unlabored respirations, skin warm/dry/pink. patient resting with eyes closed at this time. 03:10 Reassessment: Patient appears in no apparent distress at this time. Patient and/or al5 family updated on plan of care and expected duration. Pain level reassessed. Patient is alert, oriented x 3, equal unlabored respirations, skin warm/dry/pink. patient refusing all blood work and diagnostics and vitals, md and charge nurse aware. pt to be discharged home. Vital Signs: 00:44 BP 128 / 92; Pulse 80; Resp 18; Temp 97.7; Pulse Ox 100% on R/A; Weight 79.38 kg; al5 Height 6 ft. 0 in. ; Pain 0/10; 03:17 al5 00:44 Body Mass Index 23.73 (79.38 kg, 182.88 cm) al5 00:44 Pain Scale: Adult al5 03:17 patient refused vitals al5 ED Course: 00:42 Patient arrived in ED. vc1 00:42 Loy Rey MD is Attending Physician. rt 00:43 Brenda Stephens, JEFF is Primary Nurse. al5 00:44 Arm band placed on right wrist. Patient placed in the treatment room, on a stretcher. al5 00:50 Triage completed. al5 01:11 Patient has correct armband on for positive identification. Bed in low position. Call al5 light in reach. Side rails up X 1. Provided Education on: plan of care. 01:11 No provider procedures requiring assistance completed. al5 03:17 Patient did not have IV access during this emergency room visit. al5 Administered Medications: 00:58 Drug: LORazepam PO 2 mg PO once Route: PO; al5 03:17 Follow up: Response: No adverse reaction; Anxiety decreased al5 Medication: 01:11 VIS not applicable for this client. al5 Outcome: 03:02 Discharge ordered by MD. rt 03:17 Discharged to home ambulatory, al5 03:17 Condition: good 03:17 Discharge instructions given to patient, Instructed on discharge instructions, follow up and referral plans. Demonstrated understanding of instructions, follow-up care, 03:17 Patient left the ED. al5 Signatures: Tami Song RN RN vc1 Loy Rey MD MD rt Brenda Stephens RN RN al5 Corrections: (The following items were deleted from the chart) 01:44 01:43 Reassessment: Patient appears in no apparent distress at this time. Patient al5 and/or family updated on plan of care and expected duration. Pain level reassessed. Patient is alert, oriented x 3, equal unlabored respirations, skin warm/dry/pink. patient speaking with inanimate objects at this time. Patient states symptoms have not improved. al5
[2024-03-23 03:46] VITALS: BP 128/92; TEMP 97.7; O2SAT 100
== END 2024-03-23 03:17 | disposition home or self-care (01) ==
LOC: ER 00:37
DX: F41.9 Anxiety disorder, unspecified (principal); R44.0 Auditory hallucinations
CPT/HCPCS: 99283

== ENCOUNTER 2024-04-04 04:10 | Emergency (ER) | payer OTHER ==
--- OUTSIDE RECORDS SUMMARY | 2024-04-04 04:13 | XMS REPORT | Continuity of Care Document ---
Author Name Unknown Address [address] [facility] [address] [place] [address] [facility] Address [address] [facility] [address] [place] [address] Care Team Providers Care Creative Manager Name Role Phone ABBY MOCK Attending Clinician Unavailable Tono Varela DO Attending Clinician [phone] TONO VARELA Attending Clinician Unavailable Payers Payer Name Policy Type Policy Number Effective Date Expirati on Date Source MEDICAID PENDING PENDING 2020 00:00:00 Allergies, Adverse Reactions, Alerts Allergy Name Allergy Type Status Severity Reaction(s) Onset Date Inactive Date Treating Clinician Comments Source NO KNOWN ALLERGIE S Drug Class Active [facility] Social History Social Habit Start Date Stop Date Quantity Comments Source Sex Assigned At [facility] Exposure to SARS-CoV-2 (event) Not sure [facility] Smoking Status Start Date Stop Date Source Unknown if ever smoked [facility] Medications Ordered Medication Name Filled Medication Name Start Date Stop Date Current Medication? Ordering Clinician Indication Dosage Frequency Signature (SIG) Comments Components Source hydrOXYzine 10 mg tablet 11-18 00:00: 00 Yes [id number] 10mg Take 1 tablet by mouth every 6 (six) hours as needed for Itching. [facility] LORazepam (ATIVAN) 0.5 mg tablet 11-18 00:00: 00 Yes [id number] .5mg Take 1 tablet by mouth every 4 (four) hours as needed for Anxiety. [facility] Vital Signs Vital Name Observation Time Observation Value Comments S reji Heart rate 2019-11-19 18:19:00 69 /min [facility] Body temperature 2019-11-19 18:19:00 37.39 Lisandra [facility] Respiratory rate 2019-11-19 18:19:00 16 /min [facility] Body height 2019-11-19 18:19:00 182.9 cm [facility] Body weight 2019-11-19 18:19:00 68.04 kg [facility] BMI 2019-11-19 18:19:00 20.34 kg/m2 [facility] Oxygen saturation in Arterial blood by Pulse oximetry 2019-11-19 18:19:00 100 /min [facility] Systolic blood pressure 2019-11-19 18:19:00 122 mm[Hg] [facility] Diastolic blood pressure 2019-11-19 18:19:00 79 mm[Hg] [facility] Heart rate 2019-11-19 18:19:00 69 /min [facility] Body temperature 2019-11-19 18:19:00 37.39 Lisandra [facility] Respiratory rate 2019-11-19 18:19:00 16 /min [facility] Body height 2019-11-19 18:19:00 182.9 cm [facility] Body weight 2019-11-19 18:19:00 68.04 kg [facility] BMI 2019-11-19 18:19:00 20.34 kg/m2 [facility] Oxygen saturation in Arterial blood by Pulse oximetry 2019-11-19 18:19:00 100 /min [facility] Systolic blood pressure 2019-11-19 18:19:00 122 mm[Hg] [facility] Diastolic blood pressure 2019-11-19 18:19:00 79 mm[Hg] [facility] Procedures Procedure Date / Time Performed Performing Clinicia n Source NOTICE OF PRIVACY PRACTICES 2019-11-19 18:09:36 Doctor Unassigned, [place] [facility] CONSENT/REFUSAL FOR DIAGNOSIS AND TREATMENT 2019-11-19 18:09:12 Doctor Unassigned, [place] [facility] Encounters Start Date/Time End Date/Time Encounter Type Admission Type Attending Clinicians Care Facility Care Department Encounter ID Source 2020-01-01 01:09:04 2020-01-01 01:09:04 Emergency X ABBY MOCK [facility] ERT [id number] [facility] 2019-11-19 13:21:25 2019-11-19 14:37:00 Emergency Singer [facility] [id number] 2019-11-19 13:21:25 2019-11-19 14:37:00 Emergency Singer [facility] [id number] [facility] 2019-11-19 13:09:00 2019-11-19 13:09:00 Emergency X TONO VARELA [facility] ERT [id number] [facility]
--- NOTE | 2024-04-04 04:23 | ER ---
Nurse's Notes [facility] Name: Hermann Blackburn Age: 43 yrs Sex: Male : 1980 Arrival Date: 04/04/2024 Time: 04:10 Bed 6 Private MD: Diagnosis: Anxiety disorder, unspecified;Acute anxiety attack Presentation: 04/04 04:12 Chief complaint: EMS states: Called for being anxious, overwhelmed, hearing voices. vc1 Coronavirus screen: Client denies travel out of the [place] in the last 14 days. At this time, the client does not indicate any symptoms associated with coronavirus-19. Ebola Screen: Patient negative for fever greater than or equal to 101.5 degrees Fahrenheit, and additional compatible Ebola Virus Disease symptoms Patient denies exposure to infectious person. Patient denies travel to an Ebola-affected area in the 21 days before illness onset. No symptoms or risks identified at this time. Initial Sepsis Screen: Does the patient meet any 2 criteria? No. Patient's initial sepsis screen is negative. Does the patient have a suspected source of infection? No. Patient's initial sepsis screen is negative. Risk Assessment: Do you want to hurt yourself or someone else? Patient reports no desire to harm self or others. Onset of symptoms was April 04, 2024. 04:12 Method Of Arrival: EMS: [facility] vc1 04:12 Acuity: MEGHNA 3 vc1 Triage Assessment: 04:14 General: Appears in no apparent distress. uncomfortable, Behavior is anxious, vc1 uncooperative. Pain: Denies pain. EENT: No deficits noted. No signs and/or symptoms were reported regarding the EENT system. Neuro: Level of Consciousness is awake, alert, obeys commands, Oriented to person, place, time, situation, Appropriate for age. Cardiovascular: Heart tones S1 S2 Capillary refill < 3 seconds Patient's skin is warm and dry. Respiratory: Airway is patent Respiratory effort is even, unlabored, Respiratory pattern is regular, symmetrical, Breath sounds are clear bilaterally. GI: Abdomen is flat, non-distended, Bowel sounds present X 4 quads. : No deficits noted. No signs and/or symptoms were reported regarding the genitourinary system. Derm: Skin is healthy with good turgor, Skin is dry, Skin is normal, Skin temperature is warm. Musculoskeletal: No deficits noted. No signs and/or symptoms reported regarding the musculoskeletal system. Historical: - Allergies: 04:13 No Known Allergies; vc1 - PMHx: 04:13 Anxiety; Depression; Hypertension; PTSD; schizoaffective; Schizophrenia; vc1 - PSHx: 04:13 None; vc1 - Immunization history:: Client reports receiving the 2nd dose of the Covid vaccine. - Infectious Disease History:: Denies. - Social history:: Smoking status: Patient reports the use of cigarette tobacco products, smokes one pack cigarettes per day. - Family history:: not pertinent. Screenin:16 [facility] ED Fall Risk Assessment (Adult) History of falling in the last 3 months, vc1 including since admission No falls in past 3 months (0 pts) Confusion or Disorientation No (0 pts) Intoxicated or Sedated No (0 pts) Impaired Gait No (0 pts) Mobility Assist Device Used No (0 pt) Altered Elimination No (0 pt) Score/Fall Risk Level 0 - 2 = Low Risk Oriented to surroundings, Maintained a safe environment, Educated pt \T\ family on fall prevention, incl call for assistance when getting out of bed. Abuse screen: Denies threats or abuse. Nutritional screening: No deficits noted. Tuberculosis screening: No symptoms or risk factors identified. Assessment: 04:18 Reassessment: PATIENT REFUSED MEDICINE. ha1 04:18 General: Pt refuses to take ordered IM medication and requests ativan PO. Pt informed vc1 by provider that he can not have ativan. Pt asks if it is ok if he just leaves. . Vital Signs: 04:12 BP 140 / 127; Pulse 110; Resp 18; Temp 97.2; Pulse Ox 100% ; vc1 [place] Coma Score: 05:53 Eye Response: spontaneous(4). Motor Response: obeys commands(6). Verbal Response: sp4 oriented(5). Total: 15. ED Course: 04:11 Patient arrived in ED. vc1 04:13 Micha Nesbitt MD is Attending Physician. sp4 04:13 Triage completed. vc1 04:19 Arm band placed on right wrist. vc1 04:19 Pt refused to sit on the bed or in a chair. vc1 04:19 No provider procedures requiring assistance completed. vc1 04:29 REVA PEARSON, RN is Primary Nurse. dd2 04:29 Provided Education on: medication. dd2 04:29 Patient did not have IV access during this emergency room visit. dd2 Administered Medications: 04:18 Not Given (Patient Refused): [id number] mg IM once ha1 Medication: 04:16 VIS not applicable for this client. vc1 Outcome: 04:23 Discharge ordered by . brady 04:29 Discharged to home ambulatory, dd2 04:29 Condition: stable 04:29 Discharge instructions given to patient, Instructed on discharge instructions, :29 Instructed on Demonstrated understanding of instructions, follow-up care, :31 Patient left the ED. dd2 Signatures: Tami Song RN RN vc1 Paula Welsh RN RN ha1 Micha Nesbitt MD MD sp4 REVA PEARSON, RN RN dd2
--- NOTE | 2024-04-04 04:23 | EDPHYS ---
Physician Documentation [facility] Name: Hermann Blackburn Age: 43 yrs Sex: Male : 1980 Arrival Date: 04/04/2024 Time: 04:10 Bed 6 Private MD: ED Physician Micha Nesbitt HPI: 04/04 04:13 This 43 yrs old Male presents to ER via EMS with complaints of Anxiety attack sp4 . 05:53 Patient presents with EMS with complaint of anxiety. Patient states he would like to sp4 get Ativan. Historical: - Allergies: 04:13 No Known Allergies; vc1 - PMHx: 04:13 Anxiety; Depression; Hypertension; PTSD; schizoaffective; Schizophrenia; vc1 - PSHx: 04:13 None; vc1 - Immunization history:: Client reports receiving the 2nd dose of the Covid vaccine. - Infectious Disease History:: Denies. - Social history:: Smoking status: Patient reports the use of cigarette tobacco products, smokes one pack cigarettes per day. - Family history:: not pertinent. ROS: 05:53 Constitutional: Negative for fever, chills, and weight loss, Positive for anxiety sp4 05:53 All other systems are negative, Exam: 05:53 Constitutional: This is a well developed, well nourished patient who is awake, alert, sp4 anxious appearing Head/Face: Normocephalic, atraumatic. Eyes: Pupils equal round and reactive to light, extra-ocular motions intact. Lids and lashes normal. Conjunctiva and sclera are not injected. Cornea within normal limits. Periorbital areas with no swelling, redness, or edema. ENT: Nares patent. No nasal discharge, no septal abnormalities noted. Tympanic membranes are normal and external auditory canals are clear. Oropharynx with no redness, swelling, or masses, exudates, or evidence of obstruction, uvula midline. Mucous membranes moist. Neck: Trachea midline, no thyromegaly or masses palpated, and no cervical lymphadenopathy. Supple, full range of motion without nuchal rigidity, or vertebral point tenderness. Chest/axilla: Normal chest wall appearance and motion. Nontender with no deformity. No lesions are appreciated. Cardiovascular: Regular rate and rhythm with a normal S1 and S2. No gallops, murmurs, or rubs. Normal PMI, no JVD. No pulse deficits. Respiratory: Lungs have equal breath sounds bilaterally, clear to auscultation and percussion. No rales, rhonchi or wheezes noted. No increased work of breathing, no retractions or nasal flaring. Abdomen/GI: Soft, with normal bowel sounds. No distension or tympany. No guarding or rebound. No evidence of tenderness throughout. Back: No spinal tenderness. No costovertebral tenderness. Skin: Warm, dry with normal turgor. Normal color with no rashes, no lesions, and no evidence of cellulitis. MS/ Extremity: Pulses equal, no cyanosis. Neurovascular intact. Full, normal range of motion. Neuro: Awake and alert, GCS 15, oriented to person, place, time, and situation. Cranial nerves II-XII grossly intact. Motor strength 5/5 in all extremities. Sensory grossly intact. Psych: Awake, alert, with orientation to person, place , anxious appearing Vital Signs: 04:12 BP 140 / 127; Pulse 110; Resp 18; Temp 97.2; Pulse Ox 100% ; vc1 [place] Coma Score: 05:53 Eye Response: spontaneous(4). Motor Response: obeys commands(6). Verbal Response: sp4 oriented(5). Total: 15. MDM: 04:23 Patient medically screened. sp4 05:56 Differential diagnosis: drug withdrawal. acute psychotic break, depression, psychosis sp4 secondary to non-compliance. Data reviewed: vital signs, nurses notes. ED course: Patient was offered Geodon but he has refused. Patient then walked out of the emergency room. Will provide informed discharge. Administered Medications: 04:18 Not Given (Patient Refused): [id number] mg IM once ha1 Disposition Summary: 04/04/24 04:23 Discharge Ordered Notes: Location: Home sp4 Problem: new sp4 Symptoms: have improved sp4 Condition: Stable sp4 Diagnosis - Anxiety disorder, unspecified sp4 - Acute anxiety attack sp4 Followup: sp4 - With: Private Physician - When: 7 - 10 days - Reason: Recheck today's complaints Discharge Instructions: - Discharge Summary Sheet sp4 - Managing Anxiety, Adult sp4 Signatures: Tami Song RN RN vc1 Micha Nesbitt MD MD sp4 Welsh, Paula RN ha1
[2024-04-04 09:56] VITALS: BP 140/127; TEMP 97.2; O2SAT 100
== END 2024-04-04 04:31 | disposition home or self-care (01) ==
LOC: ER 04:10
DX: F41.0 Panic disorder [episodic paroxysmal anxiety] (principal)
CPT/HCPCS: 99283

== ENCOUNTER 2025-02-16 11:07 | Emergency (ER) | payer OTHER ==
--- OUTSIDE RECORDS SUMMARY | 2025-02-16 11:22 | XMS REPORT | Continuity of Care Document ---
Author Name Unknown Address [address] [facility] [address] [place] [address] Organization [facility] [place] Address [address] [facility] [address] [place] [address] Care Team Providers Care Senior Administrator Support Name Role Phone ABBY MOCK Attending Clinician Unavailable Tono Varela DO Attending Clinician TONO VARELA Attending Clinician Unavailable Payers Payer Name Policy Type Policy Number Effective Date Expirati on Date Source MEDICAID PENDING PENDING 2020 00:00:00 Allergies, Adverse Reactions, Alerts Allergy Name Allergy Type Status Severity Reaction(s) Onset Date Inactive Date Treating Clinician Comments Source NO KNOWN ALLERGIE S Drug Class Active [facility] Social History Social Habit Start Date Stop Date Quantity Comments Source Sex Assigned At [facility] Exposure to SARS-CoV-2 (event) Not sure [facility] Smoking Status Start Date Stop Date Source Unknown if ever smoked [facility] Medications Ordered Medication Name Filled Medication Name Start Date Stop Date Current Medication? Ordering Clinician Indication Dosage Frequency Signature (SIG) Comments Components Source hydrOXYzine 10 mg tablet 11-18 00:00: 00 Yes [id number] 10mg Take 1 tablet by mouth every 6 (six) hours as needed for Itching. [facility] LORazepam (ATIVAN) 0.5 mg tablet 11-18 00:00: 00 Yes [id number] .5mg Take 1 tablet by mouth every 4 (four) hours as needed for Anxiety. [facility] Vital Signs Vital Name Observation Time Observation Value Comments S reji Heart rate 2019-11-19 18:19:00 69 /min Unive [facility] Body temperature 2019-11-19 18:19:00 37.39 Lisandra [facility] Respiratory rate 2019-11-19 18:19:00 16 /min [facility] Body height 2019-11-19 18:19:00 182.9 cm [facility] Body weight 2019-11-19 18:19:00 68.04 kg [facility] BMI 2019-11-19 18:19:00 20.34 kg/m2 [facility] Oxygen saturation in Arterial blood by Pulse oximetry 2019-11-19 18:19:00 100 /min [facility] Systolic blood pressure 2019-11-19 18:19:00 122 mm[Hg] [facility] Diastolic blood pressure 2019-11-19 18:19:00 79 mm[Hg] [facility] Heart rate 2019-11-19 18:19:00 69 /min [facility] Body temperature 2019-11-19 18:19:00 37.39 Lisandra [facility] Respiratory rate 2019-11-19 18:19:00 16 /min [facility] Body height 2019-11-19 18:19:00 182.9 cm [facility] Body weight 2019-11-19 18:19:00 68.04 kg [facility] BMI 2019-11-19 18:19:00 20.34 kg/m2 [facility] Oxygen saturation in Arterial blood by Pulse oximetry 2019-11-19 18:19:00 100 /min [facility] Systolic blood pressure 2019-11-19 18:19:00 122 mm[Hg] [place] [facility] Diastolic blood pressure 2019-11-19 18:19:00 79 mm[Hg] [facility] Procedures Procedure Date / Time Performed Performing Clinicia n Source NOTICE OF PRIVACY PRACTICES 2019-11-19 18:09:36 Doctor Unassigned, [place] [facility] CONSENT/REFUSAL FOR DIAGNOSIS AND TREATMENT 2019-11-19 18:09:12 Doctor Unassigned, [place] [facility] Encounters Start Date/Time End Date/Time Encounter Type Admission Type Attending Clinicians Care Facility Care Department Encounter ID Source 2020-01-01 01:09:04 2020-01-01 01:09:04 Emergency X ABBY MOCK [facility] ERT [id number] [facility] 2019-11-19 13:21:25 2019-11-19 14:37:00 Emergency Tono Varela [facility] [id number] [facility] 2019-11-19 13:21:25 2019-11-19 14:37:00 Emergency Tono Varela [facility] [id number] 2019-11-19 13:09:00 2019-11-19 13:09:00 Emergency X TONO VARELA [facility] ERT [id number] [facility]
--- NOTE | 2025-02-16 12:15 | EDPHYS ---
Physician Documentation [facility] Name: Hermann Blackburn Age: 44 yrs Sex: Male : 1980 Arrival Date: 02/16/2025 Time: 11:07 Bed 19 Private MD: ED Physician Kirk Watson HPI: 02/16 12:09 This 44 yrs old Male presents to ER via [employer] with complaints of anxiety. rn 12:09 Patient brought in by police after 911 was called, was found to be arguing with his rn mother, police communications dispatcher states that seem like mother was doing most of the yelling and patient was not doing anything violent. Patient has history of anxiety and bipolar disorder and schizoaffective disorder. Patient is against taking medication. Patient states he is doing okay he is just living in a stressful household. Patient is happy that he is starting work in 4 days. Denies any suicidal or homicidal ideations. Patient states is more calm now that he has been taken out of the situation.. Historical: - PMHx: 11:12 Anxiety; Depression; Hypertension; PTSD; schizoaffective; Schizophrenia; ll1 - Immunization history:: Adult Immunizations up to date. - Social history:: Smoking status: Patient reports the use of cigarette tobacco products, smokes one-half pack cigarettes per day. - Family history:: not pertinent. - Hospitalizations: : No recent hospitalization is reported. ROS: 12:09 Constitutional: Negative for fever, chills, and weight loss, Neck: Negative for injury, rn pain, and swelling, Cardiovascular: Negative for chest pain, palpitations, and edema, Respiratory: Negative for shortness of breath, cough, wheezing, and pleuritic chest pain, Abdomen/GI: Negative for abdominal pain, nausea, vomiting, diarrhea, and constipation, MS/Extremity: Negative for injury and deformity, Skin: Negative for injury, rash, and discoloration, Neuro: Negative for headache, weakness, numbness, tingling, and seizure, Exam: 12:09 Constitutional: This is a well developed, well nourished patient who is awake, alert, rn and in no acute distress. Calm affect, having complete conversation with me and staff. Is not responding to internal stimuli Cardiovascular: Tachycardic, regular. no pulse deficits. Respiratory: No increased work of breathing, no retractions or nasal flaring. Neuro: Awake and alert, GCS 15, oriented to person, place, time, and situation. Cranial nerves II-XII grossly intact. Motor strength 5/5 in all extremities. Sensory grossly intact. Cerebellar exam normal. Normal gait. Vital Signs: 11:18 Resp 17; Temp 97.4; ll1 11:31 BP 106 / 72; Pulse 113; Pulse Ox 99% on R/A; ll1 MDM: 11:10 Medical Screening Exam initiated rn 12:09 Differential diagnosis: Anxiety, bipolar disorder, schizoaffective disorder. Data rn reviewed: vital signs, nurses notes, and as a result, I will discharge patient. Counseling: I had a detailed discussion with the patient and/or guardian regarding the historical points, exam findings, and any diagnostic results supporting the discharge/admit diagnosis, the need for outpatient follow up, to return to the emergency department if symptoms worsen or persist or if there are any questions or concerns that arise at home. Special discussion: I discussed with the patient/guardian in detail that at this point there is no indication for admission to the hospital. It is understood, however, that if the symptoms persist or worsen the patient needs to return immediately for re-evaluation. ED course: Patient does not have suicidal or homicidal ideations. I have seen this gentleman several times and is actually pretty calm right now. Patient declines any psychiatric medication and plans on starting his job soon and trying to get out of his living situation.. Administered Medications: No medications were administered Disposition Summary: 02/16/25 12:14 Discharge Ordered Notes: Location: Home rn Problem: chronic rn Symptoms: have improved rn Condition: Stable rn Diagnosis - Bipolar disorder, unspecified rn Followup: rn - With: Private Physician - When: As needed - Reason: Recheck today's complaints, Re-evaluation by your physician Discharge Instructions: - Discharge Summary Sheet rn - Managing Bipolar Disorder rn Forms: - Medication Reconciliation Form rn - Antibiotic varnish dipper - Prescription Opioid Use rn - Patient Portal Instructions rn - Leadership Thank You Letter rn Signatures: Kirk Watson MD MD rn Lewis, Lynsay, RN RN ll1
--- NOTE | 2025-02-16 12:15 | ER ---
Nurse's Notes [facility] Name: Hermann Blackburn Age: 44 yrs Sex: Male : 1980 Arrival Date: 02/16/2025 Time: 11:07 Bed 19 Private MD: Diagnosis: Bipolar disorder, unspecified Presentation: 02/16 11:12 Coronavirus screen: Client denies travel out of the [place] in the last 14 days. At this ll1 time, the client does not indicate any symptoms associated with coronavirus-19. Ebola Screen: Patient denies travel to an Ebola-affected area in the 21 days before illness onset. Initial Sepsis Screen: Does the patient meet any 2 criteria? No. Patient's initial sepsis screen is negative. Does the patient have a suspected source of infection? No. Patient's initial sepsis screen is negative. 11:12 Method Of Arrival: Law Enforcement: [place] ll1 11:12 Acuity: [place]GH[place] 3 ll1 11:28 Chief complaint: Patient states: psych history, having stress. Denies SI and HI at this ll1 time. 11:32 Risk Assessment: Do you want to hurt yourself or someone else? Patient reports no ll1 desire to harm self or others. 11:32 Onset of symptoms was February 16, 2025. ll1 Historical: - PMHx: 11:12 Anxiety; Depression; Hypertension; PTSD; schizoaffective; Schizophrenia; ll1 - Immunization history:: Adult Immunizations up to date. - Social history:: Smoking status: Patient reports the use of cigarette tobacco products, smokes one-half pack cigarettes per day. - Family history:: not pertinent. - Hospitalizations: : No recent hospitalization is reported. Screenin:19 [facility] ED Fall Risk Assessment (Adult) History of falling in the last 3 months, jb4 including since admission No falls in past 3 months (0 pts) Confusion or Disorientation No (0 pts) Intoxicated or Sedated No (0 pts) Impaired Gait No (0 pts) Mobility Assist Device Used No (0 pt) Altered Elimination No (0 pt) Score/Fall Risk Level 0 - 2 = Low Risk Oriented to surroundings, Maintained a safe environment. Abuse screen: Denies threats or abuse. Nutritional screening: No deficits noted. Tuberculosis screening: No symptoms or risk factors identified. Assessment: 12:19 General: Appears in no apparent distress. comfortable, Behavior is calm, cooperative, jb4 appropriate for age. Pain: Denies pain. Neuro: Level of Consciousness is awake, alert, obeys commands, Oriented to person, place, time, situation. Cardiovascular: Patient's skin is warm and dry. Respiratory: Airway is patent Respiratory effort is even, unlabored, Respiratory pattern is regular, symmetrical. Derm: Skin is intact, Skin is pink, warm \T\ dry. Musculoskeletal: Circulation, motion, and sensation intact. Range of motion: intact in all extremities. Vital Signs: 11:18 Resp 17; Temp 97.4; ll1 11:31 BP 106 / 72; Pulse 113; Pulse Ox 99% on R/A; ll1 ED Course: 11:08 Patient arrived in ED. ll1 11:10 Kirk Watson MD is Attending Physician. rn 11:11 Arm band placed on. ll1 11:12 Triage completed. ll1 11:31 Nohemi Spear, RN is Primary Nurse. ll1 12:19 Patient has correct armband on for positive identification. Bed in low position. Call jb4 light in reach. Side rails up X 1. Provided Education on: discharge instructions.. 12:19 No provider procedures requiring assistance completed. Patient did not have IV access jb4 during this emergency room visit. Administered Medications: No medications were administered Medication: 12:19 VIS not applicable for this client. jb4 Outcome: 12:14 Discharge ordered by . rn 12:19 Discharged to home ambulatory, jb4 12:19 Condition: stable 12:19 Discharge instructions given to patient, Instructed on discharge instructions, follow up and referral plans. Demonstrated understanding of instructions, follow-up care, 12:26 Patient left the ED. jb4 Signatures: Kirk Watson MD MD rn Bryson, James, RN RN jb4 Nohemi Spera RN RN 1
[2025-02-16 15:39] VITALS: TEMP 97.4
[2025-02-16 15:40] VITALS: BP 106/72; O2SAT 99
== END 2025-02-16 12:26 | disposition home or self-care (01) ==
LOC: ER 11:07
DX: F31.9 Bipolar disorder, unspecified (principal); F17.210 Nicotine dependence, cigarettes, uncomplicated